=== PATIENT | male | born 1960 | race Caucasian/White ===

== ENCOUNTER → 2020-05-13 08:50 | Outpatient (BNVA) | payer MEDICAID, OTHER, SELFPAY | PROVIDERS: PCP Family Medicine; Visit Provider Urology | DX: N40.1 Benign prostatic hyperplasia with lower urinary tract symptoms (principal); R39.14 Feeling of incomplete bladder emptying; R39.12 Poor urinary stream; Z12.5 Encounter for screening for malignant neoplasm of prostate; Z79.899 Other long term (current) drug therapy | CPT/HCPCS: 51798; 81002; 99202 ==

== ENCOUNTER 2020-05-26 11:21 | Outpatient (REF) | payer MEDICAID, OTHER, SELFPAY ==
--- NOTE | 2020-05-26 11:27 | US_ITS ---
EXAMINATION: US PELVIS LIMITED (BLADDER) CLINICAL INFORMATION: Poor urinary stream. COMPARISON: None TECHNIQUE: Real-time imaging of the bladder. FINDINGS: BLADDER: Well distended. No wall thickening, stone or mass. Bilateral ureteral jets are demonstrated. Prevoid bladder volume is 425.1 mL. Postvoid bladder volume is 149.2 mL. The prostate gland is enlarged and measures 5.8 x 5.2 x 3.7 cm, volume 49 mL. US/US bladder IMPRESSION: Large 149 and postvoid bladder residual. Enlarged prostate gland..
[2020-05-26 13:41] LABS: PSA,Total (Free>4and<10) 2.76 ng/mL (0.00-4.00)
== END 2020-05-26 11:22 | disposition home or self-care (01) ==
LOC: HO.US 11:21
PROVIDERS: PCP Internal Medicine; Visit Provider Urology
DX: N40.1 Benign prostatic hyperplasia with lower urinary tract symptoms (principal); R39.12 Poor urinary stream; N13.8 Other obstructive and reflux uropathy
CPT/HCPCS: 76857; 84153

== ENCOUNTER → 2020-06-15 10:32 | Outpatient (BNVA) | payer MEDICAID, OTHER, SELFPAY | PROVIDERS: PCP Internal Medicine; Visit Provider Urology | DX: N40.1 Benign prostatic hyperplasia with lower urinary tract symptoms (principal); R39.12 Poor urinary stream; R39.14 Feeling of incomplete bladder emptying | CPT/HCPCS: 52000; 81002; 99212 ==

== ENCOUNTER 2020-06-28 06:50 | Day surgery (SDC) | payer MEDICAID, OTHER, SELFPAY ==
[2020-06-21 14:58] VITALS: BMI 30.2
--- NOTE | 2020-06-25 12:09 | HO.ANESPROP2 ---
Documented by User: Ekaterina Gee 06/25/20 12:10 HPI - Anesthesia Eval Consult details Narrative: 60yo M for Laser Ablation Prostate PMFSH Past Medical History Medical History Diabetes Elevated cholesterol GERD (gastroesophageal reflux disease) HTN (hypertension) Lab test negative for COVID-19 virus Sleep apnea Thyroid disease Surgical History Surgical History H/O colonoscopy Social History Social History Alcohol intake: never Smoking Status: Never smoker Use of substances other than those prescribed or required for medical reasons: No Advance Directives Information Provided: No Recently lost weight without trying: No Meds Allergies Allergy/AdvReac Type Severity Reaction Status Date / Time No Known Allergies Allergy Verified 06/21/20 15:06 Home Medications Medication Instructions Recorded Confirmed Type tamsulosin 0.4 mg capsule 0.4 mg PO DAILY 05/13/20 05/13/20 History ferrous sulfate [iron] 325 mg PO DAILY 06/21/20 06/21/20 History insulin glargine [Lantus Solostar 45 unit SUBCUT QAM 06/21/20 06/21/20 History U-100 Insulin] levothyroxine 88 mcg PO DAILY 06/21/20 06/28/20 History lisinopril 1 tab PO DAILY 06/21/20 06/21/20 History metformin 850 mg PO BID 06/21/20 06/21/20 History omeprazole 20 mg PO DAILY 06/21/20 06/28/20 History pravastatin 40 mg PO BEDTIME 06/21/20 06/21/20 History vitamin W66-itkjcuvuk factor 1 cap PO DAILY 06/21/20 06/21/20 History Exam Exam Date and Time: June 25, 2020 1209 Height,Weight and Vital Signs: Height 5 ft 2 in Weight 74.843 kg Assessment and Plan Assessment Anesthesia Assessment: Chart Reviewed Documented by User: Kai Alvarado 06/28/20 07:29 [facility] Past Medical History Medical History Diabetes Elevated cholesterol GERD (gastroesophageal reflux disease) HTN (hypertension) Lab test negative for COVID-19 virus Sleep apnea Thyroid disease Surgical History Surgical History H/O colonoscopy Social History Social History Alcohol intake: never Smoking Status: Never smoker Use of substances other than those prescribed or required for medical reasons: No Advance Directives Information Provided: No Recently lost weight without trying: No Meds Allergies Allergy/AdvReac Type Severity Reaction Status Date / Time No Known Allergies Allergy Verified 06/21/20 15:06 Home Medications Medication Instructions Recorded Confirmed Type tamsulosin 0.4 mg capsule 0.4 mg PO DAILY 05/13/20 05/13/20 History ferrous sulfate [iron] 325 mg PO DAILY 06/21/20 06/21/20 History insulin glargine [Lantus Solostar 45 unit SUBCUT QAM 06/21/20 06/21/20 History U-100 Insulin] levothyroxine 88 mcg PO DAILY 06/21/20 06/28/20 History lisinopril 1 tab PO DAILY 06/21/20 06/21/20 History metformin 850 mg PO BID 06/21/20 06/21/20 History omeprazole 20 mg PO DAILY 06/21/20 06/28/20 History pravastatin 40 mg PO BEDTIME 06/21/20 06/21/20 History vitamin U57-cfpmtuunk factor 1 cap PO DAILY 06/21/20 06/21/20 History Exam Airway Mallampati Class: III TM Dist: >3cm Neck ROM: Full
[2020-06-28] VITALS (7 sets, daily range): BP systolic 102–149; BP diastolic 67–88; PULSE 70–83; RESP 16; TEMP 36–36.7; O2SAT 94–99
[2020-06-28 07:20] LABS: Glucose, Whole Blood 115 mg/dL (60-115)
[2020-06-28] MEDS: Lactated Ringers 1,000 ML 100 ML IVCONT (07:23)
--- NOTE | 2020-06-28 09:34 | MHC.SHP ---
Pre-Procedural Eval Section B Chief Complaint: Benign Prostatic Hyperplasia Details of Present Illness: Ongoing BPH. Here for laser ablation Relevant Family History (Specify if Yes): No Relevant Social History: None Present Medications: see Short Stay Collaborative assessment Medical History: No relevant PMH History of Previous Operations: No relevant previous surgery Allergies: Allergies Allergy/AdvReac Type Severity Reaction Status Date / Time No Known Allergies Allergy Verified 06/21/20 15:06 Review of Systems Sugical H&P ROS: Negative: Constitution, Cardiovascular, Respiratory, Neurological, Psychiatric, Hem-Onc, Allergic/Immunologic, Gastrointestinal, Genitourinary, Musculoskeletal, Integumentary, Endocrine and Eyes/Ears/Nose/Throat Exam Surgical H&P Exam: Normal: HEENT, Normal: Heart, Normal: Lungs, Normal: Extremities, Normal: Abdomen, Normal: Skin and Normal: Neurological Plan Diagnosis/Plan: Unchanged I have reviewed the history and physical and performed a pertinent physical examination on my patient. No changes have occurred unless specified.
[2020-06-28] MEDS: levoFLOXacin 500 MG TABLET PO (09:35)
--- NOTE | 2020-06-28 10:09 | PM.OP ---
Brief Operative Note Date of Service: 06/28/20 Pre-op diagnosis: BPH Post-op diagnosis: same Procedure: Laser ablation of prostate Surgeon: Jluis Ferrera MD Anesthesia: GLMA Estimated blood loss (mL): 0 Pathology: none sent Condition: stable Disposition: same day
--- NOTE | 2020-06-28 10:26 | W.PM.OPN ---
Operative Note Operative Note Date of Service: 06/28/20 Narrative: PreOperative Diagnosis: Incomplete bladder emptying Post Operative Diagnosis: Incomplete bladder emptying Procedure: Laser ablation of prostate Surgeon: Dr Jluis Ferrera Anesthesia: General Indications for procedure: This is a 60-year-old male. Had presented with weakness of stream and incomplete bladder emptying. On alpha-dorian still had residual of 150 cc. Recommendation was to perform a prostate procedure attempt open up the prostate and allow bladder empty. On cystoscopy noted to have a high median lip on the prostate. Risks and benefits were explained. He is willing to proceed. Procedure: After informed consent was verified the patient was brought to the operating room and placed in a supine position. Anesthesia was administered per protocol. The patient was placed in modified dorsal lithotomy position and prepped and draped in a sterile fashion. He was noted to have some meatal narrowing. This was dilated using a meatal dilator. Once dilated the resectoscope was placed. Using the dual wave length laser the median lip of the prostate was released with incisions at the 5 and 7 o'clock position. Intervening tissue was ablated. This helped open up the area. He was noted to have small amount of stone debris within his bladder consistent with incomplete bladder emptying. Hemostasis was controlled adequately. A 22 Nauruan 30 cc balloon catheter was placed the completion the procedure. A belladonna and opiate suppository was placed for postprocedure pain relief. He tolerated procedure well was extubated in operating room transferred in stable condition to the recovery area. Pathology: None Drains: 22 Nauruan Leon catheter
--- NOTE | 2020-06-28 11:48 | HO.POSTANES ---
Post Anesthesia Evaluation Post Anesthesia Evaluation Vital Signs: Vital Signs Temp Pulse Resp BP Pulse Ox 06/28/20 11:05 98.0 F 70 16 124/84 98 06/28/20 10:51 70 16 135/88 97 06/28/20 10:36 73 16 103/67 94 06/28/20 10:31 74 16 102/70 94 06/28/20 10:26 73 16 107/71 95 06/28/20 10:21 96.8 F 73 16 120/81 99 06/28/20 07:16 97.1 F 83 16 149/82 H 99 Anesthesia: General LMA Mental Status: Awake Pain Control: Satisfactory Nausea/Vomiting: None Hydration: Adequate Anesthesia-Related Issues: No Anes. Related Issues
== END 2020-06-28 11:52 | disposition home or self-care (01) ==
PROVIDERS: PCP Internal Medicine; Visit Provider Urology
PROC: 0V507ZZ Destruction of Prostate, Via Natural or Artificial Opening (ICD-10-PCS; CPT 52648; principal; 2020-06-28 08:40)
DX: N40.1 Benign prostatic hyperplasia with lower urinary tract symptoms (principal); R39.14 Feeling of incomplete bladder emptying; R39.12 Poor urinary stream; E11.9 Type 2 diabetes mellitus without complications; I10 Essential (primary) hypertension; Z79.4 Long term (current) use of insulin; Z79.899 Other long term (current) drug therapy
CPT/HCPCS: 52648; 82947; J1100; J2250; J2405; J3010

== ENCOUNTER → 2020-07-06 10:00 | Outpatient (BNVA) | payer MEDICAID, SELFPAY | PROVIDERS: PCP Internal Medicine; Visit Provider Urology | DX: Z46.6 Encounter for fitting and adjustment of urinary device (principal); N40.1 Benign prostatic hyperplasia with lower urinary tract symptoms; N13.8 Other obstructive and reflux uropathy; R39.12 Poor urinary stream; R39.14 Feeling of incomplete bladder emptying | CPT/HCPCS: 51700; 99212 ==

== ENCOUNTER → 2020-08-18 10:24 | Outpatient (BNVA) | payer MEDICAID, OTHER, SELFPAY | PROVIDERS: PCP Internal Medicine; Visit Provider Urology | DX: N40.1 Benign prostatic hyperplasia with lower urinary tract symptoms (principal); R39.14 Feeling of incomplete bladder emptying; R39.12 Poor urinary stream | CPT/HCPCS: 51798; 81002; 99212 ==

== ENCOUNTER → 2021-02-16 10:25 | Outpatient (BNVA) | payer MEDICAID, OTHER, SELFPAY | PROVIDERS: PCP Internal Medicine; Visit Provider Urology | DX: N40.1 Benign prostatic hyperplasia with lower urinary tract symptoms (principal); R39.14 Feeling of incomplete bladder emptying | CPT/HCPCS: 51798; 99212 ==

== ENCOUNTER 2022-02-08 12:21 | Outpatient (REF) | payer OTHER, SELFPAY ==
[2022-02-08 14:10] LABS: PSA,Total (Free>4and<10) 2.71 ng/mL (0.00-4.00)
== END 2022-02-08 12:22 | disposition home or self-care (01) ==
LOC: HO.LAB 12:21
PROVIDERS: PCP Internal Medicine; Visit Provider Urology
DX: Z12.5 Encounter for screening for malignant neoplasm of prostate (principal); N13.8 Other obstructive and reflux uropathy; N40.1 Benign prostatic hyperplasia with lower urinary tract symptoms
CPT/HCPCS: 36415; 84153

== ENCOUNTER → 2022-02-16 11:20 | Outpatient (BNVA) | payer OTHER, SELFPAY | PROVIDERS: PCP Internal Medicine; Visit Provider Urology | DX: N40.1 Benign prostatic hyperplasia with lower urinary tract symptoms (principal); N13.8 Other obstructive and reflux uropathy; R39.12 Poor urinary stream | CPT/HCPCS: 51798; 99212 ==

== ENCOUNTER 2023-03-23 16:21 | Outpatient (REF) | payer OTHER, SELFPAY ==
[2023-03-23 18:30] LABS: Prostate Specific Antigen 3.08 ng/mL (<0.05-4.0)
== END 2023-03-23 16:22 | disposition home or self-care (01) ==
LOC: HO.LAB 16:21
PROVIDERS: Visit Provider Urology
DX: N40.1 Benign prostatic hyperplasia with lower urinary tract symptoms (principal); N13.8 Other obstructive and reflux uropathy
CPT/HCPCS: 36415; 84153

== ENCOUNTER 2023-07-11 14:25 | Outpatient (AMB) | payer OTHER, SELFPAY ==
--- NOTE | 2023-07-11 14:54 | MHC.OFFVIS ---
Intake Intake Visit Reasons: 1Y PSA/PVR(set) Intake Note: Patient is Present for Follow Up PSA Urology Medication: Finasteride (states that he is not on any medications from Dr Ferrera) Antibiotic Allergies: None Blood Thinners: none PVR: 0 Allergies No Known Allergies Allergy (Verified 02/15/22 15:25) HPI HPI Comments History of Present Illness Details Isaac is a pleasant male. He is seen for the following urologic conditions - lower urinary tract symptoms Yearly follow-up PVR remains low PSA 3.0 Effective emptying 12 month follow-up Lower urinary tract symptoms - laser prostatectomy June 2020 Current visit is for - further symptom evaluation - symptoms improved Current treatment includes - finasteride Prior treatments include - 06/27 Laser ablation on prostate Prostate Symptom Score - 05/28 Moderate (9-19) Bother 4 Symptoms include - 05/28 incomplete emptying, frequency, weak stream, straining and are progressing. Prior Prostate Score unknown PSA 2.5-4. - 05/28 2.8, 8. 2.3, 02/27 2.7. 03/31 3.0 Prostate volume 0-50gm Diagnosis imaging - 05/28 bladder ultrasound-prostate 50 g, residual 140 cc Plan will be for PVR in 12 months PFS Medical History Diabetes Elevated cholesterol GERD (gastroesophageal reflux disease) HTN (hypertension) Lab test negative for COVID-19 virus Sleep apnea Thyroid disease Surgical History H/O colonoscopy Social History Alcohol intake: never Review of Systems Const Denies chills and Denies fever(s) Card Reports no additional complaints and Denies syncope Resp Denies cough GI Denies abdominal pain and Denies heartburn Reports as per HPI and Denies change in libido Neuro Denies syncope Psych Denies change in libido Endo Denies change in libido Physical Exam Const General: cooperative, healthy appearing, comfortable and no acute distress Orientation/consciousness: patient oriented x3 HEENT Face and sinus: Yes normal facial exam Mouth: moist mucous membranes Neck Neck: Yes normal visual inspection, Yes full ROM and Yes trachea midline Chest Chest palpation & inspection: normal inspection of the chest Resp Effort & Inspection: normal respiratory effort, able to speak in complete sentences and no respiratory distress GI Inspection: Yes normal to inspection Back/Spine/Pelvis Cervical Spine: normal cervical lordosis Thoracic/Lumbar Spine: thoracic and lumbar spine normal to inspection Skin General skin exam: no rashes or lesions noted Neuro General: patient oriented x3, gait normal, tone normal and moves all extremities Extrem General: Yes normal to inspection and Yes capillary refill normal Office Procedures Post Void Residual Post Residual Void Post Void Residual (PVR): 0 [id number] Void Residual by ultrasound Assessment & Plan Assessment & Plan (1) Weak urinary stream: Code(s): R39.12 - Poor urinary stream (2) BPH loc w urin obs/LUTS: Code(s): N40.1 - Benign prostatic hyperplasia with lower urinary tract symptoms (3) Incomplete emptying of bladder due to benign prostatic hyperplasia: Code(s): N40.1 - Benign prostatic hyperplasia with lower urinary tract symptoms; R39.14 - Feeling of incomplete bladder emptying Plan Twelve month follow-up Orders: Orders AMB Post Void Residual by ultrasound Today N40.1 - Benign prostatic hyperplasia with lower urinary tract symptoms, R39.14 - Feeling of incomplete bladder emptying Prostate Specific Antigen 364 Days N40.1 - Benign prostatic hyperplasia with lower urinary tract symptoms Patient Instructions: Imaging studies, laboratory and physical exam results were discussed and reviewed in detail. No major barriers to patient understanding were identified. An opportunity to ask questions regarding the treatment plan was provided. All questions were answered. The patient expressed understanding and agreement with the above treatment plan. The patient is aware they should contact our office by phone for worsening of their current condition or the appearance of new urologic symptoms. Compliance is encouraged with any medications and followup testing that is ordered. It is a privilege to participate in the urologic care of your patient. If you have any questions or concerns regarding treatment for the above conditions, or other urologic issues, please do not hesitate to contact me. The office telephone contact is [phone]. This note is constructed using voice recognition software. While every effort has been made to ensure accuracy laborer powerhouse errors may have been included. Yours sincerely, Dr Jluis Ferrera MD, [facility] - Urology Providers of Expert, Compassionate Care for the Genitourinary System Coding Level of Care Code Est Pt Level 4 (32103) Diagnoses Weak urinary stream R39.12 BPH loc w urin obs/LUTS N40.1 Incomplete emptying of bladder due to benign prostatic hyperplasia N40.1; R39.14 CPT Codes Post Residual Void - PVR CPT Code: 92493-Arii Void Residual by ultrasound ([id number])
== END 2023-07-11 15:19 | disposition home or self-care (01) ==
PROVIDERS: PCP Internal Medicine; Visit Provider Urology
DX: N40.1 Benign prostatic hyperplasia with lower urinary tract symptoms (principal); R39.12 Poor urinary stream; R39.14 Feeling of incomplete bladder emptying
CPT/HCPCS: 99213

== ENCOUNTER → 2023-07-11 14:25 | Outpatient (BNVA) | payer OTHER, SELFPAY | PROVIDERS: Visit Provider Urology | DX: N40.1 Benign prostatic hyperplasia with lower urinary tract symptoms (principal); R39.12 Poor urinary stream; R39.14 Feeling of incomplete bladder emptying | CPT/HCPCS: 51798; 99212 ==

== ENCOUNTER 2023-08-03 11:41 | Outpatient (REF) | payer OTHER, SELFPAY ==
[2023-08-03 13:46] LABS: Anion Gap 14 (12-20); Blood Urea Nitrogen 13 mg/dL (9-16); Calcium 9.4 mg/dL (8.4-10.2); Carbon Dioxide 28 mmol/L (22-29); Chloride 102 mmol/L (96-108); Estimated Glomerular Filt Rate > 60; Glucose Random 185 mg/dL (60-115); Potassium 3.5 mmol/L (3.3-5.1); Sodium 140 mmol/L (135-145)
== END 2023-08-03 11:42 | disposition home or self-care (01) ==
LOC: HO.HHCL 11:41
PROVIDERS: Visit Provider Internal Medicine
DX: E11.649 Type 2 diabetes mellitus with hypoglycemia without coma (principal); Z79.4 Long term (current) use of insulin
CPT/HCPCS: 36415; 80048

== ENCOUNTER 2023-10-23 09:53 | Outpatient (REF) | payer OTHER, SELFPAY ==
[2023-10-23 13:45] LABS: Creatinine Urine 83.91 mg/dL; Microalbum/Creatinine Ratio Ur 7.1 ug/mg cr (<30)
[2023-10-23 14:01] LABS: Alanine Aminotransferase 21 U/L (0-40); Albumin Level 4.5 g/dL (3.5-5.0); Alkaline Phosphatase 74 U/L (39-117); Aspartate Amino Transferase 18 U/L (5-37); Bilirubin Direct 0.1 mg/dL (0.0-0.5); Bilirubin Total 0.3 mg/dL (0.0-1.0); Cholesterol 139 mg/dL (<200); HDL Cholesterol 53 mg/dL (>40); LDL Cholesterol Calculated 70 mg/dL (<100); Total Protein 7.6 g/dL (6.5-8.0); Triglycerides 82 mg/dL (<150)
== END 2023-10-23 09:54 | disposition home or self-care (01) ==
LOC: HO.HHCL 09:53
PROVIDERS: Visit Provider Internal Medicine
DX: E11.649 Type 2 diabetes mellitus with hypoglycemia without coma (principal); Z79.4 Long term (current) use of insulin
CPT/HCPCS: 36415; 80061; 80076; 82043; 82570

== ENCOUNTER 2023-12-06 12:52 | Outpatient (REF) | payer OTHER, SELFPAY ==
--- NOTE | ~2023-12-06 | XR_ITS ---
EXAMINATION: XR FOOT, RIGHT CLINICAL INFORMATION: Order states right plantar pain. Patient states one month denies injury COMPARISON: None available. TECHNIQUE: AP, lateral, and oblique views of the right foot. FINDINGS: Extensive vascular calcifications. Moderate posterior and plantar calcaneal spurs. 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 XR/XR foot RT min 3V IMPRESSION: 1. Moderate posterior and plantar calcaneal spurs. 2. 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 3. Extensive vascular calcifications.
== END 2023-12-06 12:53 | disposition home or self-care (01) ==
LOC: HO.HHCX 12:52
PROVIDERS: Visit Provider Internal Medicine
DX: M79.671 Pain in right foot (principal)
CPT/HCPCS: 73630

== ENCOUNTER 2024-06-12 14:48 | Outpatient (REF) | payer OTHER, SELFPAY ==
[2024-06-12 16:38] LABS: Estimated Average Glucose 160 mg/dL; Hemoglobin A1C 190.7705 umol/L; Hemoglobin A1c % 7.2 % (<6.0); Total Hemoglobin (HGBA1C) 3425.8811 umol/L
[2024-06-12 17:03] LABS: TSH reflex Free T4 1.89 uIU/mL (0.32-4.0)
== END 2024-06-12 14:49 | disposition home or self-care (01) ==
LOC: HO.HHCL 14:48
PROVIDERS: Visit Provider Internal Medicine
DX: E03.9 Hypothyroidism, unspecified (principal); E11.9 Type 2 diabetes mellitus without complications
CPT/HCPCS: 36415; 83036; 84443

== ENCOUNTER 2024-08-19 08:46 | Outpatient (REF) | payer OTHER, SELFPAY ==
--- OUTSIDE RECORDS SUMMARY | 2024-08-19 09:09 | XMS_ITS | Referral Summary ---
Author Organization [facility] Address [address] [place] [address] Care Team Providers Care [employer]erry [employer] Agent Name Role Phone Antonia Ovalle Primary Care Provider [phone] Allergies Active Allergy Reactions Criticality Noted Date Comments Pollen Extracts Itching 01/31/2022 Pork/Porcine Containing Products Hives Medications atorvastatin (LIPITOR) 40 mg tablet Take 40 mg by mouth nightly. 12/07/2021 Active Freestyle Lite test strips TEST BLOOD SUGAR THREE TIMES DAILY 01/02/2022 Active buPROPion XL (WELLBUTRIN XL) 300 mg tablet 01/27/2022 Activ e carBAMazepine XR (TEGretol XR) 100 mg tablet 01/27/2022 Active Cardizem LA 120 mg 24 hr tablet SMARTSI Tablet(s) By Mouth Every Evening 01/05/2022 Active ergocalciferol (VITAMIN D2) 1,250 mcg (50,000 unit) capsule Take 50,000 Units by mouth once a week. 07/19/2021 Active ferrous gluconate (FERGON) 324 mg (38 mg iron) tablet SMARTSI Tablet(s) By Mouth Morning-Eveni ng 05/02/2021 Active gabapentin (NEURONTIN) 100 mg capsule SMARTSI Capsule(s) By Mouth Morning-Eveni ng 02/22/2021 Active Lantus Solostar U-100 Insulin 100 unit/mL (3 mL) insulin pen Inject 45 Units under the skin once a day. 01/19/2022 Active TRUEplus Lancets lancet 33 gauge TEST BLOOD SUGAR UP TO THREE TIMES DAILY 01/02/2022 Active levothyroxine (SYNTHROID, LEVOTHROID) 75 mcg tablet 01/27/2022 Active loratadine (CLARITIN) 10 mg tablet 01/27/2022 Active losartan-hydroc hlorothiazide (HYZAAR) 100-25 mg per tablet 01/27/2022 Activ e metFORMIN (GLUCOPHAGE) 850 mg tablet 01/27/2022 Activ e omeprazole (PriLOSEC) 20 mg capsule 01/27/2022 Active Sure Comfort Pen Needle USE DIRECTED EVERY DAY 11/09/2021 Active pravastatin (PRAVACHOL) 40 mg tablet Take 40 mg by mouth nightly. 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 Primary open angle glaucoma (POAG) of both eyes, mild stage 01/31/2022 Social History Tobacco Use Types Packs/Day Years Used Date Smoking Tobacco: Never Smokeless Tobacco: Never Tobacco Cessation:Counseling Given: Not Answered Sex and Gender Information Value Date Recorded Sex Assigned at Not on file Legal Sex Male 4:05 PM EDT Gender Identity Not on file Sexual Orientation Not on file Plan of Treatment Not on file Insurance [facility]FREE CARE Care Teams Ferry Terminal Agent Relationship Specialty Start Date End Date Antonia Ovalle [address] [place] [address] PCP - General Internal Medicine 01/26/21
--- OUTSIDE RECORDS SUMMARY | 2024-08-19 09:09 | XMS_ITS | Encounter Summary ---
Author Organization [employer] Address [address] [facility] [address] [facility] [place] [address] Care Team Providers Care Professor Of Pathology Name Role Phone Antonia Ovalle MD Primary Care Provider + Joshua Black PharmD Unavailable [phone] Encounter Details Date Type Department Care Team (Late st Contact Info) Description 12/21/2022 Abstract [facility] MEDICINE [address] [place] [id number] Antonia Ovalle MD [address], [place] [phone] Social History Tobacco Use Types Packs/Day Years Used Date Smoking Tobacco: Never Passive Smoke Exposure: Never Smokeless Tobacco: Never Alcohol Use Standard Drinks/Week Comments Never 0 (1 standard drink = 0.6 oz pur e alcohol) Sex and Gender Information Value Date Recorded Sex Assigned at Male 05/08/2022 10:28 AM EDT Legal Sex Male 10:28 AM EDT Gender Identity Male 05/08/2022 10:28 AM EDT Sexual Orientation Straight 05/08/2022 10 :28 AM EDT COVID-19 Exposure Response Date Recorded In the last 10 days, have yo u been in contact with someone who was confirmed or suspected to have Coronavirus/COVID-19? No / Unsure 11/27/2022 3:55 PM EDT documented as of this encounter Plan of Treatment Upcoming Encounters Date Type Department Care Team (Late st Contact Info) Description 09/15/2024 4:00 PM EDT Office Visit [facility] MEDICINE [address] [place] [address] Antonia Ovalle MD [address] [place] [address] 09/29/2024 2:30 PM EDT Office Visit [facility] MEDICINE [address] [place] [address] Antonia Ovalle MD [address] [place] [address] 02/10/2025 3:00 PM EDT Office Visit [facility] ADULT DENTAL [address], [place] [phone] Christa Wells [address] [place] [address] documented as of this encounter Goals Goal Patient Goal Type Associated Problems Recent Progress Patient-Stated? Author Blood Pressure < 140/90 Blood Pressure 126/74( 025 2:49 PM EST) No Joshua Black, PharmD documented as of this encounter Procedures Procedure Name Priority Date/Time Associated Diagnosis Comments COLONOSCOPY Routine 01/30/2019 2:31 PM EDT documented in this encounter Results * Colonoscopy (01/30/2019 2:31 PM EDT) Colonoscopy Normal Normal Narrative Ashley Kern - 01/30/2019 2:31 PM EDT Recommended 5 year follow up ([facility]) us Historical Provider HEALTH MAINTENANCE Edited Result - Final documented in this encounter Visit Diagnoses Not on filedocumented in this encounter Care Teams Professor Of Pathology Relationship Specialty Start Date End Date [place] [address] PCP - General Family Medicine 02/27/19 Joshua Black, PharmD [address] [place] [id number] Pharmacist Internal Medicine 10/16/22 documented as of this encounter
--- OUTSIDE RECORDS SUMMARY | 2024-08-19 09:09 | XMS_ITS | Clinical Summary ---
Author Organization [email or web address] Address [address] [place] [address] Care Team Providers Care Business Operations Specialist Name Role Phone Antonia Ovalle MD Primary Care Provider + Joshua Black PharmD Unavailable [phone] Allergies Active Allergy Reactions Criticality Noted Date Comments Gramineae Pollens Itching 01/31/2022 Pork (Porcine) Protein Hives 07/02/2021 Shellfish Allergy 01/25/2023 Medications omega-3 (Fish Oil) 1000 MG capsule 2 capsules once daily OTC Active glucose (Glutose) 40 % gel oral gelIndications:T ype 2 diabetes mellitus without complication, with long-term current use of insulin (CMS/[facility]) Take 15 g by mouth if needed for low blood sugar. 60 g 3 023 Active FREESTYLE LITE test stripIndications :Type 2 diabetes, diet controlled (CMS/HCC) Use 3x/d 100 strip 11 024 Active rosuvastatin (Crestor) 10 MG tabletIndication s:Mixed hyperlipidemia TAKE 1 TABLET BY MOUTH AT BEDTIME 90 tablet 3 024 Active carBAMazepine XR (TEGretol XR) 100 MG 12 hr tablet TAKE 1 TABLET BY MOUTH TWICE DAILY IN THE MORNING AND IN THE EVENING 60 tablet 5 024 Active levothyroxine (Synthroid, Levoxyl) 75 MCG tablet TAKE 1 TABLET BY MOUTH EVERY MORNING 30 tablet 5 024 Active metFORMIN (Glucophage) 850 MG tablet TAKE 1 TABLET BY MOUTH TWICE DAILY IN THE MORNING AND IN THE EVENING WITH FOOD 60 tablet 5 Active latanoprost (Xalatan) 0.005 % ophthalmic solution Administer 1 drop into both eyes at bedtime. 2.5 mL 2024 Active losartan-hydroCH LOROthiazide (Hyzaar) 100-25 MG tabletIndication s:Primary hypertension TAKE 1 TABLET BY MOUTH EVERY MORNING 30 tablet 5 024 Active dilTIAZem SR (Cardizem SR) 120 MG 12 hr capsuleIndicatio ns:Primary hypertension TAKE 1 CAPSULE BY MOUTH EVERY EVENING 30 capsule 5 024 Active buPROPion XL (Wellbutrin XL) 300 MG 24 hr tabletIndication s:Anxiety TAKE 1 TABLET BY MOUTH EVERY MORNING 30 tablet 5 Active aspirin 81 MG EC tablet Take 1 tablet (81 mg) by mouth Once per day. 90 tablet 3 024 Active loratadine (Claritin) 10 MG tabletIndication s:Chronic rhinitis TAKE 1 TABLET BY MOUTH EVERY MORNING 90 tablet 1 024 Active omeprazole (PriLOSEC) [address] capsuleIndicatio ns:Gastroesophag eal reflux disease without esophagitis Take 1 capsule (20 mg) by mouth before breakfast. Do not crush or chew. 90 capsule 2 025 Active prazosin (Minipress) 2 MG capsuleIndicatio ns:Benign prostatic hyperplasia without lower urinary tract symptoms Take 1 capsule (2 mg) by mouth at bedtime. 90 capsule 2 025 Active insulin glargine (Lantus SoloStar) 100 UNIT/ML penIndications:T ype 2 diabetes mellitus without complication, with long-term current use of insulin ([facility]) INJECT 25 UNITS SUBCUTANEOUSLY EVERY MORNINGINJECT 25 UNITS SUBCUTANEOUSLY EVERY MORNING 15 mL 025 Active omeprazole (PriLOSEC) [address] capsuleIndicatio ns:Gastroesophag eal reflux disease without esophagitis TAKE 1 CAPSULE BY MOUTH EVERY MORNING BEFORE MEALS 90 capsule 2 024 2024 Discontinued(R eorder (will not trigger notification to Pharmacy)) prazosin (Minipress) 2 MG capsuleIndicatio ns:Benign prostatic hyperplasia without lower urinary tract symptoms TAKE 1 CAPSULE BY MOUTH AT BEDTIME 90 capsule 2 024 2024 Discontinued(R eorder (will not trigger notification to Pharmacy)) Lantus SoloStar 100 UNIT/ML penIndications:T ype 2 diabetes mellitus without complication, with long-term current use of insulin ([facility]) INJECT 25 UNITS SUBCUTANEOUSLY EVERY MORNING 15 mL 3 024 2024 Discontinued(R eorder (will not trigger notification to Pharmacy)) Active Problems Problem Noted Date Diagnosed Date Localized gingival recession 02/07/2024 Missing teeth, acquired 02/07/2024 Type 2 diabetes mellitus wit h hypoglycemia without coma, with long-term current use of insulin 01/18/2024 Assessment & Plan (01/18/2024 1:28 PM EDT): Controlled. A1c is at goal. Continue on Lantus 25u/d + metformin bid Counseled re more frequent low calorie/carb meals. Check fgstk 2x daily Encouraged physical activity as tolerated. FU in 3 months. Calcaneal spur 01/17/2024 Right foot pain 12/06/2023 Assessment & Plan (12/07/2023 2:23 PM EDT): Ro plantar spur, advised to use plantar insole with addt arch support FU with me in , we'll consider podiatry referral. Plantar fasciitis of right foot 12/06/2023 Assessment & Plan (12/07/2023 2:22 PM EDT): Order Xray of right foot Advised to use plantar insole with arch support Myalgia 12/06/2023 Assessment & Plan (12/07/2023 2:21 PM EDT): It could be related to statin, he will hold crestor x 1mo and fu with me at upcoming appt. I told him to increase weight lifting to improve muscle mass, advised re proper hydration. Plantar ulcer of right foot, limited to breakdow n of skin 05/28/2023 Assessment & Plan (01/18/2024 1:30 PM EDT): On right foot, sec to tinea pedis. Advised to keep area clean and dry, use clotrimazole cream bid FU with me in 3-4w or earlier prn worsening erythema, fever, foot pain Assessment & Plan (05/28/2023 6:13 PM EST): Nothing to be infected Hospital [facility]er to use otc Vaseline ointment on affected area and cover with donut type dressing F/u in 3 weeks PRN for complete solution Encounter for preventive health examination 08/10 Assessment & Plan (08/30/2022 12:40 PM EST): Discussed with patient re increase fresh fruit and vegetable intake. Counseled re moderate exercise as tolerated, up to 20min/d Patient feels safe at home. Eye exam: Up to date. Next one due January 2023. FU with ophthalmology at [facility] for glaucoma FU. CRC screen: Up to date. Next one due 2023. Lipids/FBS: Up to date. Next one due 06/2023 Vaccinations: PCV20 today, otherwise other vaccinations are up to date. Dental visit: Up to date. Next one due February 2023. Dental plaque 08/29/2022 Acquired hypothyroidism 08/25/2022 Assessment & Plan (08/30/2022 11:37 AM EST): TSH is at goal. Continue levothyroxine 75 mcg and FU TSH in 6-8 months Anemia 08/25/2022 Benign prostatic hyperplasia 08/25/2022 Essential hypertension 08/25/2022 Assessment & Plan (01/18/2024 1:29 PM EDT): Controlled, repeated is 140/82. Compliant w/meds Continue losartan/hctz same dose Counseled re low salt diet/increase moderate physical activity. Check home BP BIW and prn CP/NOYOLA/JAMISON Non smoking patient. Assessment & Plan (08/30/2022 11:37 AM EST): BP is at goal. Controlled. Compliant w/meds Continue diltiazem losartan/HCTZ same dose Counseled re low salt diet/increase moderate physical activity. Check home BP BIW and prn CP/NOYOLA/JAMISON Non smoking patient. Gastroesophageal reflux disease 08/25/2022 Hypertriglyceridemia 08/25/2022 Lateral epicondylitis of left elbow 08/25/2022 Obstructive sleep apnea syndrome 08/25/2022 Polyneuropathy due to type 2 diabetes mellitus 0 08/25/2022 Recurrent major depression in partial remission 08/25/2022 Steatosis of liver 08/25/2022 Type 2 diabetes mellitus without complication Assessment & Plan (12/07/2023 2:19 PM EDT): Controlled. Last A1c on 08/2023 was at goal. Continue on Lantus 25u/d + Metformin Counseled re more frequent low calorie/carb meals. Check fgstk 2x daily Encouraged physical activity as tolerated. FU in 3 months. Assessment & Plan (12/07/2023 2:17 PM EDT): >>ASSESSMENT AND PLAN FOR TYPE 2 DIABETES MELLITUS WITH HYPOGLYCEMIA WITHOUT COMA, WITH LONG-TERM CURRENT USE OF INSULIN ([facility]) WRITTEN ON 11/27/2022 5:33 PM BY PATTI CESAR Pt is symptomatic with 3 episodes within the past month. Decrease lantus to 40 units and use glucose gel PRN symptoms. Continue metformin and FU with me in 3 weeks. caution regarding hypoglycemia, to have small and frequent meals. Assessment & Plan (05/28/2023 6:12 PM EST): Controlled Will keep using Lantus 25 units Patient will continue monitoring Hypoglycemia Use glucose gel PRN No change in other medications Assessment & Plan (01/02/2023 1:01 PM EDT): No further episode of hypoglycemia. FU in 2 months and check A1C continue metformin 850 BID + Lantus 40 units daily Counseled re more frequent low calorie/carb meals. Encouraged physical activity as tolerated. FU with me in 2 months Assessment & Plan (08/30/2022 11:36 AM EST): Controlled. A1c is at goal. Continue Metformin 850 BID + Lantus 45 units daily Counseled re more frequent low calorie/carb meals. Check fgstk daily Encouraged physical activity as tolerated. FU at next appointment. Primary open angle glaucoma (POAG) of both eyes, mild stage 01/31/2022 Incipient cataract 01/31/2022 Congenital ectropion uveae 01/31/2022 Resolved Problems Problem Noted Date Diagnosed Date Resolved Date Toenail bruise, left, subsequent encounter 08/30/2022 05/28/2023 Assessment & Plan (11/27/2022 5:33 PM EDT): resolved. counseled pt to wear appropriate shoes and review toenails and foot daily. Assessment & Plan (08/30/2022 11:39 AM EST): FU at next appointment and if still present will refer to podiatry. Great toe pain, left 08/25/2022 023 Lower urinary tract symptoms 08/25/2022 05/28/2023 Type 2 diabetes, diet controlled 08/25/2022 05/28/2023 Encounters Date Type Department Care Team Description 08/11/2024 3:00 PM EST Office Visit [facility] [address] [place] [address] Christa Wells Dental plaque (Primary Dx) 07/31/2024 Refill [facility] [address] [place] [address] Antonia Ovalle MD Gastroesophageal reflux disease without esophagitis; Benign prostatic hyperplasia without lower urinary tract symptoms; Type 2 diabetes mellitus without complication, with long-term current use of insulin ([facility]) 07/31/2024 Refill [facility] [address] [place] [address] Antonia Ovalle MD Type 2 diabetes mellitus without complication, with long-term current use of insulin ([facility]) 07/10/2024 Telephone [facility] [address] [place] [address] Antonia Ovalle MD September07/03/2024 Refill [facility] [address] [place] [address] Antoina Ovalle MD Chronic rhinitis 2024 Telephone [facility] [address] [place] [phone] Antonia Ovalle MD Appointment Request 06/13/[address] [phone] Antonia Ovalle MD Results 06/13/[address] [phone] Antonia Ovalle MD 06/04/[address] [phone] Antonia Ovalle MD Primary hypertension; Anxiety from Last 3 Months Immunizations Name Administration Dates Next Due Hep B, adult 09/06/2021,06/01/2021,05/04/2021 Influenza Injectable Quadriv alant Preservative Free IIV4 MDCK 04/09/2023,05/04/2022,04/12/2021,04/21 Influenza, seasonal, injecta ble, preservative free 05/16/2024 Moderna Covid-19 Vaccine 12+ 11/16/2021, 06/01/2021,11/17/2020,10/20 Pfizer Covid-19 Vaccine 12+ 05/16/2024,0 09/04/2023,10/14/2020,09/23 Pfizer Covid-19 Vaccine 12+ Bivalent 05/04/2022 Pneumococcal Conjugate PCV 20 08/30/2022 Pneumococcal Polysaccharide PPSV23 06/29/2009 RSV Bivalent 06/12/2024 TD (adult), 2 Lf tetanus tox oid, preservative free, adsorbed 01/17/2010 Tdap 07/19/2020 Zoster, Recombinant 06/23/2020,04/21/2020 Family History Medical History Relation Name Comments Glaucoma Sister Relation Name Status Comments Sister Social History Tobacco Use Types Packs/Day Years Used Date Smoking Tobacco: Never Passive Smoke Exposure: Never Smokeless Tobacco: Never Tobacco Cessation:Counseling Given: Not Answered Alcohol Use Standard Drinks/Week Comments Never 0 (1 standard drink = 0.6 oz pur e alcohol) Alcohol Answer Date Recorded Frequency of Alcohol Consumption Not on file 12/06/2023 Average Number of Drinks Not on file 024 Frequency of Binge Drinking Not on file 11/08 Score 0 12/06/2023 Depression Answer Date Recorded Patient Health Questionnaire-9 Score 6 02/19/2023 Housing Stability Answer Date Recorded What is your housing situation today? I have katja kenney 05/06/[address] you li ve. Do you have problems with any of the following? None of the above 05/06/2023 Food Insecurity Answer Date Recorded Within the past 12 months, y ou worried that your food would run out before you got money to buy more: Never True 05/06/2023 Within the past 12 months,th e food you bought just didn't last and you didn't have enough money to get more: Never True Transportation Answer Date Recorded In the past 12 months, has l ack of transportation kept you from medical appts, meetings, work or from getting things needed for daily living? No 05/06/2023 Utilities Answer Date Recorded In the past 12 months, has t he electric, gas, oil or water company threatened to shut off services in your home? No 05/06/2023 Depression Answer Date Recorded Patient Health Questionnaire-2 Score 0 02/19/2023 Sex and Gender Information Value Date Recorded Sex Assigned at Male 05/08/2022 10:28 AM EDT Legal Sex Male 10:28 AM EDT Gender Identity Male 05/08/2022 10:28 AM EDT Sexual Orientation Straight 05/08/2022 10 :28 AM EDT Last Filed Vital Signs Vital Sign Reading Time Taken Comments Blood Pressure 126/74 08/11/2024 2:49 PM EST Pulse 64 12/06/2023 12:01 PM EDT Temperature 36.3 ??C (97.4 ??F) 12/06/2023 1 2:01 PM EDT Respiratory Rate 16 12/06/2023 12:0 1 PM EDT Oxygen Saturation 99% 12/06/2023 12: 01 PM EDT Inhaled Oxygen Concentration - - Weight 67.9 kg (149 lb 12.8 oz) 024 12:01 PM EDT Height 157.5 cm (5' 2 ) 12/06/2023 12:0 1 PM EDT Body Mass Index 27.4 12/06/2023 12:01 PM EDT Plan of Treatment Upcoming Encounters Date Type Department Care Team (Late st Contact Info) Description 09/15/2024 4:00 PM EDT Office Visit [facility] [address] [place] [address] Antonia Ovalle MD [address] [place] [address] 09/29/2024 2:30 PM EDT Office Visit [facility] [address] [place] [address] Antonia Ovalle MD [address] [place] [address] 02/10/2025 3:00 PM EDT Office Visit [facility] [address] [place] [address] Russell, Christa [address] [place] [address] Health Maintenance Due Date Last Done Comments Anal Pap 1961 CT Colonography 1961 FIT DNA/Cologuard 1961 FIT 1961 FOBT 1961 HIV Screening 1961 Sigmoidoscopy 1961 Hepatitis A Vaccines (1 of 2 - Risk 2-dose series) 1980 Colonoscopy 01/31/2024 01/30/2019 Colorectal Cancer Screening 01/31/2024 Depression Screening 02/20/2024 02/19/2023, 02/20/20 23 Dental Oral Exam 09/04/2024 03/03/2024, 06/15/2022 Diabetes: Hemoglobin A1C 09/10/2024 024, 09/03/2023, 05/28/2023, Additional history exists SDOH Screening 09/23/2024 09/24/2023 Diabetes: Urine Protein Screening 10/22/2024 10/23/2023, 12/15/2021, 04/21/2020 Lipid Panel 10/22/2024 10/23/2023, 06/09, 12/15/2021, Additional history exists Alcohol/Substance Use Screening 12/05/2024 12/06/2023 Diabetes: Foot Exam 12/05/2024 12/06/2023, 12/06/2023, 12/06/2023, Additional history exists Dental X-Ray: Bitewings 02/07/2025 02/07/2024, 06/15 Dental Prophylaxis 02/09/2025 08/11/2024, 0 02/07/2024, 08/29/2022 Dental X-Ray: Full Mouth 06/16/2025 06/15/2022 Tobacco Screening 08/11/2025 08/11/2024 Eye Exam 01/30/2026 01/31/2024, 01/07, 01/31/2024, Additional history exists DTaP/Tdap/Td Vaccines (2 - Td or Tdap) 07/19/2030 07/19/2020, 01/17/2010 Zoster Vaccines Completed 06/23/2020, 04/21/2020 Hepatitis C Screening Completed 04/27/2021 Hepatitis B Vaccines Completed 09/06/2021, 06/01/2021, 05/04/2021 Pneumococcal Vaccine: 50+ Years Completed 08/30/2022, 06/29/2009 COVID-19 Vaccine Completed 05/16/2024, , 05/04/2022, Additional history exists Influenza Vaccine Completed 05/16/2024, , 05/04/2022, Additional history exists RSV Patients and Patients Aged 60 years or older Completed 06/12/2024 HIB Vaccines Aged Out No longer eligi ble based on patient's age to complete this topic HPV Vaccines Aged Out No longer eligi ble based on patient's age to complete this topic IPV Vaccines Aged Out No longer eligi ble based on patient's age to complete this topic Meningococcal Vaccine Aged Out No brianne jesus eligible based on patient's age to complete this topic RSV under 20 months Aged Out No longe r eligible based on patient's age to complete this topic Rotavirus Vaccines Aged Out No longer eligible based on patient's age to complete this topic Goals Goal Patient Goal Type Associated Problems Recent Progress Patient-Stated? Author Blood Pressure < 140/90 Blood Pressure 126/74( 025 2:49 PM EST) No Joshua Black, NathalieD Procedures Procedure Name Priority Date/Time Associated Diagnosis Comments ORAL HYGIENE INSTRUCTIONS Routine 08/11/2024 3:00 PM EST Dental plaque ADJUNCTIVE GENERAL SERVICES - PROFESSIONAL VISITS - CASE PRESENTATION, SUBSEQUENT TO DETAILED AND EXTENSIVE TREATMENT PLANNING Routine 08/11/2024 3:00 PM EST Dental plaque PROPHYLAXIS - ADULT Routine 08/11/2024 3 :00 PM EST Dental plaque TSH W/REFLEX TO FT4 Routine 06/12/2024 2 :50 PM EST HEMOGLOBIN A1C Routine 06/12/2024 2:50 PM EST PERIODIC ORAL EVALUATION - ESTABLISHED PATIENT Routine 03/03/2024 3:30 PM EDT BITEWINGS - 4 RADIOGRAPHIC IMAGES Routine 02/07/2024 10:00 AM EDT Dental plaque Localized gingival recession Missing teeth, acquired ALBUMIN, RANDOM URINE W/CREATININE Routine 10/23/2023 9:57 AM EDT LIPID PANEL, STANDARD Routine 10/23/2023 9:54 AM EDT DIAGNOSTIC - DIAGNOSTIC IMAGING - INTRAORAL - COMPREHENSIVE SERIES OF RADIOGRAPHIC IMAGES Routine 06/15/2022 8:00 AM EST Encounter for dental examination and cleaning with abnormal findings ZZZ HISTORICAL HEPATITIS C AB W/REFL TO HCV RNA, QN, PCR Routine 04/27/2021 1:10 PM EDT HM COLONOSCOPY Routine 01/30/2019 2:31 PM EDT from Last 3 Months or Most Recently Relevant to Health Maintenance Results * TSH with Reflex to Free T4 (06/12/2024 2:50 PM EST) TSH reflex Free T4 1.89 0.32 - 4.0 uIU/mL [facility] 06/12/2024 2:50 PM EST 06/12/2024 4:19 PM EST us Antonia Ovalle MD LAB BLOOD ORDERABLES Fin al Result [facility] [address] [place] [phone] * (ABNORMAL) Hemoglobin A1c (06/12/2024 2:50 PM EST) Hemoglobin A1c 7.2(H) <6.0 % [facility] Comment:Hemoglobin A1C Refer ence Range Adults: 4.8 - 6.0 % Non diabetic: < 6.0 % Goal: < 7.0 %Additional Action Suggested: > 8.0 %Note: Hemoglobin A1c results are invalid for patients with abnormal amounts of HbF. Blood transfusions may impact the HbA1c concentration in the patient sample. Estimated Average Glucose 160 mg/dL [facility] Comment:eAG = Estimated ave rage glucose which is %A1C expressed asaverage glucose, using the formula of the [id number] Glucose study (ADAG), Diabetes Care, Vol.31,#8,Feb. 2007 06/12/2024 2:50 PM EST 06/12/2024 4:14 PM EST us Antonia Ovalle MD LAB BLOOD ORDERABLES Fin al Result [facility] [address] [place] [phone] * Albumin, Random Urine W/Creatinine (10/23/2023 9:57 AM EDT) Creatinine, Urine 83.91 mg/dL [facility] Microalbumin Urine 6.0 mg/L [facility] Microalbum Creatinine Ratio Ur 7.1 <30 ug/mg cr [facility] Comment:Albumin/Creatinine R atio Reference Ranges: Normal: < 30 ug/mg creatinine Microalbuminuria: 30 - 300 ug/mg creatinineClinical Albuminuria: > 300 ug/mg creatinine 10/23/2023 9:57 AM EDT 10/23/2023 11:37 AM EDT us Antonia Ovalle MD LAB URINE ORDERABLES Fin al Result [facility] [address] [place] [phone] [phone] * Lipid Panel, Standard (10/23/2023 9:54 AM EDT) Triglycerides 82 <150 mg/dL [facility] Comment:Desirable Triglyceri de: less than 150 mg/dLBorderline High Triglyceride 150-199 mg/dLHigh Triglyceride: 200-499 mg/dLVery High Triglyceride: greater than or equal to 5OO mg/dL Cholesterol 139 <200 mg/dL [facility] Comment:Desirable Cholestero l: less than 200 mg/dLBorderline High Cholesterol: 200-239 mg/dLHigh Cholesterol: greater than 239 mg/dL LDL Cholesterol Calculated 70 <100 mg/dL [facility] Comment:Desirable LDL: less than 100 mg/dLNear Optimal/Above Optimal LDL: 110- 129 mg/dLBorderline High LDL: 130-159 mg/dLHigh LDL: 160-189 mg/dLVery High LDL: greater than or equal to 190 mg/dL HDL Cholesterol 53 >40 mg/dL [facility] Comment:Desirable HDL: great er than 40 mg/dL Note: This HDL assay may give artificially low results in patients with liver disease. 10/23/2023 9:54 AM EDT 10/23/2023 11:26 AM EDT us Antonia Ovalle MD LAB BLOOD ORDERABLES Fin al Result [facility] [address] [place] [phone] * HEPATITIS C AB W/REFL TO HCV RNA, QN, PCR (04/27/2021 1:10 PM EDT) HEPATITIS C ANTIBODY NON-REACT MALIK NON-REACT [facility] INDEX 0.02 <1.00 [facility] Comment: ?? HCV antibody was non-reactive. There is no laboratory ?? evidence of HCV infection. ?? In most cases, no further action is required. However, if recent HCV exposure is suspected, a test for HCV RNA (test code 72738) is suggested. ?? For additional information please refer to http://education.[employer]faq/ONE07z5 (This link is being provided for informational/ educational purposes only.) ?? 04/27/2021 1:10 PM EDT Antonia Ovalle MD HISTORICAL/NON ORDERABLE LABS Final Result [facility] [address] * Colonoscopy (01/30/2019 2:31 PM EDT) Colonoscopy Normal Normal Narrative Ashley Kern - 01/30/2019 2:31 PM EDT Recommended 5 year follow up ([facility]) Historical Provider HEALTH MAINTENANCE Edited Result - Final from Last 3 Months or Most Recently Relevant to Health Maintenance Insurance [facility] PARTIAL [facility] Address: [facility] [id number] [place] [phone] DENTAL - HSN PARTIAL (MEDICAID) Care Teams Business Operations Specialist Relationship Specialty Start Date End Date Antonia Ovalle MD [address] [place] [address] PCP - General Family Medicine 02/27/19 Joshua Black, Luisa [address] [place], [place] Pharmacist Internal Medicine 10/16/22
--- OUTSIDE RECORDS SUMMARY | 2024-08-19 09:09 | XMS_ITS | Encounter Summary ---
Author Organization [employer] Address [address] [place] [address] Care Team Providers Care Curtain Stitcher Name Role Phone Antonia Ovalle MD Primary Care Provider + Joshua Black PharmD Unavailable [phone] Encounter Details Date Type Department Care Team (Latest Contact Info) Description 01/05/2021 Abstract [facility] Dental, Provider, DDS Social History Tobacco Use Types Packs/Day Years Used Date Smoking Tobacco: Never Assessed Sex and Gender Information Value Date Recorded Sex Assigned at Male 05/08/2022 10:28 AM EDT Legal Sex Male 10:28 AM EDT Gender Identity Male 05/08/2022 10:28 AM EDT Sexual Orientation Straight 05/08/2022 10 :28 AM EDT documented as of this encounter Plan of Treatment Upcoming Encounters Date Type Department Care Team (Late st Contact Info) Description 09/15/2024 4:00 PM EDT Office Visit [facility] [address] [place] [phone] Antonia Ovalle MD [address] [place] [phone] 09/29/2024 2:30 PM EDT Office Visit [facility] [address] [place] [phone] Antonia Ovalle MD [address] [place] [phone] 02/10/2025 3:00 PM EDT Office Visit [facility] [address] [place] [address] Russell, Christa [address] [place] [address] documented as of this encounter Visit Diagnoses Not on filedocumented in this encounter Care Teams Curtain Stitcher Relationship Specialty Start Date End Date Antonia Ovalle MD [address] [place] [address] PCP - General Family Medicine 02/27/19 Joshua Black PharmD [address] [place] [address] Pharmacist Internal Medicine 10/16/22 documented as of this encounter
--- OUTSIDE RECORDS SUMMARY | 2024-08-19 09:09 | XMS_ITS | Encounter Summary ---
Author Organization [employer] Address [address] 7t [place] [address] Care Team Providers Care Filtration Supervisor Name Role Phone Antonia Ovalle MD Primary Care Provider + Joshua Black PharmD Unavailable [phone] Encounter Details Date Type Department Care Team (Latest Contact Info) Description 12/31/2018 Abstract [facility] CONVERSIONS Dental, Provider, DDS Social History [...] Description 09/15/2024 4:00 PM EDT Office Visit [facility] MEDICINE [address] [place] [address] Antonia Ovalle MD [address] [place] [address] [phone] 09/29/2024 2:30 PM EDT Office Visit [facility] MEDICINE [address] [place] [address] Antonia Ovalle MD [address] [place] [address] [phone] 02/10/2025 3:00 PM EDT Office Visit [facility] ADULT DENTAL [address] [place] [address] Bruce Wellsaris [address] [place] [address] documented as of this encounter Visit Diagnoses Not on filedocumented in this encounter Care Teams Filtration Supervisor Relationship Specialty Start Date End Date Antonia Ovalle MD [address] [place] [address] PCP - General Family Medicine 02/27/19 Joshua Black, Luisa [address] [place] [address] Pharmacist Internal Medicine 10/16/22 documented as of this encounter
--- OUTSIDE RECORDS SUMMARY | 2024-08-19 09:09 | XMS_ITS | Clinical Summary ---
Author Organization [facility] Address [address] [place] [address] Care Team Providers Care Lunch Truck Driver Name Role Phone Antonia Ovalle Primary Care Provider [phone] Allergies Active Allergy Reactions Criticality Noted Date [...] Orientation Not on file Plan of Treatment Health Maintenance Due Date Last Done Comments Cologuard 1961 Colon Cancer Screening 1961 Colonoscopy 1961 FOBT / Fit Test 1961 HIV Screening 1961 Hepatitis C Screening 1961 Sigmoidoscopy 1961 COVID-19 Vaccine ( season) 2024 05/04/2022, 11/16/2021, 06/01/2021, Additional history exists Influenza Vaccine (#1) 2024 2, 04/12/2021, 04/21/2020, Additional history exists Alcohol/Substance Use Screening 07/09/2024 Depression Screening and Follow-Up 07/09/2024 Social Drivers of Health Annual Screening 07/09/2024 DTaP,Tdap,and Td Vaccines (4 - Td or Tdap) 07/19/2030 07/19/2020, 01/17/2010, 01/17/2010 RSV Vaccine (60+ years old and patients) (1 - 1-dose 75+ series) 2036 Zoster Vaccines Completed 06/23/2020, 04/21/2020 Hepatitis B Vaccines Completed 09/06/2021, 06/01/2021, 05/04/2021 Pneumococcal Vaccine: Pediatric (0-5 Years) and At-Risk Patients (6-64 Years) Aged Out 08/30/2022, 06/29/2009 No longer eligibl e based on patient's age to complete this topic Insurance [facility] HSNO/FREE CARE [facility] Care Teams Lunch Truck Driver Relationship Specialty Start Date End Date Antonia Ovalle [address] [place] [address] PCP - General Internal Medicine 01/26/21
--- OUTSIDE RECORDS SUMMARY | 2024-08-19 09:09 | XMS_ITS | Encounter Summary ---
Author Organization [employer] Address [address] 7t [place] [address] Care Team Providers Care Manufacturing Design Engineer Name Role Phone Antonia Ovalle MD Primary Care Provider + Joshua Black PharmD Unavailable [phone] Reason for Visit * Reason Comments Med Refill Encounter Details Date Type Department Care Team (Late st Contact Info) Description 09/26/2023 Refill [facility] [address] [place], [place] [phone] Antonia Ovalle MD [address] [place], [place] [phone] Social History Tobacco Use Types Packs/Day Years Used Date Smoking Tobacco: Never Passive Smoke Exposure: Never Smokeless Tobacco: Never Alcohol Use Standard Drinks/Week Comments Never 0 (1 standard drink = 0.6 oz pur e alcohol) Depression Answer Date Recorded Patient Health Questionnaire-9 [...] Description 09/15/2024 4:00 PM EDT Office Visit [facility] [address] [place] [address] Antonia Ovalle MD [address] [place] [address] 09/29/2024 2:30 PM EDT Office Visit [facility] [address] [place] [address] Antonia Ovalle MD [address] [place] [address] 02/10/2025 3:00 PM EDT Office Visit [facility] ADULT DENTAL [address] [place] [address] Christa Wells [address] [place] [address] documented as of this encounter Goals Goal Patient Goal Type Associated Problems Recent Progress Patient-Stated? Author Blood Pressure < 140/90 Blood Pressure 126/74( 025 2:49 PM EST) Joshua Nuno, PharmD documented as of this encounter Visit Diagnoses Not on filedocumented in this encounter Additional Health Concerns Assessment Noted Time PHQ-9 Depression Total Score: 6 02/20/20 23 4:22 PM EDT documented as of this encounter Care Teams Manufacturing Design Engineer Relationship Specialty Start Date End Date Antonia Ovalle MD 230 [place] [address] PCP - General Family Medicine 02/27/19 Joshua Black, NathalieD [address] [place] [address] Pharmacist Internal Medicine 10/16/22 documented as of this encounter
--- OUTSIDE RECORDS SUMMARY | 2024-08-19 09:09 | XMS_ITS | Encounter Summary ---
Author Organization [employer] Address [address] 7t [place] [address] Care Team Providers Care Micro Lab Analyst Name Role Phone Antonia Ovalle MD Primary Care Provider + Joshua Black PharmD Unavailable [phone] Encounter Details Date Type Department Care Team (Late st Contact Info) Description 07/31/2024 Refill [facility] MEDICINE [address] [place], [place] [phone] Antonia Ovalle MD [address] [place], [place] [phone] Gastroesophageal reflux disease without esophagitis; Benign prostatic hyperplasia without lower urinary tract symptoms; Type 2 diabetes mellitus without complication, with long-term current use of insulin ([facility]) Social History Tobacco Use Types Packs/Day Years [...] Description 09/15/2024 4:00 PM EDT Office Visit [facility] MEDICINE [address] [place] [address] Antonia Ovalle MD [address] [place] [address] 09/29/2024 2:30 PM EDT Office Visit [facility] MEDICINE [address] [place] [address] Antonia Ovalle MD [address] [place] [address] 02/10/2025 3:00 PM EDT Office Visit [facility] ADULT DENTAL [address] [place] [address] Christa Wells [address] [place] [address] documented as of this encounter Goals Goal Patient Goal Type Associated Problems Recent Progress Patient-Stated? Author Blood Pressure < 140/90 Blood Pressure 126/74( 025 2:49 PM EST) No Joshua Black, PharmD documented as of this encounter Visit Diagnoses Diagnosis Gastroesophageal reflux disease without esophagitis Esophageal reflux Benign prostatic hyperplasia without lower urinary tract symptoms Type 2 diabetes mellitus without complication, with long-term current use of insulin ([facility]) documented in this encounter Additional Health Concerns Assessment Noted Time PHQ-9 Depression Total Score: 6 02/20/20 23 4:22 PM EDT documented as of this encounter Care Teams Micro Lab Analyst Relationship Specialty Start Date End Date Antonia Ovalle MD [address] [place] [address] PCP - General Family Medicine 02/27/19 Joshua Black, PharmD [address] [place] [address] Pharmacist Internal Medicine 10/16/22 documented as of this encounter
--- OUTSIDE RECORDS SUMMARY | 2024-08-19 09:09 | XMS_ITS | Encounter Summary ---
Author Organization [employer] Address [address] 7t [place] [address] Care Team Providers Care Aircraft Riveter Name Role Phone Antonia Ovalle MD Primary Care Provider + Joshua Black PharmD Unavailable [phone] Encounter Details Date Type Department Care Team (Late st Contact Info) Description 09/06/2022 Orders Only [facility] OPTOMETRY [address] [place] [address] Joao, Saray, OD [address] [place] [address] Primary open angle glaucoma (POAG) of both eyes, mild stage (Primary Dx) Social History Tobacco Use Types Packs/Day Years [...] suspected to have Coronavirus/COVID-19? No / Unsure 08/29/2022 8:32 AM EST documented as of this encounter Plan of Treatment Upcoming Encounters Date Type Department Care Team (Late st Contact Info) Description 09/15/2024 4:00 PM EDT Office Visit [facility] MEDICINE [address] [place] [address] Antonia Ovalle MD [address] [place] [address] 09/29/2024 2:30 PM EDT Office Visit [facility] MEDICINE [address] [place] [address] Antonia Ovalle MD [address] [place] [address] 02/10/2025 3:00 PM EDT Office Visit [facility] ADULT DENTAL [address] [place] [address] Christa Wells [address] [place] [address] documented as of this encounter Visit Diagnoses Diagnosis Primary open angle glaucoma (POAG) of both eyes, mild stage- Primary documented in this encounter Care Teams Aircraft Riveter Relationship Specialty Start Date End Date Antonia Ovalle MD [address] [place] [address] PCP - General Family Medicine 02/27/19 Joshua Black, NathalieD [address] [place] [address] Pharmacist Internal Medicine 10/16/22 documented as of this encounter
--- OUTSIDE RECORDS SUMMARY | 2024-08-19 09:09 | XMS_ITS | Encounter Summary ---
Author Organization [employer] Address [address] 7t [place] [address] Care Team Providers Care Security System Analyst Name Role Phone Antonia Ovalle MD Primary Care Provider + Joshua Black PharmD Unavailable [phone] Encounter Details Date Type Department Care Team ([facility] Contact Info) Description 08/09/2022 Telephone [facility] MEDICINE [address] [place] [address] [phone] Antonia Ovalle MD [address] [place], [place] [phone] Social History Tobacco Use Types Packs/Day Years Used Date Smoking Tobacco: Never Smokeless Tobacco: Never Alcohol Use Standard [...] suspected to have Coronavirus/COVID-19? No / Unsure 07/28/2022 2:21 PM EST documented as of this encounter Plan of Treatment Upcoming Encounters Date Type Department Care Team (Late Contact Info) Description 09/15/2024 4:00 PM EDT Office Visit [facility] MEDICINE [address] [place] [address] Antonia Ovalle MD [address] [place] [address] 09/29/2024 2:30 PM EDT Office Visit [facility] MEDICINE [address] [place] [address] Antonia Ovalle MD [address] [place] [address] 02/10/2025 3:00 PM EDT Office Visit [facility] ADULT DENTAL [address] [place], [place] [phone] RussellChrista [address] [place] [address] documented as of this encounter Visit Diagnoses Not on filedocumented in this encounter Care Teams Security System Analyst Relationship Specialty Start Date End Date Antonia Ovalle MD [address] [place] [address] PCP - General Family Medicine 02/27/19 Joshua Black, NathalieD [address] [place] [address] [phone] Pharmacist Internal Medicine 10/16/22 documented as of this encounter
--- OUTSIDE RECORDS SUMMARY | 2024-08-19 09:09 | XMS_ITS | Encounter Summary ---
Author Organization [email or web address] Address [address] 7t [place] [address] Care Team Providers Care Gate Shear Operator Name Role Phone Antonia Ovalle MD Primary Care Provider + Joshua Black PharmD Unavailable [phone] Reason for Visit * Reason Comments Routine Cleaning Encounter Details Date Type Department Care Team (Late st Contact Info) Description 08/11/2024 3:00 PM EST Office Visit [facility] ADULT DENTAL [address] [place], [place] [phone] Russell, Christa [address] [place], [place] [phone] Dental plaque (Primary Dx) Social History Tobacco Use Types [...] AM EDT documented as of this encounter Last Filed Vital Signs Vital Sign Reading Time Taken Comments Blood Pressure 126/74 08/11/2024 2:49 PM EST Pulse - - Temperature - - Respiratory Rate - - Oxygen Saturation - - Inhaled Oxygen Concentration - - Weight - - Height - - Body Mass Index - - documented in this encounter Progress Notes * Christa Wells - 08/11/2024 3:00 PM EST Patient ID: Isaac Bonilla is a 64 y.o. male. Time Out: Timeout Date: 08/11/24, Timeout Time: 1455 (prophy) Location: [facility] Tooth: Maxilla and Mandible Procedure: Prophylaxis Verified the above with patient, front desk assistant, and provider. Confirmed via patient's chart, intraorally and by radiographs. Quality Coordinator: not applicable Medical Hx: Vitals: Blood pressure 126/74. Medications, Med Hx reviewed with patient and updated in chart. Treatment Provided Dental procedures in this visit D1110 - PROPHYLAXIS - ADULT (Completed) Service provider: Christa Wells Billing provider: Tea Leger DDS D1420 - ORAL HYGIENE INSTRUCTIONS (Completed) Service provider: Christa Wells Billcruz provider: eTa Leger DDS D5978 - ADJUNCTIVE GENERAL SERVICES - PROFESSIONAL VISITS - CASE PRESENTATION, SUBSEQUENT TO DETAILED AND EXTENSIVE TREATMENT PLANNING (Completed) Service provider: Christa Wells Billing provider: Tea Leger DDS Instruments Used: Ultrasonic Scalers and Prophy angle Fluoride: N/A Oral Cancer Screening: No lesions Head/Neck Exam: No Lesions Calculus: Light Plaque: Light to moderate with food impactions on posterior teeth. Stain: Light Bleeding: trace Gingiva: recession, pink OH: Good Perio Chart: not due yet Oral hygiene instructions provided to patient including brushing technique and flossing. Recommendations: [place] two times daily, modified jarrell technique, Floss daily, Electric toothbrush, Soft bristle toothbrush, [place] Tongue, Anti-sensitivity toothpaste Recall Frequency: 6 mo NV: 6 months for x-rays , P. Exam ,prophy, perio chart Hygienist: Christa Wells RDH * Tea Leger DDS - 08/11/2024 3:00 PM EST I have reviewed the documentation and dental procedures made by the rendering provider, Christa Wells RDH , and approve their chart entries for this visit. Tea Leger DDS documented in this encounter Plan of Treatment Upcoming Encounters Date Type Department Care Team (Late st Contact Info) Description 09/15/2024 4:00 PM EDT Office Visit [address] [address] Antonia Ovalle MD [address] [place] [address] 09/29/2024 2:30 PM EDT Office Visit [address] [address] Antonia Ovalle MD [address] [place] [address] 02/10/2025 3:00 PM EDT Office Visit [facility] ADULT DENTAL [address] [place] [address] Christa Wells [address] [place] [address] Scheduled Orders Name Type Priority Associated Diagnoses Orde r Schedule PERIODIC ORAL EVALUATION - ESTABLISHED PATIENT Dental Routine 1 Occurren chaparro starting 08/11/2024 BITEWINGS - 4 RADIOGRAPHIC IMAGES Dental Routine 1 Occurrence s starting 08/11/2024 INTRAORAL - PERIAPICAL FIRST RADIOGRAPHIC IMAGE Dental Routine 1 Occur rences starting 08/11/2024 INTRAORAL - PERIAPICAL EACH ADDITIONAL RADIOGRAPHIC IMAGE Dental Routine 1 Occurrences starting 08/11/2024 ORAL HYGIENE INSTRUCTIONS Dental Routine 1 Occurrences starting 08/11/2024 PROPHYLAXIS - ADULT Dental Routine 1 Occ urrences starting 08/11/2024 ADJUNCTIVE GENERAL SERVICES - PROFESSIONAL VISITS - CASE PRESENTATION, SUBSEQUENT TO DETAILED AND EXTENSIVE TREATMENT PLANNING Dental Routine 1 Occurrence s starting 08/11/2024 documented as of this encounter Goals Goal Patient Goal Type Associated Problems Recent Progress Patient-Stated? Author Blood Pressure < 140/90 Blood Pressure 126/74( 025 2:49 PM EST) No Joshua Black PharmD documented as of this encounter Procedures Procedure Name Priority Date/Time Associated Diagnosis Comments PROPHYLAXIS - ADULT Routine 08/11/2024 3 :00 PM EST Dental plaque ORAL HYGIENE INSTRUCTIONS Routine 2024 3:00 PM EST Dental plaque ADJUNCTIVE GENERAL SERVICES - PROFESSIONAL VISITS - CASE PRESENTATION, SUBSEQUENT TO DETAILED AND EXTENSIVE TREATMENT PLANNING Routine 08/11/2024 3:00 PM EST Dental plaque documented in this encounter Visit Diagnoses Diagnosis Dental plaque- Primary Accretions on teeth documented in this encounter Additional Health Concerns Assessment Noted Time PHQ-9 Depression Total Score: 6 02/20/20 23 4:22 PM EDT documented as of this encounter Care Teams Gate Shear Operator Relationship Specialty Start Date End Date Antonia Ovalle MD [address] [place] [address] PCP - General Family Medicine 02/27/19 Joshua Black, PharmD [address] [place] [address] Pharmacist Internal Medicine 10/16/22 documented as of this encounter
--- OUTSIDE RECORDS SUMMARY | 2024-08-19 09:09 | XMS_ITS | Encounter Summary ---
Author Organization [employer] Address [address] [facility] [address] 7t [place] [address] Care Team Providers Care Tape Recording Machine Operator Name Role Phone Antonia Ovalle MD Primary Care Provider + Joshua Black PharmD Unavailable [phone] Reason for Visit * Reason Comments Med Refill Encounter Details Date Type Department Care Team (Late st Contact Info) Description 07/31/2024 Refill [facility] [address] [place], [place] [phone] Antonia Ovalle MD [address] [place], [place] [phone] Type 2 diabetes mellitus without complication, with long-term current use of insulin ([facility]) Social History Tobacco Use Types Packs/Day Years [...] Description 09/15/2024 4:00 PM EDT Office Visit [facility] [address] [place] [address] Antonia Ovalle MD [address] [place] [address] 09/29/2024 2:30 PM EDT Office Visit [facility] [address] [place] [address] Antonia Ovalle MD [address] [place] [address] 02/10/2025 3:00 PM EDT Office Visit [facility] ADULT DENTAL [address] [place] [address] [phone] Christa Wells [address] [place] [address] documented as of this encounter Goals Goal Patient Goal Type Associated Problems Recent Progress Patient-Stated? Author Blood Pressure < 140/90 Blood Pressure 126/74( 025 2:49 PM EST) No Joshua Black, PharmD documented as of this encounter Visit Diagnoses Diagnosis Type 2 diabetes mellitus without complication, with long-term current use of insulin ([facility]) documented in this encounter Additional Health Concerns Assessment Noted Time PHQ-9 Depression Total Score: 6 02/20/20 23 4:22 PM EDT documented as of this encounter Care Teams Tape Recording Machine Operator Relationship Specialty Start Date End Date Antonia Ovalle MD [address] [place] [address] PCP - General Family Medicine 02/27/19 Joshua Black, PharmD [address] [place] [address] Pharmacist Internal Medicine 10/16/22 documented as of this encounter
--- OUTSIDE RECORDS SUMMARY | 2024-08-19 09:09 | XMS_ITS | Encounter Summary ---
Author Organization [employer] Address [address] [facility] [address] 7t [place] [address] Care Team Providers Care Plaque Maker Name Role Phone Antonia Ovalle MD Primary Care Provider + Joshua Black PharmD Unavailable [phone] Reason for Visit * Reason Comments Med Refill Encounter Details Date Type Department Care Team (Late st Contact Info) Description 07/06/2023 Refill [facility] [address] [place], [place] [phone] Antonia Ovalle MD [address] [place], [place] [phone] Anxiety Social History Tobacco Use Types Packs/Day Years Used Date Smoking Tobacco: Never Passive Smoke Exposure: Never Smokeless Tobacco: Never Alcohol Use Standard Drinks/Week Comments Never 0 (1 standard drink = 0.6 oz pur e alcohol) Depression Answer Date Recorded Patient Health Questionnaire-9 Score 6 02/19/2023 Housing Stability Answer Date Recorded What is your housing situation today? I have katjakaran kenney 05/06/[address] you [...] Description 09/15/2024 4:00 PM EDT Office Visit [facility] MEDICINE [address] [place] [address] Antonia Ovalle MD [address] [place] [address] 09/29/2024 2:30 PM EDT Office Visit [facility] MEDICINE [address] [place] [address] Antonia Ovalle MD [address] [place] [address] 02/10/2025 3:00 PM EDT Office Visit [facility] ADULT DENTAL [address] [place] [address] Christa Wells [address] [place] [address] documented as of this encounter Goals Goal Patient Goal Type Associated Problems Recent Progress Patient-Stated? Author Blood Pressure < 140/90 Blood Pressure 126/74( 025 2:49 PM EST) Joshua Nuno, PharmD documented as of this encounter Visit Diagnoses Diagnosis Anxiety Anxiety state, unspecified documented in this encounter Additional Health Concerns Assessment Noted Time PHQ-9 Depression Total Score: 6 02/20/20 23 4:22 PM EDT documented as of this encounter Care Teams Plaque Maker Relationship Specialty Start Date End Date Antonia Ovalle MD [address] [place], [place] [phone] PCP - General Family Medicine 02/27/19 Joshua Black, NathalieD [address] [place] [address] Pharmacist Internal Medicine 10/16/22 documented as of this encounter
--- OUTSIDE RECORDS SUMMARY | 2024-08-19 09:09 | XMS_ITS | Encounter Summary ---
Author Organization [employer] Address [address] [place] [address] Care Team Providers Care Marketing Agent Name Role Phone Antonia Ovalle MD Primary Care Provider + Joshua Black PharmD Unavailable [phone] Reason for Visit * Reason Comments Med Refill Encounter Details Date Type Department Care Team (Late st Contact Info) Description 08/06/[address] [facility] [address] [place], [place] [phone] Melisa Sam DO [address] [place], [place] [phone] Anxiety Social History Tobacco Use Types Packs/Day [...] Description 09/15/2024 4:00 PM EDT Office Visit [facility] MEDICINE [address] [place] [address] Antonia Ovalle MD [address] [place] [address] 09/29/2024 2:30 PM EDT Office Visit [facility] MEDICINE [address] [place] [address] Antonia Ovalle MD [address] [place] [address] 02/10/2025 3:00 PM EDT Office Visit [facility] ADULT DENTAL [address] [place] [address] Christa Wells [address] [place] [address] documented as of this encounter Goals Goal [...] documented as of this encounter Care Teams Marketing Agent Relationship Specialty Start Date End Date Antonia Ovalle MD [address] [place], [place] [phone] PCP - General Family Medicine 02/27/19 Joshua Black, NathalieD [address] [place] [address] Pharmacist Internal Medicine 10/16/22 documented as of this encounter
[2024-08-19 10:31] LABS: Prostate Specific Antigen 3.26 ng/mL (<0.05-4.0)
== END 2024-08-19 08:47 | disposition home or self-care (01) ==
LOC: HO.LAB 08:46
PROVIDERS: PCP Internal Medicine; Visit Provider Urology
DX: Z12.5 Encounter for screening for malignant neoplasm of prostate (principal); N40.1 Benign prostatic hyperplasia with lower urinary tract symptoms; R39.12 Poor urinary stream; R39.14 Feeling of incomplete bladder emptying
CPT/HCPCS: 36415; 51798; 81003; 84153; 99212

== ENCOUNTER 2024-08-19 11:28 | Outpatient (AMB) | payer OTHER, SELFPAY ==
--- NOTE | 2024-08-19 11:41 | MHC.OFFVIS ---
Intake Visit Reasons: 1Y PSA/PVR(set) Intake Note: Patient is Present for 1Y Follow Up PSA/PVR Urology Medication: Finasteride (states that he is not on any medications from Dr Ferrera) Antibiotic Allergies: None Blood Thinners: none PVR: 0ML'S TODAY'S PVR:16ML'S Manager Talent Acquisition Required: No Allergies No Known Allergies Allergy (Verified 08/19/24 11:41) HPI Comments Details: Isaac is a pleasant male. He is seen for the following urologic conditions - lower urinary tract symptoms Yearly follow-up PVR remains low PSA 3.26 Tells me he is off medications Effective emptying 12 month follow-up Lower urinary tract symptoms - laser prostatectomy June 2020 Current visit is for - further symptom evaluation - symptoms improved Current treatment includes - finasteride Prior treatments include - 06/27 Laser ablation on prostate Prostate Symptom Score - 05/28 Moderate (9-19) Bother 4 Symptoms include - 05/28 incomplete emptying, frequency, weak stream, straining and are progressing. Prior Prostate Score unknown PSA 2.5-4. - 05/28 2.8, 8. 2.3, 02/27 2.7. 03/31 3.0, 09/02 3.6 Prostate volume 0-50gm Diagnosis imaging - 05/28 bladder ultrasound-prostate 50 g, residual 140 cc Plan will be for PVR in 12 months [facility] Medical History Diabetes Elevated cholesterol GERD (gastroesophageal reflux disease) HTN (hypertension) Lab test negative for COVID-19 virus Sleep apnea Thyroid disease Surgical History H/O colonoscopy Social History Alcohol intake: never Review of Systems Const Denies chills and Denies fever(s) Card Reports no additional complaints and Denies syncope Resp Denies cough GI Denies abdominal pain and Denies heartburn Reports as per HPI and Denies change in libido Neuro Denies syncope Psych Denies change in libido Endo Denies change in libido Physical Exam Const General: cooperative, healthy appearing, comfortable and no acute distress Orientation/consciousness: patient oriented x3 HEENT Face and sinus: Yes normal facial exam Mouth: moist mucous membranes Neck Neck: Yes normal visual inspection, Yes full ROM and Yes trachea midline Chest Chest palpation & inspection: normal inspection of the chest Resp Effort & Inspection: normal respiratory effort, able to speak in complete sentences and no respiratory distress GI Inspection: Yes normal to inspection Back/Spine/Pelvis Cervical Spine: normal cervical lordosis Thoracic/Lumbar Spine: thoracic and lumbar spine normal to inspection Skin General skin exam: no rashes or lesions noted Neuro General: patient oriented x3, gait normal, tone normal and moves all extremities Extrem General: Yes normal to inspection and Yes capillary refill normal Office Procedures Post Void Residual Post Residual Void Post Void Residual (PVR): 16 [id number]-[id number] Void Residual by ultrasound Results AMB Urinalysis, Automated UA Leukoctes 0 Betty/uL Last Edit by VASYL Mariano on 08/19/24 11:50 UA Nitrite Negative Last Edit by VASYL Mariano on 08/19/24 11:50 UA Urobilinogen 3.5 mg/dL Last Edit by VASYL Mariano on 08/19/24 11:50 UA Protein 3 mg/dL Last Edit by VASYL Mariano on 08/19/24 11:50 UA pH 5.5 Last Edit by VASYL Mariano on 08/19/24 11:50 UA Blood 10 [place]ine/uL Last Edit by VASYL Mariano on 08/19/24 11:50 UA Specific [place] 1.025 Last Edit by VASYL Mariano on 08/19/24 11:50 UA Ketone Negative Last Edit by VASYL Mariano on 08/19/24 11:50 UA Bilirubin 0 mg/dL Last Edit by VASYL Mariano on 08/19/24 11:50 UA Glucose 0 mg/dL Last Edit by VASYL Mariano on 08/19/24 11:50 Assessment & Plan Assessment & Plan (1) BPH loc w urin obs/LUTS: Code(s): N40.1 - Benign prostatic hyperplasia with lower urinary tract symptoms Category: Medical (2) Weak urinary stream: Code(s): R39.12 - Poor urinary stream Category: Medical (3) Incomplete emptying of bladder due to benign prostatic hyperplasia: Code(s): N40.1 - Benign prostatic hyperplasia with lower urinary tract symptoms; R39.14 - Feeling of incomplete bladder emptying Category: Medical Plan Twelve month follow-up check PSA and PVR Orders: Orders AMB Urinalysis Automated Today Z13.9 - Encounter for screening, unspecified Prostate Specific Antigen 364 Days N40.1 - Benign prostatic hyperplasia with lower urinary tract symptoms Medications: Discontinued trimethoprim Discontinued Reason: Doctor's Order 100 mg PO Q12H 10 days 20 tabs 0RF trimethoprim Discontinued Reason: Doctor's Order 100 mg PO BID 5 days 10 tabs 0RF N40.1 - Benign prostatic hyperplasia with lower urinary tract symptoms, R33.9 - Retention of urine, unspecified Patient Instructions: This note is constructed using voice recognition software. While every effort has been made to ensure accuracy electrical and instrument technician errors may have been included. Imaging studies, laboratory and physical exam results were discussed and reviewed in detail. No major barriers to patient understanding were identified. An opportunity to ask questions regarding the treatment plan was provided. All questions were answered. The patient expressed understanding and agreement with the above treatment plan. The patient is aware they should contact our office by phone for worsening of their current condition or the appearance of new urologic symptoms. Compliance is encouraged with any medications and followup testing that is ordered. It is a privilege to participate in the urologic care of your patient. If you have any questions or concerns regarding treatment for the above conditions, or other urologic issues, please do not hesitate to contact me. The office telephone contact is [phone]. Sincerely, Dr Jluis Ferrera MD, [facility] - Urology Compassionate Specialist Care for the Genitourinary System Coding Level of Care Code Est Pt Level 4 (78983) Diagnoses BPH loc w urin obs/LUTS N40.1 Weak urinary stream R39.12 Incomplete emptying of bladder due to benign prostatic hyperplasia N40.1; R39.14 CPT Codes Post Residual Void - PVR CPT Code: 46834-Vnor Void Residual by ultrasound ([id number])
== END 2024-08-19 12:05 | disposition home or self-care (01) ==
PROVIDERS: PCP Internal Medicine; Visit Provider Urology
DX: N40.1 Benign prostatic hyperplasia with lower urinary tract symptoms (principal); R39.12 Poor urinary stream; R39.14 Feeling of incomplete bladder emptying; Z13.9 Encounter for screening, unspecified
CPT/HCPCS: 99214

== ENCOUNTER 2024-10-04 08:15 | Outpatient (REF) | payer OTHER, SELFPAY ==
[2024-10-04 08:55] LABS: MANUAL DIFF FLAG NO
[2024-10-04 09:19] LABS: Basophils Percent Auto 0.7 % (0-2); Eosinophils Absolute Auto 0.2 X10*3/uL (0.0-0.4); Eosinophils Percent Auto 4.1 % (0-4); Hematocrit 41.8 % (42.0-52.0); Hemoglobin 13.8 g/dl (14.0-18.0); Imm Gran Abs Auto 0.03 X10*3/uL (0.00-0.03); Imm Gran Pct Auto 0.5 % (0.0-0.4); Lymphocytes Absolute Auto 2.3 X10*3/uL (1.2-4.9); Lymphocytes Percent Auto 38.6 % (20-40); Mean Corpuscular Hemoglobin 28.8 pg (27.0-33.0); Mean Corpuscular Volume 87.3 fL (80.0-98.0); Monocytes Absolute Auto 0.5 X10*3/uL (0.1-1.2); Monocytes Percent Auto 9.1 % (2-11); Neutrophils Absolute Auto 2.8 x10*3/uL (2.0-8.3); Platelet Count 234 X10*3/uL (160-400); Red Blood Count 4.79 X10*6/uL (4.60-5.80); Red Cell Distribution Width 13.9 % (11.0-16.0); White Blood Count 5.9 X10*3/uL (4.8-10.8)
[2024-10-04 10:05] LABS: HBS Num1 0.03 mIU/mL (0-7.99); HBc Num1 0.05 S/CO (0.00-0.79); HBsAGNum1 0.28 S/CO (0.00-0.99); HIV AB/AG Nonreactive (Nonreactive); Hepatitis A Antibody IgM 0.14 Index (0-0.79); Hepatitis B Core Antibody Nonreactive (Nonreactive); Hepatitis B Surface Antigen Negative (Negative); ~Hepatitis A Antibody IgM Nonreactive (Nonreactive); ~Hepatitis B Surface Antibody NONREACTIVE (Nonreactive); ~Hepatitis C Antibody Nonreactive (Nonreactive)
[2024-10-04 10:28] LABS: Alanine Aminotransferase 24 U/L (0-40); Albumin Level 4.4 g/dL (3.5-5.0); Alkaline Phosphatase 71 U/L (39-117); Anion Gap 11 (12-20); Aspartate Amino Transferase 23 U/L (5-37); Bilirubin Total 0.3 mg/dL (0.0-1.0); Blood Urea Nitrogen 15 mg/dL (9-16); Carbon Dioxide 29 mmol/L (22-29); Chloride 107 mmol/L (96-108); Cholesterol 170 mg/dL (<200); Estimated Glomerular Filt Rate > 60; Glucose Random 96 mg/dL (60-115); HDL Cholesterol 47 mg/dL (>40); LDL Cholesterol Calculated 96 mg/dL (<100); Potassium 3.8 mmol/L (3.3-5.1); Sodium 143 mmol/L (135-145); Total Protein 7.3 g/dL (6.5-8.0); Triglycerides 138 mg/dL (<150)
[2024-10-04 10:47] LABS: Reflex LDLD? No; TSH reflex Free T4 2.71 uIU/mL (0.32-4.0); Vitamin D 25-OH Total 22.8 ng/mL (>30)
[2024-10-04 12:12] LABS: Creatinine Urine 166.71 mg/dL; Microalbum/Creatinine Ratio Ur 7.7 ug/mg cr (<30)
== END 2024-10-04 08:16 | disposition home or self-care (01) ==
LOC: HO.LAB 08:15
PROVIDERS: PCP Internal Medicine; Visit Provider Internal Medicine
DX: R53.83 Other fatigue (principal); M77.31 Calcaneal spur, right foot; E11.9 Type 2 diabetes mellitus without complications
CPT/HCPCS: 36415; 80053; 80061; 82043; 82306; 82550; 82570; 84443; 85025; 86704; 86706; 86709; 86803; 87340; 87389

== ENCOUNTER 2024-10-28 09:29 | Outpatient (REF) | payer OTHER, SELFPAY ==
--- OUTSIDE RECORDS SUMMARY | 2024-10-28 10:23 | XMS_ITS | Encounter Summary ---
Author Organization [employer] Address [address] [place] [address] Care Team Providers Care Biomedical Equipment Tech Name Role Phone Antonia Ovalle MD Primary Care Provider + Joshua Black PharmD Unavailable [phone] Encounter Details Date Type Department Care Team (Late st Contact Info) Description 12/21/2022 Abstract [facility] MEDICINE [address] [place] [phone] Antonia Ovalle MD [address], [place] [phone] Social History Tobacco Use Types Packs/Day Years [...] Care Team (Late st Contact Info) Description 11/17/2024 3:15 PM EDT Office Visit [facility] MEDICINE [address] [place] [address] Antonia Ovalle MD [address] [place] [address] 02/10/2025 3:00 PM EDT Office Visit [facility] ADULT DENTAL [address] [place] [address] Christa Wells [address] [place] [address] documented as of this encounter Goals Goal Patient Goal Type Associated Problems Recent Progress Patient-Stated? Author Blood Pressure < 140/90 Blood Pressure 154/98( 025 2:11 PM EDT) No Joshua Black, PharmYvette documented as of this encounter Procedures Procedure Name Priority Date/Time Associated Diagnosis Comments COLONOSCOPY Routine 01/30/2019 2:31 PM EDT documented in this encounter Results * Hm Colonoscopy (01/30/2019 2:31 PM EDT) Colonoscopy Normal Normal Narrative Ashley Kern - 01/30/2019 2:31 PM EDT Recommended 5 year follow up ([facility] GI) us Historical Provider [facility] Edited Result - Final documented in this encounter Visit Diagnoses Not on filedocumented in this encounter Care Teams Biomedical Equipment Tech Relationship Specialty Start Date End Date Antonia Ovalle MD [address] [place] [address] PCP - General Family Medicine 02/27/19 Joshua Black, PharmD [address] [place] [phone] Pharmacist Internal Medicine 10/16/22 documented as of this encounter
--- OUTSIDE RECORDS SUMMARY | 2024-10-28 10:23 | XMS_ITS | Encounter Summary ---
Author Organization [employer] Address [address] [place] [address] Care Team Providers Care Repack Room Worker Name Role Phone Antonia Ovalle MD Primary Care Provider + Joshua Black PharmD Unavailable [phone] Encounter Details Date Type Department Care Team (Late st Contact Info) Description 09/06/2022 Orders Only [facility] OPTOMETRY [address] [place] [address] Joao, Saray, OD [address] [place] [address] Primary open angle glaucoma (POAG) of both [...] Description 11/17/2024 3:15 PM EDT Office Visit [facility] MEDICINE [address] [place] [address] Antonia Ovalle MD [address] [place] [address] 02/10/2025 3:00 PM EDT Office Visit [facility] ADULT DENTAL [address] [place] [address] Russell, Christa [address] [place] [address] documented as of this encounter Visit Diagnoses Diagnosis Primary open angle glaucoma (POAG) of both eyes, mild stage- Primary documented in this encounter Care Teams Repack Room Worker Relationship Specialty Start Date End Date Antonia Ovalle MD [address] [place] [phone] PCP - General Family Medicine 02/27/19 Joshua Black, PharmD [address] [place] [address] [phone] Pharmacist Internal Medicine 10/16/22 documented as of this encounter
--- OUTSIDE RECORDS SUMMARY | 2024-10-28 10:23 | XMS_ITS | Encounter Summary ---
Author Organization [employer] Address [address] [place] [address] Care Team Providers Care Sales Outfitter Name Role Phone Antonia Ovalle MD Primary Care Provider + Joshua Black PharmD Unavailable [phone] Reason for Visit * Reason Comments Med Refill Encounter Details Date Type Department Care Team (Late st Contact Info) Description 09/26/2023 Refill [facility] MEDICINE [address] [place], [place] [phone] Antonia Ovalle MD [address] [place], [place] [phone] Social History Tobacco Use Types Packs/Day Years [...] Description 11/17/2024 3:15 PM EDT Office Visit [facility] MEDICINE [address] [place] [address] Antonia Ovalle MD [address] [place] [phone] 02/10/2025 3:00 PM EDT Office Visit [facility] ADULT DENTAL [address] [place] [phone] Christa Wells [address] [place] [address] documented as of this encounter Goals Goal Patient Goal Type Associated Problems Recent Progress Patient-Stated? Author Blood Pressure < 140/90 Blood Pressure 154/98( 025 2:11 PM EDT) No Joshua Black, Luisa documented as of this encounter Visit Diagnoses Not on filedocumented in this encounter Additional Health Concerns Assessment Noted Time PHQ-9 Depression Total Score: 6 02/20/20 23 4:22 PM EDT documented as of this encounter Care Teams Sales Outfitter Relationship Specialty Start Date End Date Antonia Ovalle MD [address] [place] [phone] PCP - General Family Medicine 02/27/19 Joshua Black, NathalieD [address] [place] [phone] Pharmacist Internal Medicine 10/16/22 documented as of this encounter
--- OUTSIDE RECORDS SUMMARY | 2024-10-28 10:23 | XMS_ITS | Clinical Summary ---
Author Organization [employer] Address [address] [place] [address] Care Team Providers Care Preservative Filler Machine Operator Name Role Phone Antonia Ovalle MD Primary Care Provider + Joshua Black PharmD Unavailable [phone] Allergies Active Allergy Reactions Criticality Noted Date Comments Gramineae Pollens Itching 01/31/2022 Pork (Porcine) Protein Hives 07/02/2021 Shellfish Allergy 01/25/2023 Medications omega-3 (Fish Oil) 1000 MG capsule 2 capsules once daily OTC Active glucose (Glutose) 40 % gel oral gelIndications:Typ e 2 diabetes mellitus without complication, with long-term current use of insulin ([facility]) Take 15 g by mouth if needed for low blood sugar. 60 g 3 11/28/19 23 Active FREESTYLE LITE test stripIndications:T ype 2 diabetes, diet controlled (CMS/[facility]) Use 3x/d 100 strip 11 12/06/19 24 Active rosuvastatin (Crestor) 10 MG tabletIndications: Mixed hyperlipidemia TAKE 1 TABLET BY MOUTH AT BEDTIME 90 tablet 3 02/13/20 24 Active latanoprost (Xalatan) 0.005 % ophthalmic solution Administer 1 drop into both eyes at bedtime. 2.5 mL 11 05/15/20 24 025 Active losartan-hydroCHLO ROthiazide (Hyzaar) 100-25 MG tabletIndications: Primary hypertension TAKE 1 TABLET BY MOUTH EVERY MORNING 30 tablet 5 06/04/20 24 Active dilTIAZem SR (Cardizem SR) 120 MG 12 hr capsuleIndications :Primary hypertension TAKE 1 CAPSULE BY MOUTH EVERY EVENING 30 capsule 5 06/04/20 24 Active buPROPion XL (Wellbutrin XL) 300 MG 24 hr tabletIndications: Anxiety TAKE 1 TABLET BY MOUTH EVERY MORNING 30 tablet 5 06/04/20 24 Active aspirin 81 MG EC tablet Take 1 tablet (81 mg) by mouth Once per day. 90 tablet 3 06/13/20 24 Active loratadine (Claritin) 10 MG tabletIndications: Chronic rhinitis TAKE 1 TABLET BY MOUTH EVERY MORNING 90 tablet 1 07/03/20 24 Active omeprazole (PriLOSEC) [address] capsuleIndications :Gastroesophageal reflux disease without esophagitis Take 1 capsule (20 mg) by mouth before breakfast. Do not crush or chew. 90 capsule 2 08/01/19 25 Active prazosin (Minipress) 2 MG capsuleIndications :Benign prostatic hyperplasia without lower urinary tract symptoms Take 1 capsule (2 mg) by mouth at bedtime. 90 capsule 2 08/01/19 25 Active insulin glargine (Lantus SoloStar) 100 UNIT/ML penIndications:Typ e 2 diabetes mellitus without complication, with long-term current use of insulin (CMS/HCC) INJECT 25 UNITS SUBCUTANEOUSLY EVERY MORNINGINJECT 25 UNITS SUBCUTANEOUSLY EVERY MORNING 15 mL 08/01/19 25 Active carBAMazepine XR (TEGretol XR) 100 MG 12 hr tablet TAKE 1 TABLET BY MOUTH TWICE DAILY IN THE MORNING AND IN THE EVENING 60 tablet 09/01/19 25 Active levothyroxine (Synthroid, Levoxyl) 75 MCG tablet TAKE 1 TABLET BY MOUTH EVERY MORNING 30 tablet 09/01/19 25 Active metFORMIN (Glucophage) 850 MG tablet TAKE 1 TABLET BY MOUTH TWICE DAILY IN THE MORNING AND IN THE EVENING WITH FOOD 60 tablet 09/01/19 25 Active pen needle 33G x 4 mm misc Use as instructed 100 each 12 10/03/19 25 026 Active ergocalciferol (Vitamin D2) 1.25 MG (87464 UT) capsule Take 1 capsule (1.25 mg) by mouth 1 (one) time per week. 12 capsule 1 10/08/19 25 025 Active Active Problems Problem Noted Date Diagnosed Date Vitamin D deficiency 10/07/2024 Polyp of colon 10/01/2024 Overview (10/01/2024): Colonoscopy at [facility] on 2019 Assessment & Plan (10/01/2024 7:29 PM EDT): S/p colonoscopy on 2019 at [facility] Tiredness 10/01/2024 Assessment & Plan (10/01/2024 7:37 PM EDT): Advised to check fingersticks as needed symptoms. Hold on statin until next visit and check labs Make sure that he is hydrated throughout the day and take proper rest at least twice during each shift and follow-up with me next month with labs Localized gingival recession 02/07/2024 Missing teeth, acquired 02/07/2024 Calcaneal spur 01/17/2024 Assessment & Plan (10/01/2024 7:31 PM EDT): Doing well with supportive insoles Prescribed new Chooz as needed, patient will call back. Right foot pain 12/06/2023 Assessment & Plan [...] 6:13 PM EST): Nothing to be infected [employer] Insurance to use otc Vaseline ointment on affected area and cover with donut type dressing F/u in 3 weeks PRN for complete solution Encounter for preventive health examination 08/10 Assessment & Plan (10/01/2024 7:36 PM EDT): Discussed with patient re increase fresh fruit and vegetable intake. Counseled re moderate exercise as tolerated, up to 20min/d Patient feels safe at home. Eye exam: Up to date. Next one due . FU with ophthalmology at [facility] [place] for glaucoma FU. CRC screen: Overdue, will refer to GI due to hx multiple polyps. Lipids/FBS: Overdue, order labs vaccinations: All adult immunizations are up-to-date dental visit: Up to date. Next one due November 2024. Assessment & Plan (08/30/2022 12:40 PM EST): Discussed with patient re increase fresh fruit and vegetable intake. Counseled re moderate exercise as tolerated, up to 20min/d Patient feels safe at home. Eye exam: Up to date. Next one due January 2023. FU with ophthalmology at [facility] [place] for glaucoma FU. CRC screen: Up to [...] diabetes mellitus without complication Assessment & Plan (10/01/2024 7:33 PM EDT): Controlled, A1c is at goal and no further episodes hypoglycemia. Continue Lantus 25 units/D+ metformin Check fgstk 2x daily Encouraged physical activity as tolerated. FU in 3 months. Order labs Assessment & Plan (12/07/2023 2:19 PM EDT): [...] COMA, WITH LONG-TERM CURRENT USE OF INSULIN ([facility]) WRITTEN ON 11/27/2022 5:33 PM BY [...] Problem Noted Date Diagnosed Date Resolved Date Type 2 diabetes, diet controlled 10/01/2024 10/01/2024 Type 2 diabetes mellitus wit h hypoglycemia without coma, with long-term current use of insulin 01/18/2024 10/01/2024 Assessment & Plan (01/18/2024 1:28 PM EDT): Controlled. A1c is at goal. Continue on Lantus 25u/d + metformin bid Counseled re more frequent low calorie/carb meals. Check fgstk 2x daily Encouraged physical activity as tolerated. FU in 3 months. Toenail bruise, left, subsequent encounter 08/30/2022 05/28/2023 [...] Encounters Date Type Department Care Team Description 10/08/2024 Telephone [facility] [address] [place] [address] Antonia Ovalle MD Results 10/07/2024 Orders Only [facility] [address] [place] [address] [phone] Antonia Ovalle MD Vitamin D deficiency (Primary Dx) 10/02/2024 Refill [facility] [address] [place] [address] [phone] Antonia Ovalle MD 09/29/2024 2:30 PM EDT Office Visit [facility] [address] [place] [address] [phone] Antonia Ovalle MD Encounter for preventive health examination (Primary Dx); Polyp of colon, unspecified part of colon, unspecified type; Calcaneal spur of right foot; Tiredness; Type 2 diabetes mellitus without complication, with long-term current use of insulin ([facility]) 09/29/2024 Travel 09/22/2024 Patient Outreach [facility] [address], [place] [phone] Antonia Ovalle MD Pre-visit Planning ([facility] unable to reach [facility] ) 09/04/2024 Telephone [facility] [address] [place] [address] [phone] Antonia Ovalle MD Appointment Request 08/30/2024 Refill [facility] [address] [place] [address] [phone] Antonia Ovalle MD 08/11/2024 3:00 PM EST Office Visit [facility] AD[facility] [address] [place] [address] [phone] Christa Wells Dental plaque (Primary Dx) 07/31/2024 Refill [facility] [address] [place] [address] [phone] Antonia Ovalle MD Gastroesophageal reflux disease without esophagitis; Benign prostatic hyperplasia without lower urinary tract symptoms; Type 2 diabetes mellitus without complication, with long-term current use of insulin ([facility]) 07/31/2024 Refill [facility] [address] [place] [address] [phone] Antonia Ovalle MD Type 2 diabetes mellitus without complication, with long-term current use of insulin ([facility]) from Last 3 Months Immunizations Name Administration [...] Sign Reading Time Taken Comments Blood Pressure 154/98 09/29/2024 2:11 PM EDT Pulse 74 09/29/2024 2:11 PM EDT Temperature 35.9 ??C (96.7 ??F) 09/29/2024 2:11 PM ED T Respiratory Rate 16 12/06/2023 12:01 PM EDT Oxygen Saturation 100% 09/29/2024 2:11 PM EDT Inhaled Oxygen Concentration - - Weight 69.6 kg (153 lb 6 oz) 09/29/2024 2:11 PM EDT Height 157.5 cm (5' 2 ) 09/29/2024 2:11 PM EDT Body Mass Index 28.05 09/29/2024 2:11 PM EDT Plan of Treatment Upcoming Encounters Date Type Department Care Team (Late st Contact Info) Description 11/17/2024 3:15 PM EDT Office Visit [facility] [address] [place] [address] Antonia Ovalle MD [address] [place] [address] 02/10/2025 3:00 PM EDT Office Visit [facility] [address] [place] [address] Christa Wells [address] [place] [address] Health Maintenance Due Date Last Done Comments Anal Pap 1961 CT Colonography 1961 FIT DNA/Cologuard 1961 FIT 1961 FOBT 1961 Sigmoidoscopy 1961 Hepatitis A Vaccines (1 of 2 - Risk 2-dose series) 1980 Colonoscopy 01/31/2024 01/30/2019 Colorectal Cancer Screening 01/31/2024 Depression Screening 02/20/2024 02/19/2023, 02/20/20 Dental Oral Exam 09/04/2024 03/03/2024, 06/15/2022 SDOH Screening 09/23/2024 09/24/2023 Alcohol/Substance Use Screening 12/05/2024 12/06/2023 Dental X-Ray: Bitewings 02/07/2025 02/07/2024, 06/15 Dental Prophylaxis 02/09/2025 08/11/2024, 0 02/07/2024, 08/29/2022 Diabetes: Hemoglobin A1C 04/01/2025 025, 06/12/2024, 09/03/2023, Additional history exists Dental X-Ray: Full Mouth 06/16/2025 06/15/2022 Diabetes: Foot Exam 09/29/2025 09/29/2024, 09/29/2024, 09/29/2024, Additional history exists Tobacco Screening 09/29/2025 09/29/2024 Diabetes: Urine Protein Screening 10/04/2025 10/04/2024, 10/23/2023, 12/15/2021, Additional history exists Lipid Panel 10/04/2025 10/04/2024, 04/12/2023, 06/29/2022, Additional history exists Eye Exam 01/30/2026 01/31/2024, 01/07, 01/31/2024, Additional history exists DTaP/Tdap/Td Vaccines (2 - Td or Tdap) 07/19/2030 07/19/2020, 01/17/2010 Zoster Vaccines Completed 06/23/2020, 04/21/2020 Hepatitis B Vaccines Completed 09/06/2021, 06/01/2021, 05/04/2021 Pneumococcal Vaccine: 50+ Years Completed 08/30/2022, 06/29/2009 COVID-19 Vaccine Completed 05/16/2024, , 05/04/2022, Additional history exists Influenza Vaccine Completed 05/16/2024, , 05/04/2022, Additional history exists RSV Patients and Patients Aged 60 years or older Completed 06/12/2024 HIV Screening Completed 10/04/2024 Hepatitis C Screening Completed 10/04/2024, 021 HIB Vaccines Aged Out No longer eligi [...] Blood Pressure 154/98( 025 2:11 PM EDT) Joshua Nuno, Luisa Procedures Procedure Name Priority Date/Time Associated Diagnosis Comments CREATINE KINASE, TOTAL Routine 8:54 AM EDT Tiredness TSH W/REFLEX TO FT4 Routine 10/04/2024 8 :54 AM EDT Tiredness HEPATITIS PANEL, GENERAL Routine 10/04/2024 8:54 AM EDT Tiredness HIV 1/2 ANTIGEN/ANTIBODY, FOURTH GENERATION W/RFL Routine 10/04/2024 8:54 AM EDT Tiredness CBC WITH AUTO DIFFERENTIAL Routine 10/04/2024 8:54 AM EDT Tiredness LIPID PANEL WITH REFLEX TO DIRECT LDL Routine 10/04/2024 8:54 AM EDT Type 2 diabetes mellitus without complication, with long-term current use of insulin ([facility]) COMPREHENSIVE METABOLIC PANEL Routine 10/04/2024 8:54 AM EDT Type 2 diabetes mellitus without complication, with long-term current use of insulin (CMS/[facility]) VITAMIN D,25-OH,TOTAL,IA Routine 10/04/2024 8:54 AM EDT Calcaneal spur of right foot ALBUMIN, RANDOM URINE W/CREATININE Routine 10/04/2024 8:50 AM EDT Type 2 diabetes mellitus without complication, with long-term current use of insulin (CMS/[facility]) POCT GLYCATED HEMOGLOBIN, TOTAL Routine 09/29/2024 2:12 PM EDT Type 2 diabetes mellitus without complication, with long-term current use of insulin ([facility]) POCT GLUCOSE Routine 09/29/2024 2:12 PM EDT Type 2 diabetes mellitus without complication, with long-term current use of insulin ([facility]) PSA, TOTAL Routine 08/19/2024 9:11 AM EST ORAL HYGIENE INSTRUCTIONS Routine 08/11/2024 3:00 PM EST Dental plaque CASE PRESENTATION, DETAILED AND EXTENSIVE TREATMENT PLANNING Routine 08/11/2024 3:00 PM EST Dental plaque PROPHYLAXIS - ADULT Routine 08/11/2024 3 :00 PM EST Dental plaque PERIODIC ORAL EVALUATION - ESTABLISHED PATIENT Routine 03/03/2024 3:30 PM EDT BITEWINGS - 4 RADIOGRAPHIC IMAGES Routine 02/07/2024 10:00 AM EDT Dental plaque Localized gingival recession Missing teeth, acquired INTRAORAL - COMPLETE SERIES OF RADIOGRAPHIC IMAGES Routine 06/15/2022 8:00 AM EST Encounter for dental examination and cleaning with abnormal findings [facility] COLONOSCOPY Routine 01/30/2019 2:31 PM EDT from Last 3 Months or Most Recently Relevant to Health Maintenance Results * (ABNORMAL) Vitamin D, 25-Hydroxy, Total, Immunoassay (10/04/2024 8:54 AM EDT) Vitamin D 25-OH Total 22.8(L) >30 ng/mL [facility] Comment: Health Based Reference Values*< 20 ??ng/mL ??Owinecpyr34-71 ng/mL ??Insufficient> 30 ??ng/mL ??Sufficient*Rossi SHEARER. N Engl J Med. 2007;357:266-280There is no well-established upper level of normal vitamin Dlevels. Some laboratories use 50 ng/mL as an upper limit ofnormal. However, toxicity is patient-dependent and may occurat any level. Careful correlation with the patient'spresentation is necessary and, if there is concern forvitamin D toxicity, treatment should be consideredirrespective of the serum level.Care must be taken in interpreting Vitamin D results fromdifferent laboratories and methodologies. ??Published datademonstrated that results from patients undergoinghemodialysis may show a negative bias when tested withvarious automated 25-OH vitamin D assays when compared toLC- MS/MS.When testing samples from patients whose predominant form ofVitamin D is Vitamin D2, such as patients receiving VitaminD2 supplementation, results that are subtherapeutic shouldbe confirmed with another method such as LC-MS/MS. Blood 10/04/2024 8:54 AM EDT 10/04/2024 8:54 AM EDT us Antonia Ovalle MD LAB BLOOD ORDERABLES Fin al Result [facility] [address] [place] [phone] * TSH with Reflex to Free T4 (10/04/2024 8:54 AM EDT) TSH reflex Free T4 2.71 0.32 - 4.0 uIU/mL [facility] Blood 10/04/2024 8:54 AM EDT 10/04/2024 8:54 AM EDT Antonia Ovalle MD LAB BLOOD ORDERABLES Fin al Result Performing Organization Address [facility] Co de Phone Number [facility] [address] [place] [address] [phone] * Lipid Panel with Reflex to Direct LDL (10/04/2024 8:54 AM EDT) Triglycerides 138 <150 mg/dL [facility] Comment:Desirable Triglyceri de: less than 150 mg/dLBorderline High Triglyceride 150-199 mg/dLHigh Triglyceride: 200-499 mg/dLVery High Triglyceride: greater than or equal to 5OO mg/dL Cholesterol 170 <200 mg/dL [facility] Comment:Desirable Cholestero l: less than 200 mg/dLBorderline High Cholesterol: 200-239 mg/dLHigh Cholesterol: greater than 239 mg/dL LDL Cholesterol Calculated 96 <100 mg/dL [facility] Comment:Desirable LDL: less than 100 mg/dLNear Optimal/Above Optimal LDL: 110- 129 mg/dLBorderline High LDL: 130-159 mg/dLHigh LDL: 160-189 mg/dLVery High LDL: greater than or equal to 190 mg/dL HDL Cholesterol 47 >40 mg/dL [facility] Comment:Desirable HDL: great er than 40 mg/dL Note: This HDL assay may give artificially low results in patients with liver disease. Blood 10/04/2024 8:54 AM EDT 10/04/2024 8:54 AM EDT Antonia Ovalle MD LAB BLOOD ORDERABLES Fin al Result Performing Organization Address City/[facility]/ZIP Co de Phone Number [facility] [address] [place] [address] [phone] * Hepatitis Panel, General (10/04/2024 8:54 AM EDT) Hepatitis A IgM Nonreactive Nonreactive [facility] Comment:IgM antibodies to NOYOLA V not detected; does not exclude earlyacute or recovered HAV infection. ~Hepatitis B Surface Antibody NONREACTIVE Nonreactive [facility] Comment:Nonreactive: < 8.00 mIU/mL Hepatitis B Core Antibody Nonreactive Nonreactive [facility] Hepatitis C Antibody Nonreactive Nonreactive [facility] Comment:Antibodies to HCV no t detected; does not exclude early acuteHCV infection. Hepatitis B Surface Ag Negative Negative [facility] Blood 10/04/2024 8:54 AM EDT 10/04/2024 8:54 AM EDT us Antonia Ovalle MD LAB BLOOD ORDERABLES Fin al Result [facility] [address] [place] [phone] * (ABNORMAL) CBC auto differential (10/04/2024 8:54 AM EDT) Pathologist [facility] White Blood Count 5.9 4.8 - 10.8 X10*3/uL [facility] Red Blood Count 4.79 4.60 - 5.80 X10*6/uL [facility] Hemoglobin 13.8(L) 14.0 - 18.0 g/dl [facility] Hematocrit 41.8(L) 42.0 - 52.0 % [facility] Mean Corpuscular Volume 87.3 80.0 - 98.0 fL [facility] Mean Corpuscular Hemoglobin 28.8 27.0 - 33.0 pg [facility] Mean Corpuscular HGB Conc 33.0 31.0 - 36.0 g/dl [facility] Red Cell Distribution Width 13.9 11.0 - 16.0 % [facility] Platelet Count 234 160 - 400 X10*3/uL [facility] Mean Platelet Volume 9.0(L) 9.4 - 12.4 fL [facility] Neutrophils Percent Auto 47.0 45 - 73 % [facility] Imm Gran Pct Auto 0.5(H) 0.0 - 0.4 % [facility] Lymphocytes Percent Auto 38.6 20 - 40 % [facility] Monocytes Percent Auto 9.1 2 - 11 % [facility] Eosinophils Percent Auto 4.1(H) 0 - 4 % [facility] Basophils Percent Auto 0.7 0 - 2 % [facility] NRBC Pct Auto 0.0 0.0 - 0.2 /100WBC [facility] Neutrophils Absolute Auto 2.8 2.0 - 8.3 x10*3/uL [facility] Imm Gran Abs Auto 0.03 0.00 - 0.03 X10*3/uL [facility] Lymphocytes Absolute Auto 2.3 1.2 - 4.9 X10*3/uL [facility] Monocytes Absolute Auto 0.5 0.1 - 1.2 X10*3/uL [facility] Eosinophils Absolute Auto 0.2 0.0 - 0.4 X10*3/uL [facility] Basophils Absolute Auto 0.0 0.0 - 0.2 X10*3/uL [facility] NRBC Abs Auto 0.000 0.0 - 0.012 X10*3/uL [facility] Blood Venous blood specimen / Unknown 10/04/2024 8:54 AM EDT 10/04/2024 8:54 AM EDT us Antonia Ovalle MD LAB BLOOD ORDERABLES Fin al Result [facility] [address] [place] [phone] [phone] * HIV-1/2 Antigen and Antibodies, Fourth Generation, with Reflexes (10/04/2024 8:54 AM EDT) HIV AB/AG Nonreactive Nonreactive [facility] Comment:HIV-1 p24 Ag and/or HIV-1/HIV-2 Ab not detected.A test result that is nonreactive does not exclude thepossibility of exposure to or infection with HIV-1 and/orHIV-2. Nonreactive results in this assay for individualswith prior exposure to HIV-1 and/or HIV-2 may be due toantigen and antibody levels that are below the limit ofdetection of this assay.The [employer] Al[employer] HIV Ag/Ab Combo assay result andsupplemental assay results should be interpreted inconjunction with the patient's clinical presentation,history and other laboratory results. If the results areinconsistent with clinical evidence, additional testing issuggested to confirm the result. Blood Venous blood specimen / Unknown 10/04/2024 8:54 AM EDT 10/04/2024 8:54 AM EDT us Antonia Ovalle MD LAB BLOOD ORDERABLES Fin al Result Performing Organization Address [facility] Co de Phone Number [facility] [address] [place] [address] [phone] * (ABNORMAL) Creatine Kinase, Total (10/04/2024 8:54 AM EDT) Pathologist [facility] Creatine Kinase Total 295(H) 38 - 174 U/L [facility] Blood Venous blood specimen / Unknown 10/04/2024 8:54 AM EDT 10/04/2024 8:54 AM EDT us Antonia Ovalle MD LAB BLOOD ORDERABLES Fin al Result Performing Organization Address [facility] Co de Phone Number [facility] [address] [place] [phone] * (ABNORMAL) Comprehensive Metabolic Panel (10/04/2024 8:54 AM EDT) Pathologist [facility] Sodium 143 135 - 145 mmol/L [facility] Potassium 3.8 3.3 - 5.1 mmol/L [facility] Chloride 107 96 - 108 mmol/L [facility] Carbon Dioxide 29 22 - 29 mmol/L [facility] Anion Gap 11(L) 12 - 20 [facility] Urea Nitrogen (BUN) 15 9 - 16 mg/dL [facility] Creatinine, Serum 0.79 0.5 - 1.4 mg/dL [facility] Estimated Glomerular Filt Rate >60 [facility] Comment:Chronic Kidney Disea se: Estimated GFR < 60 mL/min/[id number] Kidney Disease: Estimated GFR < 15 mL/min/1.73m2 Glucose 96 60 - 115 mg/dL [facility] Calcium 9.0 8.4 - 10.2 mg/dL [facility] Bilirubin, Total 0.3 0.0 - 1.0 mg/dL [facility] Aspartate Amino Transferase 23 5 - 37 U/L [facility] Alanine Aminotransferase 24 0 - 40 U/L [facility] Total Protein 7.3 6.5 - 8.0 g/dL [facility] Albumin Level 4.4 3.5 - 5.0 g/dL [facility] Alkaline Phosphatase 71 39 - 117 U/L [facility] Blood Venous blood specimen / Unknown 10/04/2024 8:54 AM EDT 10/04/2024 8:54 AM EDT us Antonia Ovalle MD LAB BLOOD ORDERABLES Fin al Result [facility] [address] [place] [phone] * Albumin, Random Urine W/Creatinine (10/04/2024 8:50 AM EDT) Creatinine, Urine 166.71 mg/dL [facility] Microalbumin Urine 13.0 mg/L [facility] Microalbum Creatinine Ratio Ur 7.7 <30 ug/mg cr [facility] Comment:Albumin/Creatinine R atio Reference Ranges: Normal: < 30 ug/mg creatinine Microalbuminuria: 30 - 300 ug/mg creatinineClinical Albuminuria: > 300 ug/mg creatinine Urine (Urine, Random) 10/04/2024 8:50 AM EDT 10/04/2024 11:03 AM EDT Antonia Ovalle MD LAB URINE ORDERABLES Fin al Result [facility] [address] [place] [phone] * (ABNORMAL) POCT HGB A1C (09/29/2024 2:12 PM EDT) Hemoglobin A1C 6.6(A) 4.0 - 6.0 % QC Media Lot # [id number] Lot# Expiration Date ,026 Blood 09/29/2024 2:1 2 PM EDT Antonia Ovalle MD POINT OF CARE TEST ENTER /EDIT ORDERABLES Final Result * POCT Glucose (09/29/2024 2:12 PM EDT) Glucose Blood, POC 110 60 - 200 mg/dL Comment:[id number] QC Media Lot # [id number] Lot# Expiration Date 101,425 Blood Capillary blood specimen / Unknown 09/29/2024 2:12 PM EDT Antonia Ovalle MD POINT OF CARE TEST ENTER /EDIT ORDERABLES Final Result * PSA,Total (08/19/2024 9:11 AM EST) Prostate Specific Antigen 3.26 <0.05 - 4.0 ng/mL [facility] Comment:PSA methodology: Abb ellie Alikeyanna i ChemiluminescentMicroparticle Immunoassay (CMIA) 08/19/2024 9:11 AM EST 08/19/2024 9:11 AM EST Generic External Data Provider LAB BLOOD ORDERAB LES Final Result [facility] [address] [place] [address] [phone] * Hm Colonoscopy (01/30/2019 2:31 PM EDT) Colonoscopy Normal Normal Narrative Ashley Kern - 01/30/2019 2:31 PM EDT Recommended 5 year follow up ([facility]) us Historical Provider HEALTH MAINTENANCE Edited Result - Final from Last 3 Months or Most Recently Relevant to Health Maintenance Insurance [facility] [facility] Address: [facility] [address] [place] [address] DENTAL - HSN PARTIAL (MEDICAID) Care Teams Preservative Filler Machine Operator Relationship Specialty Start Date End Date Antonia Ovalle MD [address] [place] [address] PCP - General Family Medicine 02/27/19 Joshua Black, Luisa [address] [place] [address] Pharmacist Internal Medicine 10/16/22
--- OUTSIDE RECORDS SUMMARY | 2024-10-28 10:23 | XMS_ITS | Encounter Summary ---
Author Organization [employer] Address [address] [facility] [address] 7t [place] [address] Care Team Providers Care Grain Sacker Name Role Phone Antonia Ovalle MD Primary Care Provider + Joshua Black PharmD Unavailable [phone] Encounter Details Date Type Department Care Team (Latest Contact Info) Description 12/31/2018 Abstract [facility] CONVERSIONS Dental, Provider, DDS Social History [...] Description 11/17/2024 3:15 PM EDT Office Visit [facility] MEDICINE [address] [place] [address] Antonia Ovalle MD [address] [place] [address] 02/10/2025 3:00 PM EDT Office Visit [facility] ADULT DENTAL [address] [place] [address] Christa Wells [address] [place] [address] documented as of this encounter Visit Diagnoses Not on filedocumented in this encounter Care Teams Grain Sacker Relationship Specialty Start Date End Date Antonia Ovalle MD [address] [place], [place] [phone] PCP - General Family Medicine 02/27/19 Joshua Black, NathalieD [address] [place], [place] [phone] Pharmacist Internal Medicine 10/16/22 documented as of this encounter
--- OUTSIDE RECORDS SUMMARY | 2024-10-28 10:23 | XMS_ITS | Encounter Summary ---
Author Organization [employer] Address [address] [facility] 7t [place] [address] Care Team Providers Care Livestock Showman Name Role Phone Antonia Ovalle MD Primary Care Provider + Joshua Black PharmD Unavailable [phone] Encounter Details Date Type Department Care Team (Latest Contact Info) Description 01/05/2021 Abstract [facility] CONVERSIONS Dental, Provider, DDS Social History [...] Description 11/17/2024 3:15 PM EDT Office Visit [facility] MEDICINE [address] [place] [address] Antonia Ovalle MD [address] [place] [address] 02/10/2025 3:00 PM EDT Office Visit [facility] ADULT DENTAL [address] [place] [address] Christa Wells [address] [place] [address] documented as of this encounter Visit Diagnoses Not on filedocumented in this encounter Care Teams Livestock Showman Relationship Specialty Start Date End Date Antonia Ovalle MD [address] [place], [place] [phone] PCP - General Family Medicine 02/27/19 Joshua Black, NathalieD [address] [place], [place] [phone] Pharmacist Internal Medicine 10/16/22 documented as of this encounter
--- OUTSIDE RECORDS SUMMARY | 2024-10-28 10:23 | XMS_ITS | Referral Summary ---
Author Organization [facility] Address [address] [place] [address] Care Team Providers Care Pouncing Machine Operator Name Role Phone Antonia Ovalle Primary Care Provider [phone] Allergies Active Allergy Reactions Criticality Noted Date [...] Plan of Treatment Not on file Insurance [facility]/FREE CARE [place] [address] Care Teams Pouncing Machine Operator Relationship Specialty Start Date End Date Antonia Ovalle [address] [place] [address] PCP - General Internal Medicine 01/26/21
--- OUTSIDE RECORDS SUMMARY | 2024-10-28 10:23 | XMS_ITS | Encounter Summary ---
Author Organization [employer] Address [address] [facility] [address] 7t [place] [address] Care Team Providers Care Telegraph Office Telephone Clerk Name Role Phone Antonia Ovalle MD Primary Care Provider + Joshua Black PharmD Unavailable [phone] Encounter Details Date Type Department Care Team ([facility] Contact Info) Description 08/09/2022 Telephone [facility] MEDICINE [address] [place] [address] [phone] Antonia Ovalle MD [address] [place], [place] [phone] Social History Tobacco Use Types Packs/Day Years [...] Department Care Team (Late Contact Info) Description 11/17/2024 3:15 PM EDT Office Visit [facility] MEDICINE [address] [place] [address] Antonia Ovalle MD [address] [place] [address] 02/10/2025 3:00 PM EDT Office Visit [facility] ADULT DENTAL [address] [place] [address] Russell Christa [address] [place] [address] documented as of this encounter Visit Diagnoses Not on filedocumented in this encounter Care Teams Telegraph Office Telephone Clerk Relationship Specialty Start Date End Date Antonia Ovalle MD [address] [place] [address] PCP - General Family Medicine 02/27/19 Joshua Black, NathalieD [address] [place], [place] [phone] Pharmacist Internal Medicine 10/16/22 documented as of this encounter
--- OUTSIDE RECORDS SUMMARY | 2024-10-28 10:23 | XMS_ITS | Clinical Summary ---
Author Organization [facility] Address [address] [place] [address] Care Team Providers Care Power Cleaner Operator Name Role Phone Antonia Ovalle Primary Care Provider [phone] Allergies Active Allergy Reactions Criticality Noted Date [...] C Screening 1960 Sigmoidoscopy 1960 COVID-19 Vaccine (2023-2 5 season) 2024 05/04/2022, 11/16/2021, 06/01/2021, Additional history exists Alcohol/Substance Use Screening 07/09/2024 Depression Screening and Follow-Up 07/09/2024 Social Drivers of Health Angela ual Screening 07/09/2024 Influenza Vaccine (Season Ended) 2025 05/04/2022, 04/12/2021, 04/21/2020, Additional history exists DTaP,Tdap,and Td Vaccines (4 - Td or Tdap) 07/19/2030 07/19/2020, 01/17/2010, 01/17/2010 RSV Vaccine (60+ years old a nd patients) (1 - 1-dose 75+ series) 2036 Zoster Vaccines Completed 06/23/2020, 04/21/2020 Hepatitis B Vaccines Completed 09/06/2021, 06/01/2021, 05/04/2021 Pneumococcal Vaccine: 50+ Years Completed 3, 06/29/2009 Insurance [facility]/FREE [place] [address] Care Teams Power Cleaner Operator Relationship Specialty Start Date End Date Antonia Ovalle [address] [place] [address] PCP - General Internal Medicine 01/26/21
--- OUTSIDE RECORDS SUMMARY | 2024-10-28 10:24 | XMS_ITS | Encounter Summary ---
Author Organization [employer] Address [address] [facility] [address] 7t [place] [address] Care Team Providers Care Census Taker Name Role Phone Antonia Ovalle MD Primary Care Provider + Joshua Black PharmD Unavailable [phone] Reason for Visit * Reason Comments Med Refill Encounter Details Date Type Department Care Team (Late st Contact Info) Description 08/06/2023 Refill [facility] 230 [place], [place] [phone] Melisa Sam DO 230 [place], [place] [phone] Anxiety Social History Tobacco Use Types Packs/Day [...] Description 11/17/2024 3:15 PM EDT Office Visit [facility] MEDICINE [address] [place] [address] Antonia Ovalle MD [address] [place] [address] 02/10/2025 3:00 PM EDT Office Visit [facility] ADULT DENTAL [address] [place] [address] Christa Wells 230 [place] [address] documented as of this encounter Goals Goal [...] documented as of this encounter Care Teams Census Taker Relationship Specialty Start Date End Date Antonia Ovalle MD [address] [place] [address] PCP - General Family Medicine 02/27/19 Joshua Black, PharmD [facility] [place] [address] Pharmacist Internal Medicine 10/16/22 documented as of this encounter
--- OUTSIDE RECORDS SUMMARY | 2024-10-28 10:24 | XMS_ITS | Encounter Summary ---
Author Organization [employer] Address [address] [facility] [address] 7t [place] [address] Care Team Providers Care Wheel And Caster Repairer Name Role Phone Antonia Ovalle MD Primary Care Provider + Joshua Black PharmD Unavailable [phone] Reason for Visit * Reason Comments Med Refill Encounter Details Date Type Department Care Team (Late st Contact Info) Description 07/06/2023 Refill [facility]BILE [facility]INE CLINIC 230 [place], [place] [phone] Antonia Ovalle MD 230 [place], [place] [phone] Anxiety Social History Tobacco Use Types Packs/Day [...] Description 11/17/2024 3:15 PM EDT Office Visit [facility] MEDICINE [address] [place] [address] Antonia Ovalle MD [address] [place] [address] 02/10/2025 3:00 PM EDT Office Visit [facility] ADULT DENTAL [address] [place] [address] Christa Wells 230 [place] [address] documented as of this encounter Goals Goal [...] documented as of this encounter Care Teams Wheel And Caster Repairer Relationship Specialty Start Date End Date Antonia Ovalle MD [address] [place] [address] PCP - General Family Medicine 02/27/19 Joshua Black, PharmD [facility][note 2] [facility] [place] [address] Pharmacist Internal Medicine 10/16/22 documented as of this encounter
[2024-10-31 00:33] LABS: TS Negative Control Passed; TS Panel A 2; TS Panel B 0; TS Positive Control Passed; TSpotTB Negative (Negative)
== END 2024-10-28 09:30 | disposition home or self-care (01) ==
LOC: HO.HHCL 09:29
PROVIDERS: Visit Provider Internal Medicine
DX: Z00.00 Encounter for general adult medical examination without abnormal findings (principal)
CPT/HCPCS: 36415; 86481

== ENCOUNTER 2024-11-17 14:49 | Outpatient (REF) | payer OTHER, SELFPAY ==
--- OUTSIDE RECORDS SUMMARY | 2024-11-17 14:52 | XMS_ITS | Clinical Summary ---
Author Organization [facility] Address [address] [place] [address] Care Team Providers Care Insole Tacker Name Role Phone Antonia Ovalle Primary Care Provider [phone] Allergies Active Allergy Reactions Criticality Noted Date [...] Vaccine: 50+ Years Completed 3, 06/29/2009 Insurance [facility] HS[facility]/[place] [address] [place] [address] Care Teams Insole Tacker Relationship Specialty Start Date End Date Antonia Ovalle [address] [place] [address] PCP - General Internal Medicine 01/26/21
--- OUTSIDE RECORDS SUMMARY | 2024-11-17 14:52 | XMS_ITS | Encounter Summary ---
Author Organization [employer] Address [address] [facility] [address] 7t [place] [address] Care Team Providers Care Bone Process Operator Name Role Phone Antonia Ovalle MD Primary Care Provider + Joshua Balck PharmD Unavailable [phone] Reason for Visit * Reason Onset Date Comments chart prep 11/14/2024 Encounter Details Date Type Department Care Team (Late st Contact Info) Description 11/14/2024 Telephone [facility] MEDICINE 230 [place], [place] [phone] Antonia Ovalle MD [address] [place], [place] [phone] chart prep Social History Tobacco Use Types Packs/Day Years [...] housing situation today? I have katja kenney 11/11/[address] you li ve. Do you have problems with any of the following? None of the above 11/11/2024 Food Insecurity Answer Date Recorded Within the past 12 months, y ou worried that your food would run out before you got money to buy more: Never True 11/11/2024 Within the past 12 months,th e food you bought just didn't last and you didn't have enough money to get more: Never True 12/2024 Transportation Answer Date Recorded In the past 12 months, has l ack of transportation kept you from medical appts, meetings, work or from getting things needed for daily living? No 11/11/2024 Utilities Answer Date Recorded In the past 12 months, has t he iPierian, gas, oil or water company threatened to shut off services in your home? No 11/11/2024 Depression Answer Date Recorded Patient Health Questionnaire-2 Score 0 02/19/2023 Internet Access Answer Date Recorded Internet Access Q1 Yes 11/11/2024 Internet Access Q2 Not on file 11/11/2024 Sex and Gender Information Value Date Recorded Sex Assigned at Male 05/08/2022 10:28 AM EDT Legal Sex Male 10:28 AM EDT Gender Identity Male 05/08/2022 10:28 AM EDT Sexual Orientation Straight 05/08/2022 10 :28 AM EDT documented as of this encounter Miscellaneous Notes * Telephone Encounter - Desire Monroy [place] - 11/14/2024 3:50 PM EDT Chart Prep Labs: done Images: done Referrals: appointment pending Vaccines due: Hep A Screenings: colonoscopy Overdue care gaps: Glucose and PHQ-9 documented in this encounter Plan of Treatment Upcoming Encounters Date Type Department Care Team (Late st Contact Info) Description 11/17/2024 3:15 PM EDT Office Visit [facility] MEDICINE [address] [place] [address] Antonia Ovalle MD [address] [place] [address] Type 2 diabetes mellitus without complication, with long-term current use of insulin (CMS/HCC) (Primary Dx); 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); Myalgia 02/10/2025 3:00 PM EDT Office Visit [facility] ADULT DENTAL 230 [place] [address] Christa Wells 230 [place] [address] documented as of this encounter Goals Goal Patient Goal Type Associated Problems Recent Progress Patient-Stated? Author Blood Pressure < 140/90 Blood Pressure 120/82( 025 2:38 PM EDT) No Joshua Black, PharmD documented as of this encounter Visit Diagnoses Not on filedocumented in this encounter Additional Health Concerns Assessment Noted Time PHQ-9 Depression Total Score: 6 02/20/20 23 4:22 PM EDT documented as of this encounter Care Teams Bone Process Operator Relationship Specialty Start Date End Date Antonia Ovalle MD [address] [place] [address] PCP - General Family Medicine 02/27/19 Joshua Black, PharmD [address] [place] [address] Pharmacist Internal Medicine 10/16/22 documented as of this encounter
--- OUTSIDE RECORDS SUMMARY | 2024-11-17 14:52 | XMS_ITS | Referral Summary ---
Author Organization [facility] Address [address] [place] [address] Care Team Providers Care Diesel Fitter Mechanic Name Role Phone Antonia Ovalle Primary Care Provider [phone] Allergies Active Allergy Reactions Criticality Noted Date [...] Plan of Treatment Not on file Insurance [facility]/[place] [address] [place] [address] Care Teams Diesel Fitter Mechanic Relationship Specialty Start Date End Date Antonia Ovalle [address] [place] [address] PCP - General Internal Medicine 01/26/21
--- OUTSIDE RECORDS SUMMARY | 2024-11-17 14:52 | XMS_ITS | Encounter Summary ---
Author Organization [employer] Address [address] [facility] [address] 7t [place] [address] Care Team Providers Care Blow Molder Name Role Phone Antonia Ovalle MD Primary Care Provider + Joshua Black PharmD Unavailable [phone] Encounter Details Date Type Department Care Team (Latest Contact Info) Description 11/17/2024 Travel Social History Tobacco Use Types Packs/Day Years [...] Description 11/17/2024 3:15 PM EDT Office Visit [facility] MEDICINE 230 [place] [address] Antonia Ovalle MD 230 [place] [address] Type 2 diabetes mellitus without complication, with long-term current use of insulin ([facility]) (Primary Dx); Polyneuropathy due to type 2 diabetes mellitus ([facility]); Myalgia 02/10/2025 3:00 PM EDT Office Visit [facility] ADULT DENTAL [address] [place] [address] Christa Wells 230 [place] [address] documented as of this encounter Goals Goal Patient Goal Type Associated Problems Recent Progress Patient-Stated? Author Blood Pressure < 140/90 Blood Pressure 120/82( 025 2:38 PM EDT) No Joshua Black, NathalieD documented as of this encounter Visit Diagnoses Not on filedocumented in this encounter Additional Health Concerns Assessment Noted Time PHQ-9 Depression Total Score: 6 02/20/20 23 4:22 PM EDT documented as of this encounter Care Teams Blow Molder Relationship Specialty Start Date End Date Antonia Ovalle MD [address] [place] [address] PCP - General Family Medicine 02/27/19 Joshua Black, NathalieD [address] [place] [address] Pharmacist Internal Medicine 10/16/22 documented as of this encounter
--- OUTSIDE RECORDS SUMMARY | 2024-11-17 14:52 | XMS_ITS | Encounter Summary ---
Author Organization [employer] Address [address] [facility] [address] 7t [place] [address] Care Team Providers Care Coil Placer Name Role Phone Antonia Ovalle MD Primary Care Provider + Joshua Black PharmD Unavailable [phone] Reason for Visit * Reason Comments Diabetes Encounter Details Date Type Department Care Team (Late st Contact Info) Description 11/17/2024 3:15 PM EDT Office Visit [facility] MEDICINE 230 [place], [place] [phone] Antonia Ovalle MD 230 [place], [place] [phone] Type 2 diabetes mellitus without complication, with long-term current use of insulin (CMS/HCC) (Primary Dx); 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); Myalgia Social History Tobacco Use Types Packs/Day Years [...] Sign Reading Time Taken Comments Blood Pressure 120/82 11/17/2024 2:38 PM EDT Pulse 79 11/17/2024 2:24 PM EDT Temperature 36.3 ??C (97.4 ??F) 11/17/2024 2:24 PM ED T Respiratory Rate - - Oxygen Saturation 98% 11/17/2024 2:24 PM EDT Inhaled Oxygen Concentration - - Weight 70.9 kg (156 lb 6 oz) 11/17/2024 2:24 PM EDT Height 157.5 cm (5' 2 ) 11/17/2024 2:24 PM EDT Body Mass Index 28.6 11/17/2024 2:24 PM EDT documented in this encounter Plan of Treatment Upcoming Encounters Date Type Department Care Team (Late st Contact Info) Description 02/10/2025 3:00 PM EDT Office Visit [facility] ADULT DENTAL 230 [place] [address] Christa Wells 230 [facility] [place] [address] Scheduled Orders Name Type Priority Associated Diagnoses Orde r Schedule Creatine Kinase, Total Lab Routine Myalgia Expected: 11/17/2024, Expires: 11/17/2025 Aldolase Lab Routine Myalgia Expected: 11/17/2024 (Approximate), Expires: 11/17/2025 documented as of this encounter Goals Goal Patient Goal Type Associated Problems Recent Progress Patient-Stated? Author Blood Pressure < 140/90 Blood Pressure 120/82( 025 2:38 PM EDT) No Joshua Black, PharmD documented as of this encounter Procedures Procedure Name Priority Date/Time Associated Diagnosis Comments POCT GLUCOSE Routine 11/17/2024 2:30 PM EDT Type 2 diabetes mellitus without complication, with long-term current use of insulin ([facility]) documented in this encounter Results * POCT Glucose (11/17/2024 2:30 PM EDT) [facility] Glucose Blood, POC 90 60 - 200 mg/dL QC Media Lot # [id number] Lot# Expiration Date 101,526 Blood Capillary blood specimen / Unknown 11/17/2024 2:30 PM EDT Antonia Ovalle MD POINT OF CARE TEST ENTER /EDIT ORDERABLES Final Result documented in this encounter Visit Diagnoses Diagnosis Type 2 diabetes mellitus without complication, with long-term current use of insulin ([facility])- Primary 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/[facility]) Myalgia Unspecified myalgia and myositis documented in this encounter Additional Health Concerns Assessment Noted Time PHQ-9 Depression Total Score: 6 02/20/20 23 4:22 PM EDT documented as of this encounter Care Teams Coil Placer Relationship Specialty Start Date End Date Antonia Ovalle MD [address] [place] [address] PCP - General Family Medicine 02/27/19 Joshua Black, PharmD [address] [place] [address] Pharmacist Internal Medicine 10/16/22 documented as of this encounter
--- OUTSIDE RECORDS SUMMARY | 2024-11-17 14:53 | XMS_ITS | Encounter Summary ---
Author Organization [employer] Address [address] [facility] [address] 7t [place] [address] Care Team Providers Care Pool Table Operator Name Role Phone Antonia Ovalle MD Primary Care Provider + Joshua Black PharmD Unavailable [phone] Reason for Visit * Reason Comments Med Refill Encounter Details Date Type Department Care Team (Late st Contact Info) Description 07/06/2023 Refill [facility] 230 [place], [place] [phone] Antonia Ovalle MD 230 [place], [place] [phone] Anxiety Social History Tobacco Use Types Packs/Day [...] Description 11/17/2024 3:15 PM EDT Office Visit [facility] MEDICINE [address] [place] [address] Antonia Ovalle MD [address] [place] [address] Type 2 diabetes mellitus without complication, with long-term current use of insulin (CMS/HCC) (Primary Dx); 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 Author Blood Pressure < 140/90 Blood Pressure 120/82( 025 2:38 PM EDT) No Joshua Black, Luisa documented as of this encounter Visit Diagnoses Diagnosis Anxiety Anxiety state, unspecified Type 2 diabetes mellitus without complication, with long-term current use of insulin (CMS/HCC)- Primary 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) Myalgia Unspecified myalgia and myositis documented in this encounter Additional Health Concerns Assessment Noted Time PHQ-9 Depression Total Score: 6 02/20/20 23 4:22 PM EDT documented as of this encounter Care Teams Pool Table Operator Relationship Specialty Start Date End Date Antonia Ovalle MD 230 [place] [address] PCP - General Family Medicine 02/27/19 Joshua Black, Luisa [address] [place] [address] Pharmacist Internal Medicine 10/16/22 documented as of this encounter
--- OUTSIDE RECORDS SUMMARY | 2024-11-17 14:53 | XMS_ITS | Encounter Summary ---
Author Organization [employer] Address [address] [facility] [address] 7t [place] [address] Care Team Providers Care Sample Cutter Name Role Phone Antonia Ovalle MD Primary Care Provider + Joshua Black PharmD Unavailable [phone] Encounter Details Date Type Department Care Team ([facility] Contact Info) Description 08/09/2022 Telephone [facility] MEDICINE [address] [place] [address] [phone] Antonia Ovalle MD [address] [place] [address] [phone] Social History Tobacco Use Types Packs/Day Years [...] Upcoming Encounters Date Type Department Care Team ([facility] Contact Info) Description 11/17/2024 3:15 PM EDT Office Visit [facility] MEDICINE [address] [place] [address] [phone] Antonia Ovalle MD 230 [place] [address] Type 2 diabetes mellitus without complication, with long-term current use of insulin (CMS/[facility]) (Primary Dx); 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
--- OUTSIDE RECORDS SUMMARY | 2024-11-17 14:53 | XMS_ITS | Clinical Summary ---
Author Organization [employer] Address [address] [place] [address] Care Team Providers Care Hot Knife Foxing Cutter Name Role Phone Antonia Ovalle MD Primary Care Provider + Joshua Black PharmD Unavailable [phone] Allergies Active Allergy Reactions Criticality Noted Date Comments Gramineae Pollens Itching 01/31/2022 Pork (Porcine) Protein Hives 07/02/2021 Shellfish Allergy 01/25/2023 Medications omega-3 (Fish Oil) 1000 MG capsule 2 capsules once daily OTC Active glucose (Glutose) 40 % gel oral gelIndications:T ype 2 diabetes mellitus without complication, with long-term current use of insulin ([facility]) Take 15 g by mouth if needed for low blood sugar. 60 g 3 023 Active FREESTYLE LITE test stripIndications :Type 2 diabetes, diet controlled ([facility]) Use 3x/d 100 strip 11 024 Active rosuvastatin (Crestor) 10 MG tabletIndication s:Mixed hyperlipidemia TAKE 1 TABLET BY MOUTH AT BEDTIME 90 tablet 3 024 Active latanoprost (Xalatan) 0.005 % ophthalmic solution Administer 1 drop into both eyes at bedtime. 2.5 mL 11 024 2024 Active losartan-hydroCH LOROthiazide (Hyzaar) 100-25 MG [...] EVERY MORNING 30 tablet 5 024 Active aspirin 81 MG EC tablet Take [...] at bedtime. 90 capsule 2 025 Active carBAMazepine XR (TEGretol XR) 100 MG 12 hr tablet TAKE 1 TABLET BY MOUTH TWICE DAILY IN THE MORNING AND IN THE EVENING 60 tablet Active levothyroxine (Synthroid, Levoxyl) 75 MCG tablet TAKE 1 TABLET BY MOUTH EVERY MORNING 30 tablet 025 Active metFORMIN (Glucophage) 850 MG tablet TAKE 1 TABLET BY MOUTH TWICE DAILY IN THE MORNING AND IN THE EVENING WITH FOOD 60 tablet Active pen needle 33G x 4 mm [facility] [place], [place] Use as instructed 100 each 025 2025 Active ergocalciferol (Vitamin D2) 1.25 MG (53636 UT) capsule Take 1 capsule (1.25 mg) by mouth 1 (one) time per week. 12 capsule 1 025 2024 Active insulin glargine (Lantus SoloStar) 100 UNIT/ML penIndications:T ype 2 diabetes mellitus without complication, with long-term current use of insulin ([facility]) INJECT 30 UNITS SUBCUTANEOUSLY EVERY MORNING 15 mL Active insulin glargine (Lantus SoloStar) 100 UNIT/ML penIndications:T ype 2 diabetes mellitus without complication, with long-term current use of insulin ([facility]) INJECT 25 UNITS SUBCUTANEOUSLY EVERY MORNINGINJECT 25 UNITS SUBCUTANEOUSLY EVERY MORNING 15 mL 11 025 2024 Discontinued(R eorder (will not trigger notification to Pharmacy)) Active Problems Problem Noted Date Diagnosed Date Vitamin D deficiency 10/07/2024 Polyp of colon 10/01/2024 Overview (10/01/2024): Colonoscopy at [facility] on 2019 Assessment & Plan (10/01/2024 7:29 PM EDT): S/p colonoscopy on 2019 at [facility] Tiredness 10/01/2024 Assessment & Plan (10/01/2024 7:37 [...] 6:13 PM EST): Nothing to be infected [place] to use otc Vaseline ointment on affected [...] one due . FU with ophthalmology at [facility] for glaucoma FU. CRC screen: Overdue, will [...] due January 2023. FU with ophthalmology at [facility] for glaucoma FU. CRC screen: Up [...] COMA, WITH LONG-TERM CURRENT USE OF INSULIN ([facility]) WRITTEN ON 11/27/2022 5:33 PM [...] Encounters Date Type Department Care Team Description 11/17/2024 3:15 PM EDT Office Visit [facility] [address] [place] [phone] Antonia Ovalle MD Type 2 diabetes mellitus without complication, with long-term current use of insulin (CMS/[facility]) (Primary Dx); 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); Myalgia 11/17/2024 Travel 11/14/2024 Telephone [facility] [address] [place] [phone] Antonia Ovalle MD chart prep 11/11/2024 Patient Outreach [address] [address] Antonia Ovalle MD Pre-visit Planning (SDOH screening negative and Tobacco screening negative) 10/08/[address] [address] Antonia Ovalle MD Results 10/07/2024 Orders Only [facility] [address] [place] [phone] Antonia Ovalle MD Vitamin D deficiency (Primary Dx) 10/02/2024 Refill [facility] [address] [place] [phone] Antonia Ovalle MD 09/29/2024 2:30 PM EDT Office Visit [address] [address] Antonia Ovalle MD Encounter for preventive health examination (Primary Dx); Polyp of colon, unspecified part of colon, unspecified type; Calcaneal spur of right foot; Tiredness; Type 2 diabetes mellitus without complication, with long-term current use of insulin ([facility]) 09/29/2024 Travel 09/22/2024 Patient Outreach [facility] [address] [place] [address] Antonia Ovalle MD Pre-visit Planning ([facility] unable to reach [facility] ) 09/04/2024 Telephone [facility] [address], [place] [phone] Antonia Ovalle MD Appointment Request 08/30/2024 Refill [facility] [address], [place] [phone] Antonia Ovalle MD from Last 3 Months Immunizations Name Administration [...] 11/17/2024 2:24 PM ED T Respiratory Rate 16 12/06/2023 12:01 PM EDT Oxygen Saturation 98% 11/17/2024 2:24 PM EDT Inhaled Oxygen Concentration - - Weight 70.9 kg (156 lb 6 oz) 11/17/2024 2:24 PM EDT Height 157.5 cm (5' 2 ) 11/17/2024 2:24 PM EDT Body Mass Index 28.6 11/17/2024 2:24 PM EDT Plan of Treatment Upcoming Encounters Date Type Department Care Team (Late st Contact Info) Description 11/17/2024 3:15 PM EDT Office Visit [facility] [address] [place] [address] Antonia Ovalle MD [address] [place] [address] Type 2 diabetes mellitus without complication, with long-term current use of insulin (CMS/HCC) (Primary Dx); 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); Myalgia 02/10/2025 3:00 PM EDT Office Visit [facility] ADULT DENTAL [address] [place] [address] Bruce Wellsaris [address] [place] [address] Health Maintenance Due Date Last Done Comments Anal Pap 1961 CT Colonography 1961 FIT DNA/Cologuard 1961 FIT 1961 FOBT 1961 Sigmoidoscopy 1961 Hepatitis A Vaccines (1 of 2 - Risk 2-dose series) 1980 Colonoscopy 01/31/2024 01/30/2019 Colorectal Cancer Screening 01/31/2024 Depression Screening 02/20/2024 02/19/2023, 02/20/20 23 Dental Oral Exam 09/04/2024 03/03/2024, 06/15/2022 Alcohol/Substance Use Screening 12/05/2024 12/06/2023 Dental X-Ray: Bitewings 02/07/2025 02/07/2024, 06/15 Dental Prophylaxis 02/09/2025 08/11/2024, 0 02/07/2024, 08/29/2022 Diabetes: Hemoglobin A1C 04/01/2025 025, 06/12/2024, 09/03/2023, Additional history exists Dental X-Ray: Full Mouth 06/16/2025 06/15/2022 Diabetes: Foot Exam 09/29/2025 09/29/2024, 09/29/2024, 09/29/2024, Additional history exists Tobacco Screening 09/29/2025 09/29/2024 Diabetes: Urine Protein Screening 10/04/2025 10/04/2024, 10/23/2023, 12/15/2021, Additional history exists Lipid Panel 10/04/2025 10/04/2024, 10/07, 06/29/2022, Additional history exists SDOH Screening 11/11/2025 11/11/2024 Eye Exam 01/30/2026 01/31/2024, 01/07, 01/31/2024, Additional [...] 2:38 PM EDT) No Joshua Black, Luisa Procedures Procedure Name Priority Date/Time Associated Diagnosis Comments POCT GLUCOSE Routine 11/17/2024 2:30 PM EDT Type 2 diabetes mellitus without complication, with long-term current use of insulin (CMS/HCC) T-SPOT(R).TB Routine 10/28/2024 9:31 AM EDT Encounter for preventive health examination CREATINE KINASE, TOTAL Routine 8:54 AM EDT [...] complication, with long-term current use of insulin (CMS/[facility]) COMPREHENSIVE METABOLIC PANEL Routine 10/04/2024 8:54 AM EDT Type 2 diabetes mellitus without complication, with long-term current use of insulin (CMS/HCC) VITAMIN D,25-OH,TOTAL,IA Routine 10/04/2024 8:54 AM EDT Calcaneal spur of right foot ALBUMIN, RANDOM URINE W/CREATININE Routine 10/04/2024 8:50 AM EDT Type 2 diabetes mellitus without complication, with long-term current use of insulin (CMS/HCC) POCT GLYCATED HEMOGLOBIN, TOTAL Routine 09/29/2024 2:12 PM EDT Type 2 diabetes mellitus without complication, with long-term current use of insulin ([facility]) POCT GLUCOSE Routine 09/29/2024 2:12 PM EDT Type 2 diabetes mellitus without complication, with long-term current use of insulin ([facility]) PROPHYLAXIS - ADULT Routine 08/11/2024 3 :00 [...] Recently Relevant to Health Maintenance Results * POCT Glucose (11/17/2024 2:30 PM EDT) Only the most recent of2 resultswithin the time period is included. [facility] Glucose Blood, POC 90 60 - 200 mg/dL QC Media Lot # [id number] Lot# Expiration Date [id number] Blood Capillary blood specimen / Unknown 11/17/2024 2:30 PM EDT Antonia Ovalle MD POINT OF CARE TEST ENTER /EDIT ORDERABLES Final Result * T-SPOT??.TB (10/28/2024 9:31 AM EDT) Pathologist [facility] T Spot TB Negative Negative [facility] Comment:A negative test resu lt does not exclude the possibilityof exposure to or infection with Mycobacteriumtuberculosis (M. tuberculosis). Patients with recentexposure to TB infected individuals exhibiting anegative T-SPOT.TB result should be considered forretesting within 6 weeks or if other relevant clinicalsymptoms indicate. Results from T-SPOT.TB testing mustbe used in conjunction with each individual'sepidemiological history, current medical status,and results of other diagnostic evaluations.The T-SPOT.TB test is qualitative and results arereported as positive, borderline, or negative, giventhat the test controls perform as expected. In linewith the Centers for Disease Control and Prevention's2010 recommendation to report quantitative measurementsalongside the qualitative result, the laboratoryprovides spot counts for informational purposes only.The T-SPOT.TB test should not be interpreted as aquantitative test. TS PANEL A 2 [facility] TS PANEL B 0 [facility] Negative Control Passed [facility] Positive Control Passed [facility] Comment:For additional infor matnicole, please refer [email or web address].[employer]/faq/[email or web address](This link is being provided for informational/educational purposes only.)REPORT COMMENT:REC'D IN Q-CHYTHIS TEST WAS PERFORMED AT:[place]rents [id number] [place] [id number] LYLES MD,PHD 10/28/2024 9:31 AM EDT 10/28/2024 11:16 AM EDT Antonia Ovalle MD LAB BLOOD ORDERABLES Fin al Result [facility] [address] [place] [phone] [phone] * (ABNORMAL) Vitamin D, 25-Hydroxy, Total, Immunoassay (10/04/2024 8:54 AM EDT) Vitamin D 25-OH Total 22.8(L) >30 ng/mL [facility] Comment: Health Based Reference Values*< 20 ??ng/mL ??Nsbclnoeo79-69 ng/mL ??Insufficient> 30 ??ng/mL ??Sufficient*Rossi SHEARER. N [...] ORDERABLES Fin al Result Performing Organization Address [facility]/ZIP Co de Phone Number [facility] [address] [place] [phone] * TSH with Reflex to Free T4 (10/04/2024 8:54 AM EDT) TSH reflex Free T4 2.71 0.32 - 4.0 uIU/mL [facility] Blood 10/04/2024 8:54 AM EDT 10/04/2024 8:54 AM EDT Antonia Ovalle MD LAB BLOOD ORDERABLES Fin al Result Performing Organization Address [facility]/ZIP Co de Phone Number [facility] [address] [place] [phone] * Lipid Panel with Reflex to Direct LDL (10/04/2024 8:54 AM EDT) Triglycerides 138 <150 mg/dL [facility] Comment:Desirable Triglyceri de: less than 150 mg/dLBorderline High Triglyceride 150-199 mg/dLHigh Triglyceride: 200-499 mg/dLVery High Triglyceride: greater than or equal to 5OO mg/dL Cholesterol 170 <200 mg/dL [facility] Comment:Desirable Cholestero l: less than 200 mg/dLBorderline High Cholesterol: 200-239 mg/dLHigh Cholesterol: greater than 239 mg/dL LDL Cholesterol Calculated 96 <100 mg/dL [facility] Comment:Desirable LDL: less than 100 mg/dLNear Optimal/Above Optimal LDL: 110- 129 mg/dLBorderline High LDL: 130-159 mg/dLHigh LDL: 160-189 mg/dLVery High LDL: greater than or equal to 190 mg/dL HDL Cholesterol 47 >40 mg/dL [facility] Comment:Desirable HDL: great er than 40 mg/dL Note: This HDL assay may give artificially low results in patients with liver disease. Blood 10/04/2024 8:54 AM EDT 10/04/2024 8:54 AM EDT us Antonia Ovalle MD LAB BLOOD ORDERABLES Fin al Result Performing Organization Address [facility] de Phone Number [facility] [address] [place] [phone] * Hepatitis Panel, General (10/04/2024 8:54 AM EDT) Hepatitis A IgM Nonreactive Nonreactive [facility] Comment:IgM antibodies to NOYOLA V not detected; does not exclude earlyacute or recovered HAV infection. ~Hepatitis B Surface Antibody NONREACTIVE Nonreactive [facility] Comment:Nonreactive: < 8.00 mIU/mL Hepatitis B Core Antibody Nonreactive Nonreactive [facility] Hepatitis C Antibody Nonreactive Nonreactive [facility] Comment:Antibodies to HCV no t detected; does not exclude early acuteHCV infection. Hepatitis B Surface Ag Negative Negative [facility] Blood 10/04/2024 8:54 AM EDT 10/04/2024 8:54 AM EDT us Antonia Ovalle MD LAB BLOOD ORDERABLES Fin al Result Performing Organization Address [facility]/ZIP Co de Phone Number [facility] [address] [place] [phone] * (ABNORMAL) CBC auto differential (10/04/2024 8:54 AM EDT) White Blood Count 5.9 4.8 - 10.8 X10*3/uL [facility] Red Blood Count 4.79 4.60 - 5.80 X10*6/uL [facility] Hemoglobin 13.8(L) 14.0 - 18.0 g/dl [facility] Hematocrit 41.8(L) 42.0 - 52.0 % [facility] Mean Corpuscular Volume 87.3 80.0 - 98.0 fL [facility] Mean Corpuscular Hemoglobin 28.8 27.0 - 33.0 pg [facility] Mean Corpuscular HGB Conc 33.0 31.0 - 36.0 g/dl [facility] Red Cell Distribution Width 13.9 11.0 - 16.0 % [facility] Platelet Count 234 160 - 400 X10*3/uL [facility] Mean Platelet Volume 9.0(L) 9.4 - 12.4 fL [facility] Neutrophils Percent Auto 47.0 45 - 73 % [facility] Imm Gran Pct Auto 0.5(H) 0.0 - 0.4 % [facility] Lymphocytes Percent Auto 38.6 20 - 40 % [facility] Monocytes Percent Auto 9.1 2 - 11 % [facility] Eosinophils Percent Auto 4.1(H) 0 - 4 % [facility] Basophils Percent Auto 0.7 0 - 2 % [facility] NRBC Pct Auto 0.0 0.0 - 0.2 /100WBC [facility] Neutrophils Absolute Auto 2.8 2.0 - 8.3 x10*3/uL [facility] Imm Gran Abs Auto 0.03 0.00 - 0.03 X10*3/uL [facility] Lymphocytes Absolute Auto 2.3 1.2 - 4.9 X10*3/uL [facility] Monocytes Absolute Auto 0.5 0.1 - 1.2 X10*3/uL [facility] Eosinophils Absolute Auto 0.2 0.0 - 0.4 X10*3/uL [facility] Basophils Absolute Auto 0.0 0.0 - 0.2 X10*3/uL [facility] NRBC Abs Auto 0.000 0.0 - 0.012 X10*3/uL [facility] Blood Venous blood specimen / Unknown 10/04/2024 8:54 AM EDT 10/04/2024 8:54 AM EDT us Antonia Ovalle MD LAB BLOOD ORDERABLES Fin al Result Performing Organization Address City/[facility]/ZIP Co de Phone Number [facility] [address] [place] [phone] * HIV-1/2 Antigen and Antibodies, Fourth Generation, with Reflexes (10/04/2024 8:54 AM EDT) HIV AB/AG Nonreactive Nonreactive [facility] Comment:HIV-1 p24 Ag and/or HIV-1/HIV-2 Ab not detected.A test result that is nonreactive does not exclude thepossibility of exposure to or infection with HIV-1 and/orHIV-2. Nonreactive results in this assay for individualswith prior exposure to HIV-1 and/or HIV-2 may be due toantigen and antibody levels that are below the limit ofdetection of this assay.The [employer] HIV Ag/Ab Combo assay result andsupplemental assay results should be interpreted inconjunction with the patient's clinical presentation,history and other laboratory results. If the results areinconsistent with clinical evidence, additional testing issuggested to confirm the result. Blood Venous blood specimen / Unknown 10/04/2024 8:54 AM EDT 10/04/2024 8:54 AM EDT us Antonia Ovalle MD LAB BLOOD ORDERABLES Fin al Result [facility] [address] [place] [phone] * (ABNORMAL) Creatine Kinase, Total (10/04/2024 8:54 AM EDT) Pathologist [facility] Creatine Kinase Total 295(H) 38 - 174 U/L [facility] Blood Venous blood specimen / Unknown 10/04/2024 8:54 AM EDT 10/04/2024 8:54 AM EDT us Antonia Ovalle MD LAB BLOOD ORDERABLES Fin al Result [facility] [address] [place] [address] [phone] * (ABNORMAL) Comprehensive Metabolic Panel (10/04/2024 8:54 AM EDT) Pathologist [facility] Sodium 143 135 - 145 mmol/L [facility] Potassium 3.8 3.3 - 5.1 mmol/L [facility] Chloride 107 96 - 108 mmol/L [facility] Carbon Dioxide 29 22 - 29 mmol/L [facility] Anion Gap 11(L) 12 - 20 [facility] Urea Nitrogen (BUN) 15 9 - 16 mg/dL [facility] Creatinine, Serum 0.79 0.5 - 1.4 mg/dL [facility] Estimated Glomerular Filt Rate >60 [facility] Comment:Chronic Kidney Disea se: Estimated GFR < 60 mL/min/[id number] Kidney Disease: Estimated GFR < 15 mL/min/1.73m2 Glucose 96 60 - 115 mg/dL [facility] Calcium 9.0 8.4 - 10.2 mg/dL [facility] Bilirubin, Total 0.3 0.0 - 1.0 mg/dL [facility] Aspartate Amino Transferase 23 5 - 37 U/L [facility] Alanine Aminotransferase 24 0 - 40 U/L [facility] Total Protein 7.3 6.5 - 8.0 g/dL [facility] Albumin Level 4.4 3.5 - 5.0 g/dL [facility] Alkaline Phosphatase 71 39 - 117 U/L [facility] Blood Venous blood specimen / Unknown 10/04/2024 8:54 AM EDT 10/04/2024 8:54 AM EDT Antonia Ovalle MD LAB BLOOD ORDERABLES Fin al Result Performing Organization Address [facility] Co de Phone Number [facility] [address] [place] [phone] * Albumin, Random Urine W/Creatinine (10/04/2024 8:50 AM EDT) Creatinine, Urine 166.71 mg/dL [facility] Microalbumin Urine 13.0 mg/L [facility] Microalbum Creatinine Ratio Ur 7.7 <30 ug/mg cr [facility] Comment:Albumin/Creatinine R atio Reference Ranges: Normal: < 30 ug/mg creatinine Microalbuminuria: 30 - 300 ug/mg creatinineClinical Albuminuria: > 300 ug/mg creatinine Urine (Urine, Random) 10/04/2024 8:50 AM EDT 10/04/2024 11:03 AM EDT Antonia Ovalle MD LAB URINE ORDERABLES Fin al Result Performing Organization Address [facility] Co de Phone Number [facility] [address] [place] [phone] * (ABNORMAL) POCT HGB A1C (09/29/2024 2:12 PM EDT) Hemoglobin A1C 6.6(A) 4.0 - 6.0 % QC Media Lot # [id number] Lot# Expiration Date Blood 09/29/2024 2:12 PM EDT Antonia Ovalle MD POINT OF CARE TEST ENTER /EDIT ORDERABLES Final Result * Hm Colonoscopy (01/30/2019 2:31 PM EDT) Colonoscopy Normal Normal Narrative Ashley Kern - 01/30/2019 2:31 PM EDT Recommended 5 year follow up ([facility]) us Historical Provider HEALTH MAINTENANCE Edited Result - Final from Last 3 Months or Most Recently Relevant to Health Maintenance Insurance HSN PARTIAL [facility] PL[facility] DENTAL - HSN PARTIAL (MEDICAID) Care Teams Hot Knife Foxing Cutter Relationship Specialty Start Date End Date Antonia Ovalle MD [address] [place] [address] PCP - General Family Medicine 02/27/19 Joshua Black, Luisa [address] [place] [address] Pharmacist Internal Medicine 10/16/22
--- OUTSIDE RECORDS SUMMARY | 2024-11-17 14:53 | XMS_ITS | Encounter Summary ---
Author Organization [employer] Address [address] [place] [address] Care Team Providers Care Video Game Designer Name Role Phone Antonia Ovalle MD Primary Care Provider + Joshua Black PharmD Unavailable [phone] Encounter Details Date Type Department Care Team (Late st Contact Info) Description 09/06/2022 Orders Only [facility] OPTOMETRY [address] [place] [address] Joao, Saray, OD [address] [place] [address] Primary open angle glaucoma (POAG) of both [...] Description 11/17/2024 3:15 PM EDT Office Visit [facility] MEDICINE [address] [place] [address] Antonia Ovalle MD [address] [place] [address] Type 2 diabetes mellitus without complication, with long-term current use of insulin (CMS/HCC) (Primary Dx); 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); Myalgia 02/10/2025 3:00 PM EDT Office Visit [facility] ADULT DENTAL [address] [place], [place] [phone] Bruce Wellsaris [address] [place] [address] documented as of this encounter Visit Diagnoses Diagnosis Primary open angle glaucoma (POAG) of both eyes, mild stage- Primary Type 2 diabetes mellitus without complication, with long-term current use of insulin (CMS/HCC)- Primary 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) Myalgia Unspecified myalgia and myositis documented in this encounter Care Teams Video Game Designer Relationship Specialty Start Date End Date Antonia vOalle MD [address] [place] [phone] PCP - General Family Medicine 02/27/19 Joshua Black, Luisa [address] [place] [address] [phone] Pharmacist Internal Medicine 10/16/22 documented as of this encounter
--- OUTSIDE RECORDS SUMMARY | 2024-11-17 14:53 | XMS_ITS | Encounter Summary ---
Author Organization [employer] Address [address] [place] [address] Care Team Providers Care Clinical Services Consultant Name Role Phone Antonia Ovalle MD Primary Care Provider + Joshua Black PharmD Unavailable [phone] Encounter Details Date Type Department Care Team (Latest Contact Info) Description 12/31/2018 Abstract [facility] CONVERSIONS Dental, Provider, DDS Social History Tobacco [...] Office Visit [facility] MEDICINE [address] [place] [address] Antonia Ovalle MD [address] [place] [address] Type 2 diabetes mellitus without complication, with long-term current use of insulin (CMS/HCC) (Primary Dx); 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); Myalgia 02/10/2025 3:00 PM EDT Office Visit [facility] ADULT DENTAL [address] [place] [address] Christa Wells [address] [place] [address] documented as of this encounter Visit Diagnoses Not on filedocumented in this encounter Care Teams Clinical Services Consultant Relationship Specialty Start Date End Date Antonia Ovalle MD [address] [place] [address] PCP - General Family Medicine 02/27/19 Joshua Black, NathalieD [address] [place] [address] Pharmacist Internal Medicine 10/16/22 documented as of this encounter
--- OUTSIDE RECORDS SUMMARY | 2024-11-17 14:53 | XMS_ITS | Encounter Summary ---
Author Organization [employer] Address [address] [place] [address] Care Team Providers Care Cinder Pit Worker Name Role Phone Antonia Ovalle MD Primary Care Provider + Joshua Black PharmD Unavailable [phone] Encounter Details Date Type Department Care Team (Late Contact Info) Description 12/21/2022 Abstract [facility] [address] [place] [address] Antonia Ovalle MD [address] [place], [place] [phone] Social History Tobacco Use Types Packs/Day Years [...] Description 11/17/2024 3:15 PM EDT Office Visit [facility] [address] [place] [address] Antonia Ovalle MD [address] [place] [address] Type 2 diabetes mellitus without complication, with long-term current use of insulin ([facility]) (Primary Dx); Polyneuropathy due to type 2 diabetes mellitus ([facility]); Myalgia 02/10/2025 3:00 PM EDT Office Visit [facility] ADULT DENTAL [address] [place] [address] Christa Wells [address] [place] [address] documented as of this encounter Goals Goal Patient Goal Type Associated Problems Recent Progress Patient-Stated? Author Blood Pressure < 140/90 Blood Pressure 120/82( 025 2:38 PM EDT) No Joshua Black, Luisa documented as of this encounter Procedures Procedure Name Priority Date/Time Associated Diagnosis Comments COLONOSCOPY Routine 01/30/2019 2:31 PM EDT documented in this encounter Results * Colonoscopy (01/30/2019 2:31 PM EDT) Colonoscopy Normal Normal Narrative Ashley Kern - 01/30/2019 2:31 PM EDT Recommended 5 year follow up ([facility]) us Historical Provider [facility] Edited Result - Final documented in this encounter Visit Diagnoses Not on filedocumented in this encounter Care Teams Cinder Pit Worker Relationship Specialty Start Date End Date Antonia Ovalle MD [address] [place], [place] [phone] PCP - General Family Medicine 02/27/19 Joshua Black, PharmD [address] [place] [address] Pharmacist Internal Medicine 10/16/22 documented as of this encounter
--- OUTSIDE RECORDS SUMMARY | 2024-11-17 14:53 | XMS_ITS | Encounter Summary ---
Author Organization [employer] Address [address] [place] [address] Care Team Providers Care Industrial Green Systems Designer Name Role Phone Antonia Ovalle MD Primary Care Provider + Joshua Black PharmD Unavailable [phone] Reason for Visit * Reason Comments Med Refill Encounter Details Date Type Department Care Team (Late st Contact Info) Description 08/06/2023 Refill [facility] [address] [place], [place] [phone] Melisa Sam DO [address] [place], [place] [phone] Anxiety Social History Tobacco Use Types Packs/Day [...] Description 11/17/2024 3:15 PM EDT Office Visit [facility] [address] [place] [address] Antonia Ovalle MD [address] [place] [address] Type 2 diabetes mellitus without complication, with long-term current use of insulin (CMS/HCC) (Primary Dx); 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); Myalgia 02/10/2025 3:00 PM EDT Office Visit [facility] ADULT DENTAL [address] [place] [address] Christa Wells [address] [place] [address] documented as of this encounter Goals Goal [...] documented as of this encounter Care Teams Industrial Green Systems Designer Relationship Specialty Start Date End Date Antonia Ovalle MD [address] [place] [address] PCP - General Family Medicine 02/27/19 Joshua Black, Luisa [address] [place] [address] Pharmacist Internal Medicine 10/16/22 documented as of this encounter
--- OUTSIDE RECORDS SUMMARY | 2024-11-17 14:53 | XMS_ITS | Encounter Summary ---
Author Organization [employer] Address [address] [place] [address] Care Team Providers Care Key Attendant Name Role Phone Antonia Ovalle MD Primary Care Provider + Joshua Black PharmD Unavailable [phone] Reason for Visit * Reason Comments Med Refill Encounter Details Date Type Department Care Team (Late st Contact Info) Description 09/26/2023 Refill [facility] [address] [place], [place] [phone] Antonia Ovalle MD [address] [place], [place] [phone] Social History Tobacco Use Types Packs/Day Years [...] Description 11/17/2024 3:15 PM EDT Office Visit [facility] [address] [place] [address] Antonia Ovalle MD [address] [place] [address] Type 2 diabetes mellitus without complication, with long-term current use of insulin ([facility]) (Primary Dx); Polyneuropathy due to type 2 diabetes mellitus ([facility]); Myalgia 02/10/2025 3:00 PM EDT Office Visit [facility] ADULT DENTAL [address] [place], [place] [phone] Christa Wells [address] [place] [address] documented as of this encounter Goals Goal [...] documented as of this encounter Care Teams Key Attendant Relationship Specialty Start Date End Date Antonia Ovalle MD [address] [place] [address] PCP - General Family Medicine 02/27/19 Joshua Black, PharmD [address] [place] [address] Pharmacist Internal Medicine 10/16/22 documented as of this encounter
--- OUTSIDE RECORDS SUMMARY | 2024-11-17 14:53 | XMS_ITS | Encounter Summary ---
Author Organization [employer] Address [address] [place] [address] Care Team Providers Care Print Cutter Name Role Phone Antonia Ovalle MD Primary Care Provider + Joshua Black PharmD Unavailable [phone] Encounter Details Date Type Department Care Team (Latest Contact Info) Description 01/05/2021 Abstract [facility] CONVERSIONS Dental, Provider, DDS Social History [...] Description 11/17/2024 3:15 PM EDT Office Visit [facility] [address] [place] [address] Antonia Ovalle MD [address] [place], [place] [phone] Type 2 diabetes mellitus without complication, with long-term current use of insulin (CMS/HCC) (Primary Dx); 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); Myalgia 02/10/2025 3:00 PM EDT Office Visit [facility] ADULT DENTAL [address] [place] [address] Christa Wells [address] [place] [address] documented as of this encounter Visit Diagnoses Not on filedocumented in this encounter Care Teams Print Cutter Relationship Specialty Start Date End Date Antonia Ovalle MD [address] [place] [address] PCP - General Family Medicine 02/27/19 Joshua Black, NathalieD [address] [place] [address] Pharmacist Internal Medicine 10/16/22 documented as of this encounter
[2024-11-20 10:14] LABS: Aldolase 5.8 U/L (<=8.1)
== END 2024-11-17 14:50 | disposition home or self-care (01) ==
LOC: HO.HHCL 14:49
PROVIDERS: Visit Provider Internal Medicine
DX: M79.10 Myalgia, unspecified site (principal)
CPT/HCPCS: 36415; 82085; 82550

== ENCOUNTER 2024-12-19 11:43 | Outpatient (AMB) | payer OTHER, SELFPAY ==
--- NOTE | 2024-12-19 11:52 | MHC.OFFVIS ---
Vital Signs 12/19/24 11:54 12/19/24 12:10 Height 5 ft 2 in Weight 150 lb 155 lb BMI 27.4 BP 167/92 H Blood Pressure Location Lt brachial Position Sitting Pulse 77 Pulse Oximetry (%) 99 Oxygen Delivery Method Room Air Comment wt obtain on scale with shoes on Intake Visit Reasons: colo screening Intake Note: Patient new consult for pre Colonoscopy screening. [place] yrs [place] [facility] Patient denies any GI issues for today visit. Medical Administrative Specialist Required: No Accompanied by: Self / Same As Patient Allergies pork Allergy (Intermediate, Uncoded 12/19/24 12:26) Hives Medication List - Last Reconciled 12/19/24 by Jacki Vela CNP aspirin 81 mg PO DAILY bisacodyl 5 mg PO ONCE 1 day diltiazem HCl ER (Cardizem LA) 120 mg PO QPM famotidine 20 mg PO DAILY PRN insulin glargine (Lantus Solostar U-100 Insulin) 30 units subcut QAM lancets (TRUEplus Lancets) As directed levothyroxine 88 mcg PO DAILY losartan-hydrochlorothiazide 100-12.5 mg 1 tab PO DAILY metformin 850 mg PO BID omega 8-lea-utf-fish oil 300-1,000 mg (Fish Oil) 2 caps PO DAILY omeprazole 20 mg PO DAILY polyethylene glycol 3350 (Miralax) 238 grams PO ONCE rosuvastatin 10 mg PO BEDTIME vitamin T13-czhdrsfpt factor 1 cap PO DAILY HPI HPI colo screening: Details: Patient is a 64-year-old male with PMH of diabetes, thyroid disease, sleep apnea, hyperlipidemia, hypertension and GERD. Referred by PCP for pre colonoscopy screening. Isaac reports a history of polyps found in both previous colonoscopies and upper endoscopies, the most recent of which was in 2019 through outside facility. He experiences loose stools occasionally, approximately once a week, often associated with coffee consumption. He does not experience pain with these episodes. One month ago, he observed bright red blood in his stools, which he associates with hemorrhoids. He denies any other abdominal pain, nausea, vomiting, or regurgitation. He has a history of heartburn, particularly triggered by spicy foods, despite being on omeprazole, which he takes mostly on an empty stomach early in the morning. His weight has been stable over the years, fluctuating between 150-155 lbs from a previous high of 165 lbs in 2020. He denies intentional weight loss and does not have any significant concerns about this. Patient denies: fever/chills, dysphasia or unintentional wt loss Social History - Diet: No specific dietary restrictions mentioned. Consumes spicy foods despite occasional GERD symptoms. - Alcohol/Tobacco/Drug Use: Never consumes alcohol or drugs, and has never smoked. - Occupation: Works as a cook at [employer] - family hx as below -denies personal hx of CA -denies significant cardiopulmonary history -tolerated anesthesia in the past without difficulty. [facility] Medical History (Updated 12/19/24 @ 16:26 by Jacki Vela CNP) Colon cancer screening Diabetes Thyroid disease GERD (gastroesophageal reflux disease) Lab test negative for COVID-19 virus Sleep apnea Elevated cholesterol HTN (hypertension) Surgical History H/O colonoscopy Social History Alcohol intake: never Review of Systems Const Reports as per HPI ENT Reports as per HPI Card Reports as per HPI Resp Reports as per HPI GI Reports as per HPI Reports as per HPI Physical Exam Vital Signs: Last Vital Signs Pulse 77 12/19/24 11:54 BP 167/92 H 12/19/24 11:54 Pulse Ox 99 12/19/24 11:54 Oxygen Delivery Method Room Air 12/19/24 11:54 BMI result Body Mass Index 27.4 Const General: healthy appearing, no acute distress and well developed Nutritional Appearance: well nourished Orientation/consciousness: patient oriented x3 HEENT Head: Yes normal to inspection, Yes normocephalic and Yes atraumatic Face and sinus: Yes normal facial exam Eyes General: appearance normal, both eyes and all related structures Neck Neck: Yes normal visual inspection Resp Effort & Inspection: normal respiratory effort, able to speak in complete sentences, no tracheal deviation and symmetric chest movement Auscultation: clear to auscultation bilaterally Cardio Jugular venous distension: no JVD Rate: regular rate Rhythm: regular rhythm Heart sounds: S1 normal heart sound present, S2 normal heart sound present, no gallops and no murmurs GI Inspection: Yes normal to inspection and No distended Palpation (GI): Soft to palpation, not firm, nontender and No hepatosplenomegaly present Auscultation: normal bowel sounds Neuro General: patient oriented x3 Gait exam (Neuro): Normal gait present Psych Appearance: grossly normal Mental Status: mental status grossly normal Speech and movement: Normal speech and movement present Affect: normal affect Attitude: cooperative Thought process: Normal thought process present Thought content: Normal thought content present Insight: Good insight present (Psych) Judgement: Good judgement present (Psych) Assessment & Plan Assessment & Plan (1) Colon cancer screening: Comment: Able to located pathology report from 02/10/2020 EGD + colonoscopy. EGD with findings suggestive of PPI effect to gastric fundic-body mucosa + fundic gland poylp, otherwise normal. No colon polyp or pathologic mucosa changes present. Code(s): Z12.11 - Encounter for screening for malignant neoplasm of colon Category: Medical Plan: Last colonoscopy 2018 with reported polypectomy, completed at outside facility. Records not available at time of visit. Due for Polyp surveillance colonoscopy Medications: -prescriptions for laxative tablets and [] sent to pharmacy; instructions for Gatorade purchase and clear liquid diet given. -understands diabetes medications and ASA will need to be held days prior to procedure. Nurse to review med holds per protocol. Diagnostic Tests: Prescriptions for laxative tablets and Miralax sent to pharmacy; instructions for Gatorade purchase and clear liquid diet given. Patient educated on scheduling process, procedure preparation, including avoiding certain foods and ensuring clear liquid intake Advised on necessity for ride post-procedure due to sedation. (2) GERD (gastroesophageal reflux disease): Code(s): K21.9 - Gastro-esophageal reflux disease without esophagitis Category: Medical Qualifiers: Esophagitis presence: esophagitis presence not specified Qualified Code(s): K21.9 - Gastro-esophageal reflux disease without esophagitis Plan: Patient experiences heartburn despite medication. Additional Tests: upper endoscopy scheduled at time of colonoscopy Medications: Continue omeprazole 20mg daily, introduce famotidine (Pepcid) for breakthrough symptoms. Encouraged to take omeprazole as prescribed, taken at least 30-60 minutes before a meal. Education on GERD prevention : -Advised against heavy meals; encouraged small, frequent meals instead of large ones. - Instructed to remain upright for 2?3 hours after eating. - Advised to avoid late-night meals, spicy foods, caffeine, alcohol, known dietary triggers, and tight-fitting clothing. - Emphasis placed on gradual implementation of lifestyle changes to improve adherence and symptom control. Plan follow up after endoscopy or sooner as needed Time: I spent a total of 40 minutes on the date of encounter which includes: Preparing to see the patient (reviewed previous documentation, test results and medical history) Performing a medically appropriate exam and/or evaluation Ordering medications, tests, and procedures Documenting clinical information in the health record Medications: New bisacodyl Take four tablets once for 1 day per colonoscopy instructions 5 mg PO ONCE 1 day 4 tabs 0RF famotidine Take one tablet daily as needed for acid reflux 20 mg PO DAILY PRN 90 tabs 1RF GERD polyethylene glycol 3350 (Miralax) per colonoscopy prep instructions 238 grams PO ONCE 238 grams 0RF Changed From omeprazole 20 mg PO DAILY To omeprazole Take one tablet daily. Best taken 30 minutes before meal 20 mg PO DAILY 90 caps 0RF Coding Level of Care Code New Pt New Pt Level 5 (21968) Patient Type New Diagnoses Colon cancer screening Z12.11 Gastroesophageal reflux disease, unspecified whether esophagitis present K21.9 Esophagitis presence: esophagitis presence not specified
[2024-12-19 11:54] VITALS: BP 167/92; PULSE 77; O2SAT 99; BMI 27.4
--- OUTSIDE RECORDS SUMMARY | 2024-12-19 12:41 | XMS_ITS | Clinical Summary ---
Author Organization [facility] Address [address] [place] [address] Care Team Providers Care Hand Rigger Name Role Phone Antonia Ovalle Primary Care Provider [phone] Allergies Active Allergy Reactions Criticality Noted Date [...] Vaccine: 50+ Years Completed 3, 06/29/2009 Insurance [facility] HSNO/[place] [address] [address] Care Teams Hand Rigger Relationship Specialty Start Date End Date Antonia Ovalle [address] [place] [address] PCP - General Internal Medicine 01/26/21
== END 2024-12-19 12:33 | disposition home or self-care (01) ==
LOC: HO.HGI 11:43
PROVIDERS: PCP Internal Medicine; Visit Provider Nurse Practitioner Family
DX: K21.9 Gastro-esophageal reflux disease without esophagitis (principal); Z12.11 Encounter for screening for malignant neoplasm of colon; Z01.818 Encounter for other preprocedural examination
CPT/HCPCS: 99203

== ENCOUNTER → 2024-12-19 11:43 | Outpatient (BNVA) | payer OTHER, SELFPAY | PROVIDERS: PCP Internal Medicine; Visit Provider Nurse Practitioner Family | DX: Z12.11 Encounter for screening for malignant neoplasm of colon (principal) | CPT/HCPCS: 99202 ==

== ENCOUNTER 2025-03-19 13:12 | Outpatient (REF) | payer OTHER, SELFPAY ==
--- OUTSIDE RECORDS SUMMARY | 2025-03-16 16:00 | XMS_ITS | Encounter Summary ---
Author Organization [email or web address] Address [address] [facility] [address] [place] [address] Care Team Providers Care [employer] Worker Name Role Phone Antonia Ovalle MD Primary Care Provider + Joshua Black PharmD Unavailable [phone] Reason for Referral * Hospital - Outpatient (Routine) - Authorized Specialty Diagnoses / Procedures Referred By Contac t Referred To Contact Diagnoses Obstructive sleep apnea syndrome Procedures Polysomnography Antonia Ovalle MD [address] [place] [address] Phone: tel: fax: [address] Phone: tel: fax: Referral ID Status Reason Start Date Expiration Date V isits Requested Visits Authorized [id number] Authorized 03/16/2025 03/16/2026 1 1 Encounter Details Date Type Department Care Team (Late st Contact Info) Description 03/16/2025 4:00 PM EDT Office Visit [facility] [address] [place], [place] [phone] Antonia Ovalle MD [address] [place], [place] [phone] Tiredness (Primary Dx); Obstructive sleep apnea syndrome; Acute pain of left shoulder; Pain in other joint; Type 2 diabetes mellitus without complication, with long-term current use of insulin (CMS/HCC); Encounter for colorectal cancer screening Social History Tobacco Use Types Packs/Day Years [...] housing situation today? I have [employer] 11/11/[address] you [...] Sign Reading Time Taken Comments Blood Pressure 124/76 03/16/2025 3:48 PM EDT Pulse 75 03/16/2025 3:48 PM EDT Temperature 36.1 C (97 F) 03/16/2025 3:48 PM EDT Respiratory Rate 16 03/16/2025 3:48 PM EDT Oxygen Saturation 98% 03/16/2025 3:48 PM EDT Inhaled Oxygen Concentration - - Weight 70.6 kg (155 lb 9.6 oz) 03/16/2025 3:48 P M EDT Height 157.5 cm (5' 2 ) 03/16/2025 3:48 PM EDT Body Mass Index 28.46 03/16/2025 3:48 PM EDT documented in this encounter Progress Notes * Antonia Ovalle MD - 03/16/2025 4:00 PM EDT Answers submitted by the patient for this visit: Diabetes Questionnaire (Submitted on 03/09/2025) Chief Complaint: Diabetes problem Diabetes type: type 2 MedicAlert ID: No Disease duration: 20 Years blurred vision: Yes foot paresthesias: Yes foot ulcerations: No visual change: Yes weight loss: No Symptom course: stable hunger: No mood changes: Yes sleepiness: Yes sweats: No blackouts: No hospitalization: No nocturnal hypoglycemia: No required assistance: No required glucagon: No CVA: No heart disease: No impotence: Yes nephropathy: No peripheral neuropathy: Yes PVD: No CAD risks: dyslipidemia, hypertension, obesity Current treatments: diet, insulin injections, oral agent (monotherapy) Treatment compliance: all of the time Dose schedule: pre-breakfast Given by: patient Injection sites: abdominal wall Home blood tests: 3-4 x per day Monitoring compliance: adequate Blood glucose trend: increasing rapidly breakfast time: 5-6 am breakfast glucose level: 90-110 lunch time: 10-11 am lunch glucose level: 110-130 dinner time: 5-6 pm dinner glucose level: 90-110 Bedtime: 8-9 pm Bedtime glucose level: 130-140 High score: 180-200 Overall: 140-180 Weight trend: stable Current diet: generally healthy Meal planning: none Exercise: never Dietitian visit: No Eye exam current: Yes Sees lead worker of housekeeping and laundry: Yes SUBJECTIVE: Isaac Bonilla is a 64 y.o. year old male who presents for follow up myalgias. Denies recent illness, injury, or hospitalization. Continues with fatigue, gets tired easily, usually after long day of work. He co bl shoulder and knee pain radiated to both ankles mostly after break. Joint pains are improved with activity. He has hx RAJEEV but insurance hasn't covered CPAP in long time and more recently didn't cover sleep study. Acute Concerns: Social History Social History Narrative Not on file Problem List[1] Family History[2] Review of Systems Constitutional: Positive for fatigue. Negative for fever. HENT: Negative for congestion, ear pain, rhinorrhea and sore throat. Eyes: Negative for pain and discharge. Respiratory: Negative for cough and shortness of breath. Cardiovascular: Negative for chest pain. Gastrointestinal: Negative for abdominal pain, constipation, diarrhea and nausea. Endocrine: Positive for polydipsia. Negative for polyphagia and polyuria. Genitourinary: Negative for dysuria and frequency. Musculoskeletal: Positive for arthralgias. Negative for back pain and neck pain. Skin: Negative for pallor. Neurological: Positive for tremors and weakness. Negative for dizziness, seizures, speech difficulty, numbness and headaches. Psychiatric/Behavioral: Negative for agitation and confusion. The patient is not nervous/anxious. OBJECTIVE: Vitals: 03/16/25 1548 BP: 124/76 Pulse: 75 Resp: 16 Temp: 97 ??F (36.1 ??C) SpO2: 98% Physical Exam Constitutional: Appearance: Normal appearance. HENT: Right Ear: Tympanic membrane and ear canal normal. Left Ear: Tympanic membrane and ear canal normal. Mouth/Throat: Mouth: Mucous membranes are moist. Pharynx: No oropharyngeal exudate or posterior oropharyngeal erythema. Eyes: Pupils: Pupils are equal, round, and reactive to light. Cardiovascular: Rate and Rhythm: Normal rate and regular rhythm. Pulses: Dorsalis pedis pulses are 2+ on the right side and 2+ on the left side. Posterior tibial pulses are 2+ on the right side and 2+ on the left side. Heart sounds: No murmur heard. Pulmonary: Breath sounds: Normal breath sounds. No wheezing. Abdominal: General: Bowel sounds are normal. Palpations: Abdomen is soft. Tenderness: There is no abdominal tenderness. Musculoskeletal: General: No tenderness. Normal range of motion. Cervical back: Normal range of motion. No tenderness. Right foot: No deformity. Left foot: No deformity. Feet: Right foot: Protective Sensation: 7 sites tested. 7 sites sensed. Skin integrity: No ulcer or fissure. Toenail Condition: Right toenails are normal. Left foot: Protective Sensation: 7 sites tested. 7 sites sensed. Skin integrity: No ulcer or fissure. Toenail Condition: Left toenails are normal. Skin: General: Skin is warm. Neurological: General: No focal deficit present. Mental Status: He is alert and oriented to person, place, and time. Psychiatric: Mood and Affect: Mood normal. Office Visit on 03/16/2025 Component Date Value Ref Range Status Glucose Blood, POC 03/16/2025 105 60 - 200 mg/dL Final QC Media Lot # 03/16/2025 [id number] Final Lot# Expiration Date 03/16/2025 113,025 Final Hemoglobin A1C 03/16/2025 7.2 (A) 4.0 - 5.7 % Final QC Media Lot # 03/16/2025 [id number] Final Lot# Expiration Date 03/16/2025 41,627 Final Problem List Items Addressed This Visit Tiredness - Primary Unchanged with holding statin, he is back on Crestor He may be related to untreated RAJEEV (patient has diagnosis many years ago but could not continue with CPAP as it was not covered by insurance) or chronic pain from OA Order arthritis labs and x-ray + sleep study Advised tight control of diabetes, weight reduction Follow-up with me in 2 months Obstructive sleep apnea syndrome Untreated, neither the study or CPAP are covered by insurance. Will order sleep study again and try to appeal to insurance to have this done so that we can properly diagnose and treat to decrease morbidity and mortality. Counseled regarding weight reduction, sleep hygiene Will consider Zepbound if symptoms not improve and test cannot be done, may need to adjust some of the diabetes medications Relevant Orders Polysomnography Acute pain of left shoulder Most likely related to OA, order x-rays Take meloxicam daily and diclofenac as needed, follow-up in 2 months, if no improvement will refer to PT Relevant Medications meloxicam (Mobic) 15 MG tablet Other Relevant Orders ANTONIA Screen,IFA, with Reflex to Titer and Pattern Sed Rate by Modified Westergren C-reactive Protein Rheumatoid Factor Hepatitis Panel, General Creatine Kinase, Total Aldolase Cyclic Citrullinated Peptide (CCP) Antibody (IgG) Anti-DNAse B antibody Vitamin D, 25-Hydroxy, Total, Immunoassay XR Shoulder 2+ Views Left Joint pain Polyarthralgias, probably related to OA. Order labs to rule out inflammatory arthritis Start meloxicam daily x 2 weeks and take Tylenol as needed breakthrough pain Unclear if symptoms are exacerbated due to untreated RAJEEV, see below Relevant Medications meloxicam (Mobic) 15 MG tablet Other Relevant Orders ANTONIA Screen,IFA, with Reflex to Titer and Pattern Sed Rate by Modified Westergren C-reactive Protein Rheumatoid Factor Uric acid CBC auto differential Creatine Kinase, Total Aldolase Cyclic Citrullinated Peptide (CCP) Antibody (IgG) Anti-DNAse B antibody Vitamin D, 25-Hydroxy, Total, Immunoassay Type 2 diabetes mellitus without complication (CMS/HCC) Fairly controlled, A1c is at goal. Continue Lantus 30 units/D+ metformin Check fgstk 2x daily Encouraged physical activity as tolerated. FU in 3 months. Order labs Relevant Orders POCT Glucose (Completed) POCT Hgb A1c (Completed) Encounter for colorectal cancer screening Referral was made earlier this year, patient is awaiting appointment from GI Follow Up: Medications Ordered Prior to Encounter[3] [1] Patient Active Problem List Diagnosis Acquired hypothyroidism Anemia Benign prostatic hyperplasia Essential hypertension Gastroesophageal reflux disease Hypertriglyceridemia Lateral epicondylitis of left elbow Obstructive sleep apnea syndrome 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) Recurrent major depression in partial remission (CMS/HCC) Steatosis of liver Type 2 diabetes mellitus without complication (CMS/HCC) Dental plaque Encounter for preventive health examination Primary open angle glaucoma (POAG) of both eyes, mild stage Incipient cataract Congenital ectropion uveae Plantar ulcer of right foot, limited to breakdown of skin (CMS/HCC) Right foot pain Plantar fasciitis of right foot Myalgia Calcaneal spur Localized gingival recession Missing teeth, acquired Polyp of colon Tiredness Vitamin D deficiency Acute pain of left shoulder Joint pain Encounter for colorectal cancer screening [2] Family History Problem Relation Name Age of Onset Glaucoma Sister [3] Current Outpatient Medications on File Prior to Visit Medication Sig Dispense Refill aspirin 81 MG EC tablet Take 1 tablet (81 mg) by mouth Once per day. 90 tablet 3 buPROPion XL (Wellbutrin XL) 300 MG 24 hr tablet TAKE 1 TABLET BY MOUTH EVERY MORNING 30 tablet 5 carBAMazepine XR (TEGretol XR) 100 MG 12 hr tablet Take 1 tablet (100 mg) by mouth 2 times daily. Do not crush, chew, or split. 60 tablet 5 dilTIAZem SR (Cardizem SR) 120 MG 12 hr capsule TAKE 1 CAPSULE BY MOUTH EVERY EVENING 30 capsule 5 ergocalciferol (Vitamin D2) 1.25 MG (33941 UT) capsule Take 1 capsule (1.25 mg) by mouth 1 (one) time per week. (Patient not taking: Reported on 02/10/2025) 12 capsule 1 FREESTYLE LITE test strip TEST BLOOD SUGAR THREE TIMES DAILY 100 strip 11 glucose (Glutose) 40 % gel oral gel Take 15 g by mouth if needed for low blood sugar. 60 g 3 insulin glargine (Lantus SoloStar) 100 UNIT/ML pen INJECT 30 UNITS SUBCUTANEOUSLY EVERY MORNING 15 mL 11 latanoprost (Xalatan) 0.005 % ophthalmic solution PLACE 1 DROP IN EACH EYE EVERY DAY AT BEDTIME 2.5mL 11 levothyroxine (Synthroid, Levoxyl) 75 MCG tablet TAKE 1 TABLET BY MOUTH EVERY MORNING 30 tablet 5 loratadine (Claritin) 10 MG tablet TAKE 1 TABLET BY MOUTH EVERY MORNING 90 tablet 1 losartan-hydroCHLOROthiazide (Hyzaar) 100-25 MG tablet TAKE 1 TABLET BY MOUTH EVERY MORNING 30 tablet 5 metFORMIN (Glucophage) 850 MG tablet TAKE 1 TABLET BY MOUTH TWICE DAILY IN THE MORNING AND IN THE EVENING WITH FOOD 60 tablet 5 omega-3 (Fish Oil) 1000 MG capsule 2 capsules once daily OTC omeprazole (PriLOSEC) [address] capsule Take 1 capsule (20 mg) by mouth before breakfast. Do not crush or chew. 90 capsule 2 pen needle 33G x 4 mm [facility] Use as instructed 100 each 12 prazosin (Minipress) 2 MG capsule Take 1 capsule (2 mg) by mouth at bedtime. 90 capsule 2 rosuvastatin (Crestor) 10 MG tablet TAKE 1 TABLET BY MOUTH AT BEDTIME 90 tablet 3 [DISCONTINUED] latanoprost (Xalatan) 0.005 % ophthalmic solution Administer 1 drop into both eyes at bedtime. 2.5 mL 11 [DISCONTINUED] rosuvastatin (Crestor) 10 MG tablet Take 1 tablet (10 mg) by mouth at bedtime. 90 tablet 3 No current facility-administered medications on file prior to visit. documented in this encounter Miscellaneous Notes * Assessment & Plan Note - Antonia Ovalle MD - 03/16/2025 5:26 PM EDT Associated Problem(s): Encounter for colorectal cancer screening Referral was made earlier this year, patient is awaiting appointment from GI * Assessment & Plan Note - Antonia Ovalle MD - 03/16/2025 5:25 PM EDT Associated Problem(s): Tiredness Unchanged with holding statin, he is back on Crestor He may be related to untreated RAJEEV (patient has diagnosis many years ago but could not continue with CPAP as it was not covered by insurance) or chronic pain from OA Order arthritis labs and x-ray + sleep study Advised tight control of diabetes, weight reduction Follow-up with me in 2 months * Assessment & Plan Note - Antonia Ovalle MD - 03/16/2025 5:24 PM EDT Associated Problem(s): Obstructive sleep apnea syndrome Untreated, neither the study or CPAP are covered by insurance. Will order sleep study again and try to appeal to insurance to have this done so that we can properly diagnose and treat to decrease morbidity and mortality. Counseled regarding weight reduction, sleep hygiene Will consider Zepbound if symptoms not improve and test cannot be done, may need to adjust some of the diabetes medications * Assessment & Plan Note - Antonia Ovalle MD - 03/16/2025 5:23 PM EDT Associated Problem(s): Acute pain of left shoulder Most likely related to OA, order x-rays Take meloxicam daily and diclofenac as needed, follow-up in 2 months, if no improvement will refer to PT * Assessment & Plan Note - Antonia Ovalle MD - 03/16/2025 5:23 PM EDT Associated Problem(s): Joint pain Polyarthralgias, probably related to OA. Order labs to rule out inflammatory arthritis Start meloxicam daily x 2 weeks and take Tylenol as needed breakthrough pain Unclear if symptoms are exacerbated due to untreated RAJEEV, see below * Assessment & Plan Note - Antonia Ovalle MD - 03/16/2025 5:22 PM EDT Associated Problem(s): Type 2 diabetes mellitus without complication (CMS/HCC) Fairly controlled, A1c is at goal. Continue Lantus 30 units/D+ metformin Check fgstk 2x daily Encouraged physical activity as tolerated. FU in 3 months. Order labs documented in this encounter Plan of Treatment Upcoming Encounters Date Type Department Care Team (Late st Contact Info) Description 06/01/2025 2:00 PM EST Office Visit [facility] [address] [place] [phone] Antonia Ovalle MD [address] [place] [address] 06/22/2025 3:30 PM EST Office Visit [facility] [address] [place] [address] Lorena Scott, OD [address] [place] [address] Scheduled Orders Name Type Priority Associated Diagnoses Orde r Schedule ANTONIA Screen,IFA, with Reflex to Titer and Pattern Lab Routine Acute pain of left shoulder Pain in other joint Expected: 03/16/2025 (Approximate), Expires: 03/16/2026 Sed Rate by Modified Westergren Lab Routine Acute pain of left shoulder Pain in other joint Expected: 03/16/2025 (Approximate), Expires: 03/16/2026 Hepatitis Panel, General Lab Routine Acute pain of left shoulder Expected: 03/16/2025 (Approximate), Expires: 03/16/2026 Aldolase Lab Routine Acute pain of left shoulder Pain in other joint Expected: 03/16/2025 (Approximate), Expires: 03/16/2026 Cyclic Citrullinated Peptide (CCP) Antibody (IgG) Lab Routine Acute pain of left shoulder Pain in other joint Expected: 03/16/2025 (Approximate), Expires: 03/16/2026 Anti-DNAse B antibody Lab Routine Acute pain of left shoulder Pain in other joint Expected: 03/16/2025 (Approximate), Expires: 03/16/2026 [facility] Routine Obstructive sleep apnea syndrome Expected: 03/16/2025 (Approximate), Expires: 03/16/2026 documented as of this encounter Goals Goal Patient Goal Type Associated Problems Recent Progress Patient-Stated? Author Blood Pressure < 140/90 Blood Pressure 124/76( 025 3:48 PM EDT) No Joshua Black, PharmD documented as of this encounter Procedures Procedure Name Priority Date/Time Associated Diagnosis Comments XR SHOULDER 2+ VIEWS LEFT Routine 03/19/2025 3:04 PM EDT Acute pain of left shoulder VITAMIN D,25-OH,TOTAL,IA Routine 03/19/2025 1:52 PM EDT Acute pain of left shoulder Pain in other joint CBC WITH AUTO DIFFERENTIAL Routine 03/19/2025 1:52 PM EDT Pain in other joint RHEUMATOID FACTOR Routine 03/19/2025 1:5 2 PM EDT Acute pain of left shoulder Pain in other joint C-REACTIVE PROTEIN Routine 03/19/2025 1: 52 PM EDT Acute pain of left shoulder Pain in other joint URIC ACID Routine 03/19/2025 1:52 PM EDT Pain in other joint CREATINE KINASE, TOTAL Routine 03/19/2025 1:52 PM EDT Acute pain of left shoulder Pain in other joint POCT GLYCATED HEMOGLOBIN, TOTAL Routine 03/16/2025 4:17 PM EDT Type 2 diabetes mellitus without complication, with long-term current use of insulin ([facility]) POCT GLUCOSE Routine 03/16/2025 4:17 PM EDT Type 2 diabetes mellitus without complication, with long-term current use of insulin ([facility]) documented in this encounter Results * XR Shoulder 2+ Views Left (03/19/2025 3:04 PM EDT) Anatomical Region Laterality Modality Upper Extremities, Shoulder Left Radi ographic Imaging 03/19/2025 3:04 PM EDT Narrative 03/19/2025 3:17 PM EDT [place] [id number] XRay Report Signed Patient: Isaac Bonilla MR#: [id number] 47 : 1960 Acct:[id number] Age/Sex: 64 / M ADM Date: 03/19/25 Loc: [facility] Attending Dr: Antonia Ovalle MD Ordering Physician: Antonia Ovalle MD Date of Service: 03/19/25 Procedure(s): XR shoulder LT min 2V Accession Number(s): [id number] cc: Antonia Ovalle MD Reason for Exam: left shoudler pain/decreased mov EXAMINATION: XR SHOULDER, LEFT CLINICAL INFORMATION: left shoudler pain/decreased mov COMPARISON: None available. TECHNIQUE: AP external rotation, Grashey, scapular Y, and axillary views of the left shoulder. FINDINGS: Minute marginal osteophytes are present in the inferior glenoid and medial humeral head. The AC joint is intact and appears unremarkable otherwise. There is no dislocation. There is no sign of fracture. XR/XR shoulder LT min 2V IMPRESSION: Minimal degenerative change, no acute abnormality. Electronically signed by: Florian Zapata MD 03/19/2025 03:14 PM EDT RP Dictated By: Florian Zapata MD Signed By: <Electronically signed by Florian Zapata MD in OV> 03/19/25 1514 DD/ 1504 TD/TT: 03/19/25 1505 [employer] Certified Network Associate: Procedure Note Donotuseinterpreter, Image - 03/19/[address] [address] XRay Report Signed Patient: Isaac BonillaMR#: [id number] 48 : 1960cct:[id number] Age/Sex: 64 / MADM Date: 03/19/25 Loc: HO.[facility] Attending Dr: Antonia Ovalle MD Ordering Physician: Antonia Ovalle MD Date of Service: 03/19/25 Procedure(s): XR shoulder LT min 2V Accession Number(s): [id number] cc: Antonia Ovalle MD Reason for Exam: left shoudler pain/decreased mov EXAMINATION: XR SHOULDER, LEFT CLINICAL INFORMATION: left shoudler pain/decreased mov COMPARISON: None available. TECHNIQUE: AP external rotation, Grashey, scapular Y, and axillary views of the left shoulder. FINDINGS: Minute marginal osteophytes are present in the inferior glenoid and medial humeral head. The AC joint is intact and appears unremarkable otherwise. There is no dislocation. There is no sign of fracture. XR/XR shoulder LT min 2V IMPRESSION: Minimal degenerative change, no acute abnormality. Electronically signed by: Florian Zapata MD 03/19/2025 03:14 PM EDT Dictated By: Florian Zapata MD Signed By: <Electronically signed by Florian Zapata MD in OV> 03/19/25 1514 DD/ 1504 TD/TT: 03/19/25 150 [employer] Associate: Antonia Ovalle MD IMG XR PROCEDURES Final Result * Vitamin D, 25-Hydroxy, Total, Immunoassay (03/19/2025 1:52 PM EDT) Vitamin D 25-OH Total 66.0 >30 ng/mL [facility] Comment: Health Based Reference Values*< 20 ng/mL Bqrhexung12-32 ng/mL Insufficient> 30 ng/mL Sufficient*Rossi SHEARER. N Engl J Med. 2007;357:266-280There is [...] Vitamin D results fromdifferent laboratories and methodologies. Published datademonstrated that results from patients undergoinghemodialysis may show a negative bias when tested withvarious automated 25-OH vitamin D assays when compared toLC-MS/MS.When testing samples from patients whose predominant form ofVitamin D is Vitamin D2, such as patients receiving VitaminD2 supplementation, results that are subtherapeutic shouldbe confirmed with another method such as LC-MS/MS. Blood 03/19/2025 1:52 PM EDT 03/19/2025 4:03 PM EDT us Antonia Ovalle MD LAB BLOOD ORDERABLES Fin al Result [facility] [address] [place] [phone] * (ABNORMAL) Creatine Kinase, Total (03/19/2025 1:52 PM EDT) Creatine Kinase Total 390(H) 38 - 174 U/L [facility] Blood Venous blood specimen / Unknown 03/19/2025 1:52 PM EDT 03/19/2025 4:03 PM EDT us Antonia Ovalle MD LAB BLOOD ORDERABLES Fin al Result Performing Organization Address City/[facility] [address]/ZIP Co de Phone Number [facility] [address] [place] [phone] * (ABNORMAL) CBC auto differential (03/19/2025 1:52 PM EDT) White Blood Count 6.3 4.8 - 10.8 X10*3/uL [facility] Red Blood Count 4.69 4.60 - 5.80 X10*6/uL [facility] Hemoglobin 13.6(L) 14.0 - 18.0 g/dl [facility] Hematocrit 39.5(L) 42.0 - 52.0 % [facility] Mean Corpuscular Volume 84.2 80.0 - 98.0 fL [facility] Mean Corpuscular Hemoglobin 29.0 27.0 - 33.0 pg [facility] Mean Corpuscular HGB Conc 34.4 31.0 - 36.0 g/dl [facility] Red Cell Distribution Width 13.8 11.0 - 16.0 % [facility] Platelet Count 237 160 - 400 X10*3/uL [facility] Mean Platelet Volume 9.5 9.4 - 12.4 fL [facility] Neutrophils Percent Auto 52.4 45 - 73 % [facility] Imm Gran Pct Auto 0.5(H) 0.0 - 0.4 % [facility] Lymphocytes Percent Auto 33.9 20 - 40 % [facility] Monocytes Percent Auto 9.4 2 - 11 % [facility] Eosinophils Percent Auto 3.2 0 - 4 % [facility] Basophils Percent Auto 0.6 0 - 2 % [facility] NRBC Pct Auto 0.0 0.0 - 0.2 /100WBC [facility] Neutrophils Absolute Auto 3.3 2.0 - 8.3 x10*3/uL [facility] Imm Gran Abs Auto 0.03 0.00 - 0.03 X10*3/uL [facility] Lymphocytes Absolute Auto 2.1 1.2 - 4.9 X10*3/uL [facility] Monocytes Absolute Auto 0.6 0.1 - 1.2 X10*3/uL [facility] Eosinophils Absolute Auto 0.2 0.0 - 0.4 X10*3/uL [facility] Basophils Absolute Auto 0.0 0.0 - 0.2 X10*3/uL [facility] NRBC Abs Auto 0.000 0.0 - 0.012 X10*3/uL [facility] Blood Venous blood specimen / Unknown 03/19/2025 1:52 PM EDT 03/19/2025 4:03 PM EDT Antonia Ovalle MD LAB BLOOD ORDERABLES Fin al Result [facility] [address] [place] [phone] * Uric acid (03/19/2025 1:52 PM EDT) Uric Acid 5.9 3.4 - 7.0 mg/dL [facility] Blood Venous blood specimen / Unknown 03/19/2025 1:52 PM EDT 03/19/2025 4:03 PM EDT Antonia Ovalle MD LAB BLOOD ORDERABLES Fin al Result Performing Organization Address [facility] [address]/[facility] Co de Phone Number [facility] [address] [place] [phone] * Rheumatoid Factor (03/19/2025 1:52 PM EDT) Rheumatoid Factor <13.0 <15.0 IU/mL [facility] [facility] Blood Venous blood specimen / Unknown 03/19/2025 1:52 PM EDT 03/19/2025 4:03 PM EDT Antonia Ovalle MD LAB BLOOD ORDERABLES Fin al Result Performing Organization Address [facility] [address]/[facility] [facility] Co de Phone Number [facility] [address] [place] [phone] * C-reactive Protein (03/19/2025 1:52 PM EDT) C Reactive Protein 0.12 < or = 0.50 mg/dL [facility] Blood Venous blood specimen / Unknown 03/19/2025 1:52 PM EDT 03/19/2025 4:03 PM EDT Antonia Ovalle MD LAB BLOOD ORDERABLES Fin al Result [facility] [address] [place] [phone] * (ABNORMAL) POCT Hgb A1c (03/16/2025 4:17 PM EDT) Pathologist [facility] Hemoglobin A1C 7.2(A) 4.0 - 5.7 % QC Media Lot # [id number] Lot# Expiration Date [id number] Blood 03/16/2025 4:17 PM EDT Antonia Ovalle MD POINT OF CARE TEST ENTER /EDIT ORDERABLES Final Result * POCT Glucose (03/16/2025 4:17 PM EDT) Glucose Blood, POC 105 60 - 200 mg/dL QC Media Lot # [id number] Lot# Expiration Date [id number] Blood Capillary blood specimen / Unknown 03/16/2025 4:17 PM EDT Antonia Ovalle MD POINT OF CARE TEST ENTER /EDIT ORDERABLES Final Result documented in this encounter Visit Diagnoses Diagnosis Tiredness- Primary Other malaise and fatigue Obstructive sleep apnea syndrome Obstructive sleep apnea (adult) (pediatric) Acute pain of left shoulder Pain in other joint Type 2 diabetes mellitus without complication, with long-term current use of insulin ([facility]) Encounter for colorectal cancer screening documented in this encounter Additional Health Concerns Assessment Noted Time PHQ-9 Depression Total Score: 6 02/20/20 23 4:22 PM EDT documented as of this encounter Care Teams [employer] Worker Relationship Specialty Start Date End Date Antonia Ovalle MD [address] [place] [address] PCP - General Family Medicine 02/27/19 Joshua Black, Luisa [address] [place] [address] Pharmacist Internal Medicine 10/16/22 documented as of this encounter
--- NOTE | ~2025-03-19 | XR_ITS ---
EXAMINATION: XR SHOULDER, LEFT CLINICAL INFORMATION: left shoudler pain/decreased mov COMPARISON: None available. TECHNIQUE: AP external rotation, Grashey, scapular Y, and axillary views of the left shoulder. FINDINGS: Minute marginal osteophytes are present in the inferior glenoid and medial humeral head. The AC joint is intact and appears unremarkable otherwise. There is no dislocation. There is no sign of fracture. XR/XR shoulder LT min 2V IMPRESSION: Minimal degenerative change, no acute abnormality. Electronically signed by: Florian Zapata MD 03/19/2025 03:14 PM EDT
--- OUTSIDE RECORDS SUMMARY | 2025-03-19 14:30 | XMS_ITS | Encounter Summary ---
Author Organization [facility] [employer] Address [address] [facility] [address] [place] [address] Care Team Providers Care Lotus Notes Developer Name Role Phone Antonia Ovalle MD Primary Care Provider + Joshua Black PharmD Unavailable [phone] Reason for Referral * Consultation (Routine) - Pending Review Specialty Diagnoses / Procedures Referred By Anna Marie edmond Referred To Contact Ophthalmology Diagnoses Anatomical narrow angle of both eyes Lorena Scott, OD [address] [place] [address] Phone: tel: fax: Vernon Briggs [address] [place] [phone] Phone: tel: Referral ID Status Reason Start Date Expiration Date Visits Requested Visits Authorized [id number] Pending Review Specialty Services Required 03/19/2025 03/19/2026 1 1 Encounter Details Date Type Department Care Team (Late st Contact Info) Description 03/19/2025 2:30 PM EDT Office Visit [facility] OPTOMETRY [address] [place] [address] Lorena Scott OD [address] [place] [address] Anatomical narrow angle of both eyes (Primary Dx); Primary open angle glaucoma (POAG) of both eyes, mild stage Social History Tobacco Use Types Packs/Day Years [...] Description 06/01/2025 2:00 PM EST Office Visit [facility] MEDICINE [address] [place] [address] Antonia Ovalle MD [address] [place] [address] 06/22/2025 3:30 PM EST Office Visit [facility] OPTOMETRY [address] [place], [place] [phone] Lorena Scott, OD [address] [place], [place] [phone] Scheduled Referrals Name Type Priority Associated Diagnoses Order Schedule Referral to Ophthalmology Outpatient Referral Routine Anatomical narrow angle of both eyes Expected: 03/19/2025 (Approximate), Expires: 03/19/2026 documented as of this encounter Goals Goal Patient Goal Type Associated Problems Recent Progress Patient-Stated? Author Blood Pressure < 140/90 Blood Pressure 124/76( 025 3:48 PM EDT) No Joshua Black, PharmD documented as of this encounter Visit Diagnoses Diagnosis Anatomical narrow angle of both eyes- Primary Primary open angle glaucoma (POAG) of both eyes, mild stage documented in this encounter Additional Health Concerns Assessment Noted Time PHQ-9 Depression Total Score: 6 02/20/20 23 4:22 PM EDT documented as of this encounter Care Teams Lotus Notes Developer Relationship Specialty Start Date End Date Antonia Ovalle MD [address] [place], [place] [phone] PCP - General Family Medicine 02/27/19 Joshua Black, PharmD [address] [place] [address] Pharmacist Internal Medicine 10/16/22 documented as of this encounter
[2025-03-19 16:10] LABS: MANUAL DIFF FLAG NO
[2025-03-19 16:32] LABS: Hematocrit 39.5 % (42.0-52.0); Hemoglobin 13.6 g/dl (14.0-18.0); Imm Gran Abs Auto 0.03 X10*3/uL (0.00-0.03); Imm Gran Pct Auto 0.5 % (0.0-0.4); Lymphocytes Absolute Auto 2.1 X10*3/uL (1.2-4.9); Mean Corpuscular HGB Conc 34.4 g/dl (31.0-36.0); Mean Corpuscular Hemoglobin 29.0 pg (27.0-33.0); Mean Corpuscular Volume 84.2 fL (80.0-98.0); NRBC Abs Auto 0.000 X10*3/uL (0.0-0.012); NRBC Pct Auto 0.0 /100WBC (0.0-0.2); Platelet Count 237 X10*3/uL (160-400); Red Blood Count 4.69 X10*6/uL (4.60-5.80); White Blood Count 6.3 X10*3/uL (4.8-10.8)
[2025-03-19 16:37] LABS: Uric Acid 5.9 mg/dL (3.4-7.0)
--- OUTSIDE RECORDS SUMMARY | 2025-03-19 17:14 | XMS_ITS | Encounter Summary ---
Author Organization [facility] Address [address] [place] [address] [place] [phone] Phone Care Team Providers Care Radio Sportscaster Name Role Phone Antonia Ovalle MD Primary Care Provider + Encounter Details Date Type Department Care Team (Late st Contact Info) Description 07/02/2021 Procedure [facility], Ct Scan - [address] [address] Social History Tobacco Use Types Packs/Day Years Used Date Smoking Tobacco: Never Smokeless Tobacco: Never Alcohol Use Standard Drinks/Week Comments Not Currently 0 (1 standard drink = 0.6 oz pur e alcohol) Sex and Gender Information Value Date Recorded Sex Assigned at Male 07/02/2021 3:23 PM EST Legal Sex Male 9:46 PM EDT Gender Identity Male 07/02/2021 3:23 PM EST Sexual Orientation Not on file documented as of this encounter Functional Status * Calculated C-SSRS Risk Score (Lifetime/Recent) Answer Date of Assessment Author No Risk Indicated 07/02/2021 3:23 PM Gay Singleton RN * Hall Suicide Severity Rating Scale (Screener/Recent Self-Report) Question Answer Date of Assessment Author 1. Wish to be (Past 1 Month) No 07/02/2021 3:23 PM Charlotte Edwards RN 2. Non-Specific Active Suicidal Thoughts (Past 1 Month) No 07/02/2021 3:23 PM Charlotte Edwards RN 6. Suicidal Behavior (Lifetime) No 07/02/2021 3:23 PM EST Pablo, Stac ie F, RN documented as of this encounter Plan of Treatment Not on file documented as of this encounter Visit Diagnoses Not on filedocumented in this encounter Care Teams Radio Sportscaster Relationship Specialty Start Date End Date Antonia Ovalle MD [address] [place] [phone] PCP - General Internal Medicine 07/06/21 documented as of this encounter Additional Source Comments The information contained in this document represents components of the legal health record. It is not the complete legal health record.[facility]
--- OUTSIDE RECORDS SUMMARY | 2025-03-19 17:14 | XMS_ITS | Encounter Summary ---
Author Organization [employer] Address [address] [facility] [address] [place] [address] Care Team Providers Care Tube Bender Hand Name Role Phone Antonia Ovalle MD Primary Care Provider + Joshua Black PharmD Unavailable Encounter Details Date Type Department Care Team (Latest Contact Info) Description 01/05/2021 Abstract [facility] CONVERSIONS Dental, Provider, DDS Social History [...] 06/01/2025 2:00 PM EST Office Visit [facility] MEDICINE [address] [place] [address] Antonia Ovalle MD [address] [place] [address] 06/22/2025 3:30 PM EST Office Visit [facility] OPTOMETRY [address] [place] [address] Lorena Scott, OD [address] [place] [address] documented as of this encounter Visit Diagnoses Not on filedocumented in this encounter Care Teams Tube Bender Hand Relationship Specialty Start Date End Date Antonia Ovalle MD [address] [place] [address] PCP - General Family Medicine 02/27/19 Joshua Black, NathalieD [address] [place] [address] Pharmacist Internal Medicine 10/16/22 documented as of this encounter
--- OUTSIDE RECORDS SUMMARY | 2025-03-19 17:14 | XMS_ITS | Clinical Summary ---
Author Organization [employer] Address [address] [place] [address] Care Team Providers Care Front End Ui Developer Name Role Phone Antonia Ovalle MD Primary Care Provider + Joshua Black PharmD Unavailable [phone] Allergies Active Allergy Reactions Criticality Noted Date Comments Gramineae Pollens Itching 01/31/2022 Pork (Porcine) Protein Hives 07/02/2021 Shellfish Allergy 01/25/2023 Medications omega-3 (Fish Oil) 1000 MG capsule 2 capsules once daily OTC Active glucose (Glutose) 40 % gel oral gelIndications:T ype 2 diabetes mellitus without complication, with long-term current use of insulin ([facility]) Take 15 g by mouth if needed for low blood sugar. 60 g 3 023 Active aspirin 81 MG EC tablet Take 1 tablet (81 mg) by mouth Once per day. 90 tablet 3 024 Active omeprazole (PriLOSEC) [address] capsuleIndicatio ns:Gastroesophag eal reflux disease without esophagitis Take 1 capsule (20 mg) by mouth before breakfast. Do not crush or chew. 90 capsule 2 025 Active prazosin (Minipress) 2 MG capsuleIndicatio ns:Benign prostatic hyperplasia without lower urinary tract symptoms Take 1 capsule (2 mg) by mouth at bedtime. 90 capsule 2 025 Active pen needle 33G x 4 mm misc Use as instructed 100 each 12 025 2025 Active ergocalciferol (Vitamin D2) 1.25 MG (72814 UT) capsule Take 1 capsule (1.25 mg) by mouth 1 (one) time per week. 12 capsule 1 025 2024 Active Additional Information Patient not taking.Reason: Pt states not taking, Reported on 02/10/2025 insulin glargine (Lantus SoloStar) 100 UNIT/ML penIndications:T ype 2 diabetes mellitus without complication, with long-term current use of insulin ([facility]) INJECT 30 UNITS SUBCUTANEOUSLY EVERY MORNING 15 mL Active dilTIAZem SR (Cardizem SR) 120 MG 12 hr capsuleIndicatio ns:Primary hypertension TAKE 1 CAPSULE BY MOUTH EVERY EVENING 30 capsule Active losartan-hydroCH LOROthiazide (Hyzaar) 100-25 MG tabletIndication s:Primary hypertension TAKE 1 TABLET BY MOUTH EVERY MORNING 30 tablet Active buPROPion XL (Wellbutrin XL) 300 MG 24 hr tabletIndication s:Anxiety TAKE 1 TABLET BY MOUTH EVERY MORNING 30 tablet 025 Active FREESTYLE LITE test stripIndications :Type 2 diabetes, diet controlled ([facility]) TEST BLOOD SUGAR THREE TIMES DAILY 100 strip 025 Active loratadine (Claritin) 10 MG tabletIndication s:Chronic rhinitis TAKE 1 TABLET BY MOUTH EVERY MORNING 90 tablet 1 025 Active rosuvastatin (Crestor) 10 MG tabletIndication s:Mixed hyperlipidemia TAKE 1 TABLET BY MOUTH AT BEDTIME 90 tablet 3 025 Active carBAMazepine XR (TEGretol XR) 100 MG 12 hr tablet Take 1 tablet (100 mg) by mouth 2 times daily. Do not crush, chew, or split. 60 tablet 025 Active levothyroxine (Synthroid, Levoxyl) 75 MCG tablet TAKE 1 TABLET BY MOUTH EVERY MORNING 30 tablet 025 Active metFORMIN (Glucophage) 850 MG tablet TAKE 1 TABLET BY MOUTH TWICE DAILY IN THE MORNING AND IN THE EVENING WITH FOOD 60 tablet 025 Active latanoprost (Xalatan) 0.005 % ophthalmic solution PLACE 1 DROP IN EACH EYE EVERY DAY AT BEDTIME 2.5 mL 025 Active meloxicam (Mobic) 15 MG tablet Take 1 tablet (15 mg) by mouth Once per day. 30 tablet 025 2025 Active Diclofenac Sodium 1 % gel Apply 1 inch topically if needed in the morning and at bedtime (Pain). 60 g 025 2024 Active latanoprost (Xalatan) 0.005 % ophthalmic solution Administer 1 drop into both eyes at bedtime. 2.5 mL 11 024 2024 Discontinued metFORMIN (Glucophage) 850 MG tablet TAKE 1 TABLET BY MOUTH TWICE DAILY IN THE MORNING AND IN THE EVENING WITH FOOD 60 tablet 5 025 2024 Discontinued rosuvastatin (Crestor) 10 MG tabletIndication s:Mixed hyperlipidemia Take 1 tablet (10 mg) by mouth at bedtime. 90 tablet 3 025 2024 Discontinued(D uplicate order (will not trigger notification to Pharmacy)) Active Problems Problem Noted Date Diagnosed Date Acute pain of left shoulder 03/16/2025 Assessment & Plan (03/16/2025 5:23 PM EDT): Most likely related to OA, order x-rays Take meloxicam daily and diclofenac as needed, follow-up in 2 months, if no improvement will refer to PT Joint pain 03/16/2025 Assessment & Plan (03/16/2025 5:23 PM EDT): Polyarthralgias, probably related to OA. Order labs to rule out inflammatory arthritis Start meloxicam daily x 2 weeks and take Tylenol as needed breakthrough pain Unclear if symptoms are exacerbated due to untreated RAJEEV, see below Encounter for colorectal cancer screening 2024 Assessment & Plan (03/16/2025 5:26 PM EDT): Referral was made earlier this year, patient is awaiting appointment from GI Vitamin D deficiency 10/07/2024 Polyp of colon 10/01/2024 Overview (10/01/2024): Colonoscopy at [facility] on 2018 Assessment & Plan (10/01/2024 7:29 PM EDT): S/p colonoscopy on 2019 at [facility] Tiredness 10/01/2024 Assessment & Plan (03/16/2025 5:25 PM EDT): Unchanged with holding statin, he is back on Crestor He may be related to untreated RAJEEV (patient has diagnosis many years ago but could not continue with CPAP as it was not covered by insurance) or chronic pain from OA Order arthritis labs and x-ray + sleep study Advised tight control of diabetes, weight reduction Follow-up with me in 2 months Assessment & Plan (10/01/2024 7:37 PM EDT): [...] arch support Myalgia 12/06/2023 Assessment & Plan (02/06/2025 2:49 PM EDT): Restart Crestor and recheck CPKs Take Tylenol, advised regarding increasing exercise slowly, it may be deconditioning and patient slowly losing muscle mass due to age. 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 FU with ophthalmology at [facility] for glaucoma FU. CRC screen: Overdue, will [...] due January 2023. FU with ophthalmology at [facility] for glaucoma FU. CRC screen: Up to [...] elbow 08/25/2022 Obstructive sleep apnea syndrome 08/25/2022 Assessment & Plan (03/16/2025 5:24 PM EDT): Untreated, neither the study or CPAP are [...] to adjust some of the diabetes medications Polyneuropathy due to type 2 diabetes mellitus 0 08/25/2022 Recurrent major depression in partial remission 08/25/2022 Steatosis of liver 08/25/2022 Type 2 diabetes mellitus without complication Assessment & Plan (03/16/2025 5:22 PM EDT): Fairly controlled, A1c is at goal. Continue Lantus 30 units/D+ metformin Check fgstk 2x daily Encouraged physical activity as tolerated. FU in 3 months. Order labs Assessment & Plan (02/06/2025 2:49 PM EDT): Controlled, A1c is at goal and no further episodes hypoglycemia. Continue Lantus 30 units/D+ metformin Check fgstk 2x daily Encouraged physical activity as tolerated. FU in 3 months. Order labs Assessment & Plan (10/01/2024 7:33 PM EDT): [...] COMA, WITH LONG-TERM CURRENT USE OF INSULIN ([facility]) WRITTEN ON 11/27/2022 5:33 PM BY PATTI [...] Encounters Date Type Department Care Team Description 03/19/2025 2:30 PM EDT Office Visit [facility] [address] [place] [phone] TarLorena madrid, OD Anatomical narrow angle of both eyes (Primary Dx); Primary open angle glaucoma (POAG) of both eyes, mild stage 03/19/2025 Travel 03/16/2025 4:00 PM EDT Office Visit [facility] [address] [place] [address] Antonia Ovalle MD Tiredness (Primary Dx); Obstructive sleep apnea syndrome; Acute pain of left shoulder; Pain in other joint; Type 2 diabetes mellitus without complication, with long-term current use of insulin ([facility]); Encounter for colorectal cancer screening 03/16/2025 Travel 03/13/2025 Telephone [facility] [address] [place] [address] Antonia Ovalle MD Chart Prep 03/12/2025 Travel 03/09/2025 Travel 03/07/2025 Refill [facility] [address] [place] [address] Saray Shepherd, OD 03/05/2025 Patient Outreach [facility] [address] [place] [address] Antonia Ovalle MD Pre-visit Planning ([facility] screening completed on 11/11/2024) 02/23/2025 Refill [facility] [address] [place] [address] Antonia Ovalle MD 02/12/2025 Refill [facility] [address] [place] [phone] Antonia Ovalle MD 02/10/2025 3:00 PM EDT Office Visit [facility] [address] [place] [address] Russell, Christa Missing teeth, acquired (Primary Dx); Dental plaque 01/22/2025 Refill [facility] [address] [place] [address] Antonia Ovalle MD Mixed hyperlipidemia 01/20/2025 Refill [facility] [address] [place] [address] Antonia Ovalle MD 01/19/2025 Refill [facility] [address] [place] [address] Antonia Ovalle MD Mixed hyperlipidemia 01/11/2025 Refill [facility] [address] [place] [address] Antonia Ovalle MD Chronic rhinitis 12/29/2024 Refill [facility] [address] [place] [address] Antonia Ovalle MD Type 2 diabetes, diet controlled ([facility]) 12/18/2024 Telephone [facility] [address] [place] [address] Antonia Ovalle MD March recall from Last 3 Months Immunizations Immunization Administration Dates Next Due Hep B, adult [...] Family History Medical History Relation Name Comments Diabetes Brother Diabetes Mother Diabetes Sister Glaucoma Sister Relation Name Status Comments Brother Mother Sister Social History Tobacco Use Types Packs/Day [...] Mass Index 28.46 03/16/2025 3:48 PM EDT Plan of Treatment Upcoming Encounters Date Type Department Care Team (Late st Contact Info) Description 06/01/2025 2:00 PM EST Office Visit [facility] [address] [place] [address] Antonia Ovalle MD [address] [place] [address] 06/22/2025 3:30 PM EST Office Visit [facility] [address] [place] [address] Sonia Lorena, OD [address] [place] [address] Health Maintenance Due Date Last Done Comments Anal Pap 1961 CT Colonography 1961 FIT DNA/Cologuard 1961 FIT 1961 FOBT 1960 Sigmoidoscopy 1961 Alcohol/Substance Use Screening 1973 Hepatitis A Vaccines (1 of 2 - Risk 2-dose series) 1980 Colonoscopy 01/31/2024 01/30/2019 Colorectal Cancer Screening 01/31/2024 Depression Screening 02/20/2024 02/19/2023, 02/20/20 23 Influenza Vaccine (#1) 2025 , 04/09/2023, 05/04/2022, Additional history exists Diabetes: Hemoglobin A1C 06/15/2025 025, 09/29/2024, 06/12/2024, Additional history exists Dental X-Ray: Full Mouth 06/16/2025 06/15/2022 Dental Oral Exam 08/14/2025 02/10/2025, , 06/15/2022 Dental Prophylaxis 08/14/2025 02/10/2025, 0 08/11/2024, 02/07/2024, Additional history exists Diabetes: Urine Protein Screening 10/04/2025 10/04/2024, 10/23/2023, 12/15/2021, Additional history exists Lipid Panel 10/04/2025 10/04/2024, 0412/2023, 06/29/2022, Additional history exists SDOH Screening 11/11/2025 11/11/2024 Eye Exam 01/30/2026 03/19/2025, 03/09, 03/19/2025, Additional history exists Dental X-Ray: Bitewings 02/11/2026 02/11/20, 02/07/2024, 06/15/2022 Disability Screening 03/09/2026 03/09/2025 Diabetes: Foot Exam 03/16/2026 03/16/2025, 03/16/2025, 03/16/2025, Additional history exists Tobacco Screening 03/16/2026 03/16/2025 DTaP/Tdap/Td Vaccines (2 - Td or Tdap) 07/19/2030 07/19/2020, 01/17/2010, 01/17/2010 Zoster Vaccines Completed 06/23/2020, 04/21/2020 Hepatitis [...] patient's age to complete this topic Meningococcal B Vaccine Aged Out No l onger eligible based on patient's age to complete [...] 3:48 PM EDT) No Joshua Black, PharmD Procedures Procedure Name Priority Date/Time Associated Diagnosis Comments XR SHOULDER 2+ VIEWS LEFT Routine 03/19/2025 3:04 PM EDT Acute pain of left shoulder VITAMIN D,25-OH,TOTAL,IA Routine 03/19/2025 1:52 PM EDT Acute pain of left shoulder Pain in other joint CREATINE KINASE, TOTAL Routine 03/19/2025 1:52 PM EDT Acute pain of left shoulder Pain in other joint CBC WITH AUTO DIFFERENTIAL Routine 03/19/2025 1:52 PM EDT Pain in other joint URIC ACID Routine [...] complication, with long-term current use of insulin ([facility]) POCT GLUCOSE Routine 03/16/2025 4:17 PM EDT Type 2 diabetes mellitus without complication, with long-term current use of insulin ([facility]) INTRAORAL - PERIAPICAL EACH ADDITIONAL RADIOGRAPHIC IMAGE Routine 02/10/2025 3:00 PM EDT Missing teeth, acquired Dental plaque CASE PRESENTATION, DETAILED AND EXTENSIVE TREATMENT PLANNING Routine 02/10/2025 3:00 PM EDT Missing teeth, acquired Dental plaque PROPHYLAXIS - ADULT Routine 02/10/2025 3 :00 PM EDT Missing teeth, acquired Dental plaque ORAL HYGIENE INSTRUCTIONS Routine 02/10/2025 3:00 PM EDT Missing teeth, acquired Dental plaque INTRAORAL - PERIAPICAL EACH ADDITIONAL RADIOGRAPHIC IMAGE Routine 02/10/2025 3:00 PM EDT Missing teeth, acquired Dental plaque INTRAORAL - PERIAPICAL FIRST RADIOGRAPHIC IMAGE Routine 02/10/2025 3:00 PM EDT Missing teeth, acquired Dental plaque BITEWINGS - 4 RADIOGRAPHIC IMAGES Routine 02/10/2025 3:00 PM EDT Missing teeth, acquired Dental plaque PERIODIC ORAL EVALUATION - ESTABLISHED PATIENT Routine 02/10/2025 3:00 PM EDT HEPATITIS PANEL, GENERAL Routine 10/04/2024 8:54 AM EDT Tiredness HIV 1/2 ANTIGEN/ANTIBODY, FOURTH GENERATION W/RFL Routine 10/04/2024 8:54 AM EDT Tiredness LIPID PANEL WITH REFLEX TO DIRECT LDL Routine 10/04/2024 8:54 AM EDT Type 2 diabetes mellitus without complication, with long-term current use of insulin ([facility]) ALBUMIN, RANDOM URINE W/CREATININE Routine 10/04/2024 8:50 AM EDT Type 2 diabetes mellitus without complication, with long-term current use of insulin ([facility]) INTRAORAL - COMPLETE SERIES OF RADIOGRAPHIC IMAGES Routine 06/15/2022 8:00 AM EST Encounter for dental examination and cleaning with abnormal findings HM COLONOSCOPY Routine 01/30/2019 2:31 PM EDT from Last 3 Months or Most Recently Relevant to Health Maintenance Results * XR Shoulder 2+ Views Left (03/19/2025 3:04 PM EDT) Anatomical Region Laterality Modality Upper Extremities, Shoulder Left Radi ographic Imaging 03/19/2025 3:04 PM EDT Narrative 03/19/2025 3:17 PM EDT [address] [address] XRay Report Signed Patient: Isaac Bonilla MR#: [id number] 47 : 1960 Acct:[id number] Age/Sex: 64 / M ADM Date: 03/19/25 Loc: .[facility] Attending Dr: Antonia Ovalle MD Ordering Physician: Antonia Ovalle MD Date of Service: 03/19/25 Procedure(s): XR shoulder LT min 2V Accession Number(s): [id number] cc: Antonia Ovalle MD Reason for Exam: [...] 03/19/25 1514 DD/ 1504 TD/TT: 03/19/25 1505 Preparation Supervisor Freezing: Procedure Note Donotuseinterpreter, Image - 03/19/2025 [place] [address] XRay Report Signed Patient: Isaac BonillaMR#: [id number] 47 : 1960cct:[id number] Age/Sex: 64 / MADM Date: 03/19/25 Loc: [facility] Attending Dr: Antonia Ovalle MD Ordering Physician: Antonia Ovalle MD Date of Service: 03/19/25 Procedure(s): XR shoulder LT min 2V Accession Number(s): [id number] cc: Antonia Ovalle MD Reason for Exam: [...] 03/19/25 1514 DD/ 1504 TD/TT: 03/19/25 1505 Preparation Supervisor Freezing: us Antonia Ovalle MD IMG XR PROCEDURES Final Result * Vitamin D, 25-Hydroxy, Total, Immunoassay (03/19/2025 1:52 PM EDT) Vitamin D 25-OH Total 66.0 >30 ng/mL [facility] Comment: Health Based Reference Values*< 20 ng/mL [id number] ng/mL Insufficient> 30 ng/mL Sufficient*Rossi SHEARER. N [...] MD LAB BLOOD ORDERABLES Fin al Result [facility] [address] [place], [place] [phone] * (ABNORMAL) CBC auto differential (03/19/2025 1:52 PM EDT) White Blood Count 6.3 4.8 - 10.8 X10*3/uL [facility] Red Blood Count 4.69 4.60 - 5.80 X10*6/uL [facility] Hemoglobin 13.6(L) 14.0 - 18.0 g/dl [facility] Hematocrit 39.5(L) 42.0 - 52.0 % [facility] Mean Corpuscular Volume 84.2 80.0 - 98.0 fL [facility] Mean Corpuscular Hemoglobin 29.0 27.0 - 33.0 pg [facility] Mean Corpuscular HGB Conc 34.4 31.0 - 36.0 g/dl [facility] Red Cell Distribution Width 13.8 11.0 - 16.0 % [facility] Platelet Count 237 160 - 400 X10*3/uL [facility] Mean Platelet Volume 9.5 9.4 - 12.4 fL [facility] Neutrophils Percent Auto 52.4 45 - 73 % [facility] Imm Gran Pct Auto 0.5(H) 0.0 - 0.4 % [facility] Lymphocytes Percent Auto 33.9 20 - 40 % [facility] Monocytes Percent Auto 9.4 2 - 11 % [facility] Eosinophils Percent Auto 3.2 0 - 4 % [facility] Basophils Percent Auto 0.6 0 - 2 % [facility] NRBC Pct Auto 0.0 0.0 - 0.2 /100WBC [facility] Neutrophils Absolute Auto 3.3 2.0 - 8.3 x10*3/uL [facility] Imm Gran Abs Auto 0.03 0.00 - 0.03 X10*3/uL [facility] Lymphocytes Absolute Auto 2.1 1.2 - 4.9 X10*3/uL [facility] Monocytes Absolute Auto 0.6 0.1 - 1.2 X10*3/uL [facility] Eosinophils Absolute Auto 0.2 0.0 - 0.4 X10*3/uL [facility] Basophils Absolute Auto 0.0 0.0 - 0.2 X10*3/uL [facility] NRBC Abs Auto 0.000 0.0 - 0.012 X10*3/uL [facility] Blood Venous blood specimen / Unknown 03/19/2025 1:52 PM EDT 03/19/2025 4:03 PM EDT Antonia Ovalle MD LAB BLOOD ORDERABLES Fin al Result Performing Organization Address [facility] Co de Phone Number [facility] [address] [place] [phone] * Rheumatoid Factor (03/19/2025 1:52 PM EDT) Rheumatoid Factor <13.0 <15.0 IU/mL [facility] Blood Venous blood specimen / Unknown 03/19/2025 1:52 PM EDT 03/19/2025 4:03 PM EDT Antonia Ovalle MD LAB BLOOD ORDERABLES Fin al Result Performing Organization Address [facility] Co de Phone Number [facility] [address] [place] [phone] * C-reactive Protein (03/19/2025 1:52 PM EDT) C Reactive Protein 0.12 < or = 0.50 mg/dL [facility] Blood Venous blood specimen / Unknown 03/19/2025 1:52 PM EDT 03/19/2025 4:03 PM EDT Antonia Ovalle MD LAB BLOOD ORDERABLES Fin al Result Performing Organization Address City/[facility] Co de Phone Number [facility] [address] [place] [phone] * Uric acid (03/19/2025 1:52 PM EDT) Pathologist [facility] Uric Acid 5.9 3.4 - 7.0 mg/dL [facility] Blood Venous blood specimen / Unknown 03/19/2025 1:52 PM EDT 03/19/2025 4:03 PM EDT Antonia Ovalle MD LAB BLOOD ORDERABLES Fin al Result Performing Organization Address City/[facility]/ZIP Co de Phone Number [facility] [address] [place] [phone] * (ABNORMAL) Creatine Kinase, Total (03/19/2025 1:52 PM EDT) Pathologist [facility] Creatine Kinase Total 390(H) 38 - 174 U/L [facility] Blood Venous blood specimen / Unknown 03/19/2025 1:52 PM EDT 03/19/2025 4:03 PM EDT Antonia Ovalle MD LAB BLOOD ORDERABLES Fin al Result Performing Organization Address City/[facility]/ZIP Co de Phone Number [facility] [address] [place] [phone] * (ABNORMAL) POCT Hgb A1c (03/16/2025 4:17 PM EDT) Pathologist [facility] Hemoglobin A1C 7.2(A) 4.0 - 5.7 % QC Media Lot # [id number] Lot# Expiration Date [id number] Blood 03/16/2025 4:17 PM EDT Antonia Ovalle MD POINT OF CARE TEST ENTER /EDIT ORDERABLES Final Result * POCT Glucose (03/16/2025 4:17 PM EDT) Glucose Blood, POC 105 60 - 200 mg/dL QC Media Lot # [id number] Lot# Expiration Date Blood Capillary blood specimen / Unknown 03/16/2025 4:17 PM EDT us Antonia Ovalle MD POINT OF CARE TEST ENTER /EDIT ORDERABLES Final Result * Lipid Panel with Reflex to Direct LDL (10/04/2024 8:54 AM EDT) Pathologist [facility] Triglycerides 138 <150 mg/dL [facility] Comment:Desirable Triglyceri de: less than 150 mg/dLBorderline High Triglyceride 150-199 mg/dLHigh Triglyceride: 200-499 mg/dLVery High Triglyceride: greater than or equal to 5OO mg/dL Cholesterol 170 <200 mg/dL [facility] Comment:Desirable Cholestero l: less than 200 mg/dLBorderline High Cholesterol: 200-239 mg/dLHigh Cholesterol: greater than 239 mg/dL LDL Cholesterol Calculated 96 <100 mg/dL [facility] Comment:Desirable LDL: less than 100 mg/dLNear Optimal/Above Optimal LDL: 110- 129 mg/dLBorderline High LDL: 130-159 mg/dLHigh LDL: 160-189 mg/dLVery High LDL: greater than or equal to 190 mg/dL HDL Cholesterol 47 >40 mg/dL [facility] Comment:Desirable HDL: great er than 40 mg/dL Note: This HDL assay may give artificially low results in patients with liver disease. Blood 10/04/2024 8:54 AM EDT 10/04/2024 8:54 AM EDT us Antonia Ovalle MD LAB BLOOD ORDERABLES Fin al Result [facility] [address] [place] [phone] * Hepatitis Panel, General (10/04/2024 8:54 AM EDT) Pathologist [facility] Hepatitis A IgM Nonreactive Nonreactive [facility] Comment:IgM antibodies to NOYOLA V not detected; does not exclude earlyacute or recovered HAV infection. ~Hepatitis B Surface Antibody NONREACTIVE Nonreactive [facility] Comment:Nonreactive: < 8.00 mIU/mL Hepatitis B Core Antibody Nonreactive Nonreactive [facility] Hepatitis C Antibody Nonreactive Nonreactive [facility] Comment:Antibodies to HCV no t detected; does not exclude early acuteHCV infection. Hepatitis B Surface Ag Negative Negative [facility] Blood 10/04/2024 8:54 AM EDT 10/04/2024 8:54 AM EDT us Antonia Ovalle MD LAB BLOOD ORDERABLES Fin al Result Performing Organization Address [facility] Co de Phone Number [facility] [address] [place] [phone] * HIV-1/2 Antigen and Antibodies, Fourth Generation, with Reflexes (10/04/2024 8:54 AM EDT) [facility] HIV AB/AG Nonreactive Nonreactive [facility] Comment:HIV-1 p24 Ag and/or HIV-1/HIV-2 Ab not detected.A test result that is nonreactive does not exclude thepossibility of exposure to or infection with HIV-1 and/orHIV-2. Nonreactive results in this assay for individualswith prior exposure to HIV-1 and/or HIV-2 may be due toantigen and antibody levels that are below the limit ofdetection of this assay.The [employer] HIV Ag/Ab Combo assay result andsupplemental assay results should be interpreted inconjunction with the patient's clinical presentation,history and other laboratory results. If the results areinconsistent with clinical evidence, additional testing issuggested to confirm the result. Blood Venous blood specimen / Unknown 10/04/2024 8:54 AM EDT 10/04/2024 8:54 AM EDT us Antonia Ovalle MD LAB BLOOD ORDERABLES Fin al Result [facility] [address] [place] [address] [phone] * Albumin, Random Urine W/Creatinine (10/04/2024 8:50 AM EDT) Creatinine, Urine 166.71 mg/dL [facility] Microalbumin Urine 13.0 mg/L [facility] Microalbum Creatinine Ratio Ur 7.7 <30 ug/mg cr [facility] Comment:Albumin/Creatinine R atio Reference Ranges: Normal: < 30 ug/mg creatinine Microalbuminuria: 30 - 300 ug/mg creatinineClinical Albuminuria: > 300 ug/mg creatinine Urine (Urine, Random) 10/04/2024 8:50 AM EDT 10/04/2024 11:03 AM EDT Antonia Ovalle MD LAB URINE ORDERABLES Fin al Result [facility] [address] [place] [address] [phone] * Hm Colonoscopy (01/30/2019 2:31 PM EDT) Colonoscopy Normal Normal Narrative Ashley Kern - 01/30/2019 2:31 PM EDT Recommended 5 year follow up ([facility]) Historical Provider HEALTH MAINTENANCE Edited Result - Final from Last 3 Months or Most Recently Relevant to Health Maintenance Insurance [facility] - HSN PARTIAL (MEDICAID) Care Teams Front End Ui Developer Relationship Specialty Start Date End Date Antonia Ovalle MD [address] [place] [address] PCP - General Family Medicine 02/27/19 Joshua Black, NathalieD [address] [place] [address] Pharmacist Internal Medicine 10/16/22
--- OUTSIDE RECORDS SUMMARY | 2025-03-19 17:14 | XMS_ITS | Encounter Summary ---
Author Organization [employer] Address [address] [facility] [address] 7t [place] [address] Care Team Providers Care Center Lead Consultant Name Role Phone Antonia Ovalle MD Primary Care Provider + Joshua Black PharmD Unavailable [phone] Reason for Visit * Reason Comments Med Refill Encounter Details Date Type Department Care Team (Late st Contact Info) Description 08/06/2023 Refill [facility] [address] [place], [place] [phone] Melisa Sam DO [address] [place], [place] [phone] Anxiety Social History Tobacco Use Types Packs/Day [...] 06/01/2025 2:00 PM EST Office Visit [facility] MEDICINE [address] [place] [address] Antonia Ovalle MD [address] [place] [address] 06/22/2025 3:30 PM EST Office Visit [facility] OPTOMETRY [address] [place] [address] TarkaLorena, OD [address] [place] [address] documented as of this encounter Goals Goal Patient Goal Type Associated Problems Recent Progress Patient-Stated? Author Blood Pressure < 140/90 Blood Pressure 124/76( 025 3:48 PM EDT) No Joshua Black, Luisa documented as of this encounter Visit Diagnoses Diagnosis Anxiety Anxiety state, unspecified documented in this encounter Additional Health Concerns Assessment Noted Time PHQ-9 Depression Total Score: 6 02/20/20 23 4:22 PM EDT documented as of this encounter Care Teams Center Lead Consultant Relationship Specialty Start Date End Date Antonia Ovalle MD [address] [place] [address] PCP - General Family Medicine 02/27/19 Joshua Black, PharmD [address] [place] [address] Pharmacist Internal Medicine 10/16/22 documented as of this encounter
--- OUTSIDE RECORDS SUMMARY | 2025-03-19 17:14 | XMS_ITS | Encounter Summary ---
Author Organization [employer] Address [address] [facility] [address] 7t [place] [address] Care Team Providers Care Obstetrics Specialist Name Role Phone Antonia Ovalle MD Primary Care Provider + Joshua Black PharmD Unavailable [phone] Encounter Details Date Type Department Care Team (Latest Contact Info) Description 03/16/2025 Travel Social History Tobacco Use Types Packs/Day [...] 06/01/2025 2:00 PM EST Office Visit [facility] MEDICINE [address] [place] [address] Antonia Ovalle MD [address] [place] [phone] 06/22/2025 3:30 PM EST Office Visit [facility] OPTOMETRY [address] [place] [address] Lorena Scott, OD [address] [place] [address] documented as of this encounter Goals Goal [...] documented as of this encounter Care Teams Obstetrics Specialist Relationship Specialty Start Date End Date Antonia Ovalle MD [address] [place] [address] PCP - General Family Medicine 02/27/19 Joshua Black, NathalieD [address] [place] [address] Pharmacist Internal Medicine 10/16/22 documented as of this encounter
--- OUTSIDE RECORDS SUMMARY | 2025-03-19 17:14 | XMS_ITS | Clinical Summary ---
Author Organization [facility] Address [address] [place] [address] Care Team Providers Care Leasing Professional Name Role Phone Antonia Ovalle Primary Care Provider [phone] Allergies Active Allergy Reactions Criticality Noted Date [...] / Fit Test 1961 HIV Screening 1960 Sigmoidoscopy 1961 Alcohol/Substance Use Screening 07/09/2024 COVID-19 Vaccine (8 - 2024-2 6 season) 2025 05/04/2022, 11/16/2021, 06/01/2021, Additional history exists Influenza Vaccine (#1) 2025 , 04/12/2021, 04/21/2020, Additional history exists DTaP,Tdap,and Td Vaccines (4 - Td or Tdap) 07/19/2030 07/19/2020, 01/17/2010, 01/17/2010 RSV Vaccine (60+ years old a nd patients) (1 - 1-dose 75+ series) 2036 Zoster Vaccines Completed 06/23/2020, 04/21/2020 Hepatitis B Vaccines Completed 09/06/2021, 06/01/2021, 05/04/2021 Pneumococcal Vaccine: 50+ Years Completed , 06/29/2009 Insurance [facility] HSNO/FREE [facility] Care Teams Leasing Professional Relationship Specialty Start Date End Date Antonia Ovalle [address] [place] [address] PCP - General Internal Medicine 01/26/21
--- OUTSIDE RECORDS SUMMARY | 2025-03-19 17:14 | XMS_ITS | Clinical Summary ---
Author Organization [facility] Address [address] [facility] [address] [place] [address] Phone Care Team Providers Care Mathematician Research Name Role Phone Antonia Ovalle MD Primary Care Provider + Allergies Active Allergy Reactions Criticality Noted Date Comments Pork/Porcine Containing Products Medications atorvastatin (LIPITOR) 40 MG tablet Take 40 mg by mouth daily. Active buPROPion (WELLBUTRIN XL) 300 MG ER 24 hr tablet Take 300 mg by mouth every morning. Active carBAMazepine (TEGRETOL XR) 100 MG 12 hr tablet Take 100 mg by mouth 2 (two) times a day. Active levothyroxine (SYNTHROID, LEVOTHROID) 75 MCG tablet Take 75 mcg by mouth every morning. Active loratadine (CLARITIN) 10 mg tablet Take 10 mg by mouth daily. Active losartan 50 MG Tab 100 mg, hydroCHLOROthiazide 25 MG Tab 25 mg Take by mouth daily. Active metFORMIN (GLUCOPHAGE) 850 MG tablet Take 850 mg by mouth 2 (two) times a day with meals. Active omeprazole (PRILOSEC) 20 mg TbEC Take 20 mg by mouth daily before breakfast. Active prazosin (MINIPRESS) 2 MG capsule Take 2 mg by mouth nightly at bedtime. Active cholecalciferol (VITAMIN D3) 5,000 unit tablet Take 1,000 Units by mouth daily. Active Social History Tobacco Use Types Packs/Day Years Used Date Smoking Tobacco: Never Smokeless Tobacco: Never Alcohol Use Standard Drinks/Week Comments Not Currently 0 (1 standard drink = 0.6 oz pur e alcohol) Education Answer Date Recorded Are you interested in more education? Not on mira e 11/03/2022 Are you concerned about learning? Not on file 11/03/2022 No 11/03/2022 No 11/03/2022 Digital Access Answer Date Recorded No 12/02/2022 No 12/02/2022 No 12/02/2022 Reliable internet access at home? Not on file 12/02/2022 Device with a working camera? Not on file Sex and Gender Information Value Date Recorded Sex Assigned at Male 07/02/2021 3:23 PM EST Legal Sex Male 9:46 PM EDT Gender Identity Male 07/02/2021 3:23 PM EST Sexual Orientation Not on file Last Filed Vital Signs Vital Sign Reading Time Taken Comments Blood Pressure 147/82 07/02/2021 8:30 PM EST Pulse 87 07/02/2021 4:34 PM EST Temperature 37 C (98.6 F) 07/02/2021 4:34 PM EST Respiratory Rate 18 07/02/2021 4:34 PM EST Oxygen Saturation 97% 07/02/2021 9:00 PM EST Inhaled Oxygen Concentration - - Weight 74.8 kg (165 lb) 07/02/2021 3:18 PM EST Height 160 cm (5' 3 ) 07/02/2021 3:18 PM EST Body Mass Index 29.23 07/02/2021 3:18 PM EST Plan of Treatment Health Maintenance Due Date Last Done Comments Adult Td,Tdap Booster 1961 CARBAMAZEPINE (TEGRETOL) LEVEL 1961 LIPID PANEL 1961 TSH LEVEL 1961 DEPRESSION SCREENING 1973 HEPATITIS C SCREENING 1979 HIV ONE-TIME SCREENING (18-65 YEARS) 1979 SMOKING STATUS SCREENING (Once After 26 Yrs) 1987 COLOGUARD 2006 COLONOSCOPY 2006 COLORECTAL CANCER SCREENING 2006 FIT TEST 2006 FOBT 2006 SIGMOIDOSCOPY 2006 VIRTUAL COLONOSCOPY 2006 PNEUMOCOCCAL VACCINES (50+ years) (2 of 2 - PCV) 2011 06/29/2009 CREATININE LEVEL 07/02/2022 07/02/2021 POTASSIUM LEVEL 07/02/2022 07/02/2021 INFLUENZA VACCINE (#1) 2025 0, 05/22/2019, 04/23/2018, Additional history exists COVID-19 VACCINE (2024- season) 2025 11/17/2020, 10/20/2020 RSV VACCINE (1 - 1-dose 75+ series) 2036 ZOSTER VACCINES Completed 06/23/2020, 04/21/2020 HEPATITIS A VACCINES Aged Out No long er eligible based on patient's age to complete this topic HIB VACCINES Aged Out No longer eligi ble based on patient's age to complete this topic MENINGOCOCCAL VACCINES (ACWY) Aged Out No longer eligible based on patient's age to complete this topic MENINGOCOCCAL VACCINES (B) Aged Out N o longer eligible based on patient's age to complete this topic Medical Devices Not on file Procedures Procedure Name Priority Date/Time Associated Diagnosis Comments BASIC METABOLIC PANEL STAT 07/02/2021 3:47 PM EST from Last 3 Months or Most Recently Relevant to Health Maintenance Results * (ABNORMAL) Basic metabolic panel (07/02/2021 3:47 PM EST) SODIUM 137 133 - 146 mmol/L [facility] CHLORIDE 93(L) 96 - 108 mmol/L [facility] POTASSIUM 2.9(L) 3.3 - 5.1 mmol/L [facility] CO2 25 21 - 35 mmol/L [facility] BUN 10 6 - 19 mg/dL [facility] CREATININE 0.90 0.5 - 1.5 mg/dL [facility] GLUCOSE 219(H) 70 - 99 mg/dL [facility] CALCIUM 9.4 8.4 - 10.3 mg/dL [facility] EGFR 98 >59 mL/min/1.7 3m2 [facility] Comment:Estimated glomerular filtration rate calculated using the CKD-EPI refit equation. ANION GAP 22(H) 10 - 20 mmol/L [facility] Blood 07/02/2021 3:47 PM EST 07/02/2021 3:57 PM EST us Eliseo Tran MD LAB BLOOD ORDERABLES Final Re sult [facility] [address] [place] [address] from Last 3 Months or Most Recently Relevant to Health Maintenance Insurance [employer] F[employer] NET FULL [employer] NET FULL [employer] S[employer] NET FULL [facility] LIMITED [facility] NET FULL Care Teams Mathematician Research Relationship Specialty Start Date End Date Antonia Ovalle MD [address] [place] [address] [address] [place] [phone] PCP - General Internal Medicine 07/06/21 Additional Source Comments The information contained in this document represents components of the legal health record. It is not the complete legal health record.[facility]
--- OUTSIDE RECORDS SUMMARY | 2025-03-19 17:14 | XMS_ITS | Encounter Summary ---
Author Organization [employer] Address [address] [facility] [facility] [address] 7t [place] [address] Care Team Providers Care Statement Processor Name Role Phone Antonia Ovalle MD Primary Care Provider + Joshua Black PharmD Unavailable [phone] Reason for Visit * Reason Comments Med Refill Encounter Details Date Type Department Care Team ([facility] st Contact Info) Description 07/06/[address] [facility] MOBILE VACCINE CLINIC [address] [place], [place] [phone] Antonia Ovalle MD [address] [place], [place] [phone] Anxiety Social History Tobacco Use Types Packs/Day [...] 06/01/2025 2:00 PM EST Office Visit [facility] MEDICINE [address] [place] [address] Antonia Ovalle MD [address] [place] [address] 06/22/2025 3:30 PM EST Office Visit [facility] OPTOMETRY [address] [place] [address] TarkaLorena, OD [address] [place] [address] documented as of this encounter Goals Goal [...] documented as of this encounter Care Teams Statement Processor Relationship Specialty Start Date End Date Antonia Ovalle MD [address] [place] [address] PCP - General Family Medicine 02/27/19 Joshua Black, PharmD [address] [place] [address] Pharmacist Internal Medicine 10/16/22 documented as of this encounter
--- OUTSIDE RECORDS SUMMARY | 2025-03-19 17:14 | XMS_ITS | Encounter Summary ---
Author Organization [employer] Address [address] [facility] [address] 7t [place] [address] Care Team Providers Care Sample Preparation Supervisor Name Role Phone Antonia Ovalle MD Primary Care Provider + Joshua Black PharmD Unavailable [phone] Encounter Details Date Type Department Care Team ([facility] Contact Info) Description 08/09/2022 Telephone [facility] MEDICINE [address] [place] [address] [phone] Antonia Ovalle MD [address] [place] [address] [phone] Social History Tobacco Use Types Packs/Day Years [...] Upcoming Encounters Date Type Department Care Team ([facility] Contact Info) Description 06/01/2025 2:00 PM EST Office Visit [facility] [address] [place] [address] [phone] Antonia Ovalle MD [address] [place] [address] 06/22/2025 3:30 PM EST Office Visit [facility] OPTOMETRY [address] [place], [place] [phone] Axeljulius Lorena, OD [address] [place] [address] documented as of this encounter Visit Diagnoses Not on filedocumented in this encounter Care Teams Sample Preparation Supervisor Relationship Specialty Start Date End Date Antonia Ovalle MD [address] [place] [address] [phone] PCP - General Family Medicine 02/27/19 Joshua Black, NathalieD [address] [place] [address] [phone] Pharmacist Internal Medicine 10/16/22 documented as of this encounter
--- OUTSIDE RECORDS SUMMARY | 2025-03-19 17:14 | XMS_ITS | Encounter Summary ---
Author Organization [employer] Address [address] [facility] 7t [place] [address] Care Team Providers Care Motor Winder Name Role Phone Antonia Ovalle MD Primary Care Provider + Joshua Black PharmD Unavailable [phone] Encounter Details Date Type Department Care Team (Latest Contact Info) Description 12/31/2018 Abstract [facility] CONVERSIONS Dental, Provider, DDS Social History [...] Description 06/01/2025 2:00 PM EST Office Visit [facility] MEDICINE [address] [place] [address] Antonia Ovalle MD [address] [place] [address] 06/22/2025 3:30 PM EST Office Visit [facility] OPTOMETRY [address] [place] [address] Lorena Scott, OD [address] [place] [address] documented as of this encounter Visit Diagnoses Not on filedocumented in this encounter Care Teams Motor Winder Relationship Specialty Start Date End Date Antonia Ovalle MD [address] [place], [place] [phone] PCP - General Family Medicine 02/27/19 Joshua Black, NathalieD [address] [place] [address] Pharmacist Internal Medicine 10/16/22 documented as of this encounter
--- OUTSIDE RECORDS SUMMARY | 2025-03-19 17:14 | XMS_ITS | Encounter Summary ---
Author Organization [employer] Address [address] [facility] [address] 7t [place] [address] Care Team Providers Care Cooling Tower Operator Name Role Phone Antonia Ovalle MD Primary Care Provider + Joshua Black PharmD Unavailable Reason for Visit * Reason Comments Med Refill Encounter Details Date Type Department Care Team (Late st Contact Info) Description 09/26/2023 Refill [facility] MEDICINE [address] [place], [place] [phone] Antonia Ovalle MD [address] [place], [place] [phone] Social History Tobacco Use Types Packs/Day Years [...] 06/01/2025 2:00 PM EST Office Visit [facility] MEDICINE [address] [place] [address] Antonia Ovalle MD [address] [place] [address] 06/22/2025 3:30 PM EST Office Visit [facility] OPTOMETRY [address] [place] [address] TarkaLorena, OD [address] [place] [address] documented as of this encounter Goals Goal [...] documented as of this encounter Care Teams Cooling Tower Operator Relationship Specialty Start Date End Date Antonia Ovalle MD [address] [place] [address] PCP - General Family Medicine 02/27/19 Joshua Black PharmD [address] [place] [address] Pharmacist Internal Medicine 10/16/22 documented as of this encounter
--- OUTSIDE RECORDS SUMMARY | 2025-03-19 17:14 | XMS_ITS | Encounter Summary ---
Author Organization [employer] Address [address] [facility] [address] 7t [place] [address] Care Team Providers Care Director Web Name Role Phone Antonia Ovalle MD Primary Care Provider + Joshua Black PharmD Unavailable Encounter Details Date Type Department Care Team (Late st Contact Info) Description 09/06/2022 Orders Only [facility] OPTOMETRY [address] [place] [address] Joao, Saray, OD [address] [place] [address] Primary open angle glaucoma (POAG) of both [...] Department Care Team (Late Contact Info) Description 06/01/2025 2:00 PM EST Office Visit [facility] MEDICINE [address] [place] [address] Antonia Ovalle MD 230 [place], [place] [phone] 06/22/2025 3:30 PM EST Office Visit [facility] OPTOMETRY [address] [place] [address] Axeljulius Lorena, OD [address] [place] [address] documented as of this encounter Visit Diagnoses Diagnosis Primary open angle glaucoma (POAG) of both eyes, mild stage- Primary documented in this encounter Care Teams Director Web Relationship Specialty Start Date End Date Antonia Ovalle MD [address] [place] [address] [phone] PCP - General Family Medicine 02/27/19 Joshua Black, NathalieD [address] [place] [address] [phone] Pharmacist Internal Medicine 10/16/22 documented as of this encounter
--- OUTSIDE RECORDS SUMMARY | 2025-03-19 17:14 | XMS_ITS | Encounter Summary ---
Author Organization [employer] Address [address] [facility] [address] [place] [address] Care Team Providers Care Oil And Gas Principal Name Role Phone Antonia Ovalle MD Primary Care Provider + Joshua Black PharmD Unavailable [phone] Reason for Visit * Reason Comments Med Refill Encounter Details Date Type Department Care Team (Late st Contact Info) Description 01/20/[address] [facility] MEDICINE [address] [place], [place] [phone] Antonia Ovalle MD [address] [place], [place] [phone] Social History Tobacco Use Types Packs/Day Years [...] Description 06/01/2025 2:00 PM EST Office Visit [facility] MEDICINE [address] [place] [address] Antonia Ovalle MD [address] [place] [address] 06/22/2025 3:30 PM EST Office Visit [facility] OPTOMETRY [address] [place] [address] Lorena Scott, OD [address] [place] [address] documented as of this encounter Goals Goal Patient Goal Type Associated Problems Recent Progress Patient-Stated? Author Blood Pressure < 140/90 Blood Pressure 124/76( 025 3:48 PM EDT) No Joshua Black, NathalieD documented as of this encounter Visit Diagnoses Not on filedocumented in this encounter Additional Health Concerns Assessment Noted Time PHQ-9 Depression Total Score: 6 02/20/20 23 4:22 PM EDT documented as of this encounter Care Teams Oil And Gas Principal Relationship Specialty Start Date End Date Antonia Ovalle MD [address] [place] [address] PCP - General Family Medicine 02/27/19 Joshua Black, NathalieD [address] [place] [address] Pharmacist Internal Medicine 10/16/22 documented as of this encounter
--- OUTSIDE RECORDS SUMMARY | 2025-03-19 17:14 | XMS_ITS | Encounter Summary ---
Author Organization [employer] Address [address] [facility] [address] [place] [address] Care Team Providers Care Suit Attendant Name Role Phone Antonia Ovalle MD Primary Care Provider + Joshua Black PharmD Unavailable [phone] Encounter Details Date Type Department Care Team (Latest Contact Info) Description 03/19/2025 Travel Social History Tobacco Use Types Packs/Day [...] Description 06/01/2025 2:00 PM EST Office Visit [facility] MEDICINE [address] [place] [address] Antonia Ovalle MD [address] [place] [address] 06/22/2025 3:30 PM EST Office Visit [facility] OPTOMETRY [address] [place] [address] Lorena Scott, OD [address] [place] [address] documented as of this encounter Goals Goal [...] documented as of this encounter Care Teams Suit Attendant Relationship Specialty Start Date End Date Antonia Ovalle MD [address] [place] [address] PCP - General Family Medicine 02/27/19 Joshua Black, NathalieD [address] [place] [address] Pharmacist Internal Medicine 10/16/22 documented as of this encounter
--- OUTSIDE RECORDS SUMMARY | 2025-03-19 17:14 | XMS_ITS | Encounter Summary ---
Author Organization [employer] Address [address] [facility] [address] [place] [address] Care Team Providers Care Casing Splitter Name Role Phone Antonia Ovalle MD Primary Care Provider + Joshua Black PharmD Unavailable [phone] Reason for Visit * Reason Comments Med Refill Encounter Details Date Type Department Care Team (Late st Contact Info) Description 11/23/2024 Refill [facility] MEDICINE [address] [place], [place] [phone] Antonia Ovalle MD 230 [place], [place] [phone] Primary hypertension Social History Tobacco Use Types Packs/Day Years [...] EST Office Visit [facility] MEDICINE [address] [place] [address] Antonia Ovalle MD [address] [place] [address] 06/22/2025 3:30 PM EST Office Visit [facility] OPTOMETRY [address] [place] [address] Lorena Scott, OD [address] [place] [address] documented as of this encounter Goals Goal Patient Goal Type Associated Problems Recent Progress Patient-Stated? Author Blood Pressure < 140/90 Blood Pressure 124/76( 025 3:48 PM EDT) Joshua Nuno, PharmD documented as of this encounter Visit Diagnoses Diagnosis Primary hypertension Unspecified essential hypertension documented in this encounter Additional Health Concerns Assessment Noted Time PHQ-9 Depression Total Score: 6 02/20/20 23 4:22 PM EDT documented as of this encounter Care Teams Casing Splitter Relationship Specialty Start Date End Date Antonia Ovalle MD 230 [place], [place] [phone] PCP - General Family Medicine 02/27/19 Joshua Black, NathalieD [address] [place] [address] Pharmacist Internal Medicine 10/16/22 documented as of this encounter
--- OUTSIDE RECORDS SUMMARY | 2025-03-19 17:14 | XMS_ITS | Encounter Summary ---
Author Organization [employer] Address [address] [facility] 7t [place] [address] Care Team Providers Care Sugar Sampler Name Role Phone Antonia Ovalle MD Primary Care Provider + Joshua Black PharmD Unavailable [phone] Encounter Details Date Type Department Care Team (Late st Contact Info) Description 12/21/2022 Abstract [facility] [address] [place] [address] [phone] Antonia Ovalle MD [address] [place] [address] [phone] Social History Tobacco Use Types Packs/Day Years [...] Description 06/01/2025 2:00 PM EST Office Visit [facility] [address] [place] [address] [phone] Antonia Ovalle MD [address] [place] [address] 06/22/2025 3:30 PM EST Office Visit [facility] OPT[facility] [address] [place] [address] Lorena Scott, OD [address] [place] [address] documented as of this encounter Goals Goal [...] PM EDT Recommended 5 year follow up ([facility]) us Historical Provider [facility] Edited Result - Final documented in this encounter Visit Diagnoses Not on filedocumented in this encounter Care Teams Sugar Sampler Relationship Specialty Start Date End Date Antonia Ovalle MD [address] [place] [address] PCP - General Family Medicine 02/27/19 Joshua Black, PharmD [address] [place], [place] [phone] Pharmacist Internal Medicine 10/16/22 documented as of this encounter
[2025-03-20 08:25] LABS: HBS Num1 0.00 mIU/mL (0-7.99); HBc Num1 0.07 S/CO (0.00-0.79); HBsAGNum1 0.46 S/CO (0.00-0.99); Hepatitis A Antibody IgM 0.26 Index (0-0.79); Hepatitis B Surface Antigen Negative (Negative); ~HepC Num1 0.08 S/CO (0.00-0.79); ~Hepatitis A Antibody IgM Nonreactive (Nonreactive); ~Hepatitis B Surface Antibody NONREACTIVE (Nonreactive); ~Hepatitis C Antibody Nonreactive (Nonreactive)
[2025-03-24 11:38] LABS: Anti Nuclear Antibody Screen POSITIVE (NEGATIVE); Anti Nuclear Antibody Titer 1:160 titer
[2025-03-27 17:33] LABS: Strep DNASE B Antibody <95 U/mL (<301)
== END 2025-03-19 13:13 | disposition home or self-care (01) ==
LOC: HO.HHCL 13:12
PROVIDERS: PCP Internal Medicine; Visit Provider Internal Medicine
DX: M25.512 Pain in left shoulder (principal); Z01.84 Encounter for antibody response examination; Z11.59 Encounter for screening for other viral diseases
CPT/HCPCS: 36415; 73030; 82085; 82306; 82550; 84550; 85025; 85652; 86038; 86039; 86140; 86200; 86215; 86431; 86704; 86706; 86709; 86803; 87340

== ENCOUNTER → 2025-03-19 13:21 | Outpatient (BNV) | payer OTHER, SELFPAY | PROVIDERS: PCP Internal Medicine; Visit Provider Radiology Diagnostic Radiology | DX: M25.512 Pain in left shoulder (principal) | CPT/HCPCS: 73030 ==

== ENCOUNTER → 2025-05-28 13:23 | Outpatient (REF) | payer OTHER, SELFPAY ==
--- OUTSIDE RECORDS SUMMARY | 2025-05-28 18:52 | XMS_ITS | Encounter Summary ---
Author Organization [employer] Address [address] [facility] [address] 7[address] [place] [address] Care Team Providers Care Special Events Assistant Name Role Phone Antonia Ovalle MD Primary Care Provider + Joshua Black PharmD Unavailable [phone] Encounter Details Date Type Department Care Team (Late st Contact Info) Description 03/23/2025 Telephone [facility] [address] [place], [place] [phone] Antonia Ovalle MD [address] [place], [place] [phone] Social History Tobacco Use Types Packs/Day Years [...] Description 06/01/2025 2:00 PM EST Office Visit [facility] [address] [place] [address] Antonia Ovalle MD [address] [place] [address] 06/22/2025 3:30 PM EST Office Visit [facility] OPT[facility] [address] [place] [address] Lorena Scott, OD [address] [place] [address] documented as of this encounter Goals Goal [...] documented as of this encounter Care Teams Special Events Assistant Relationship Specialty Start Date End Date Antonia Ovalle MD [address] [place] [address] PCP - General Family Medicine 02/27/19 Joshua Black, NathalieD [address] [place] [phone] Pharmacist Internal Medicine 10/16/22 documented as of this encounter
--- OUTSIDE RECORDS SUMMARY | 2025-05-28 18:52 | XMS_ITS | Encounter Summary ---
Author Organization [employer] Address 75 [facility] 7t [place] [address] Care Team Providers Care Pickle Processor Name Role Phone Antonia Ovalle MD Primary Care Provider + Joshua Black PharmD Unavailable [phone] Encounter Details Date Type Department Care Team (Latest Contact Info) Description 01/05/2021 Abstract [facility] CONVERSIONS Dental, Provider, DDS Social History [...] Description 06/01/2025 2:00 PM EST Office Visit [facility] MED[facility] [address] [place] [address] Antonia Ovalle MD [address] [place] [address] 06/22/2025 3:30 PM EST Office Visit [facility] OPTOMETRY [address] [place] [address] Lorena Scott, OD [address] [place] [address] documented as of this encounter Visit Diagnoses Not on filedocumented in this encounter Care Teams Pickle Processor Relationship Specialty Start Date End Date Antonia Ovalle MD [address] [place] [address] PCP - General Family Medicine 02/27/19 Joshua Black, NathalieD [address] [place] [address] Pharmacist Internal Medicine 10/16/22 documented as of this encounter
--- OUTSIDE RECORDS SUMMARY | 2025-05-28 18:52 | XMS_ITS | Encounter Summary ---
Author Organization [employer] Address 75 [facility] 7t [place] [address] Care Team Providers Care Oven Laborer Name Role Phone Antonia Ovalle MD Primary Care Provider + Joshua Black PharmD Unavailable [phone] Encounter Details Date Type Department Care Team (Late st Contact Info) Description 12/21/2022 Abstract [facility] [address] [place] [address] [phone] Antonia Ovalle MD [address] [place] [address] [phone] Social History Tobacco Use Types Packs/Day Years [...] Description 06/01/2025 2:00 PM EST Office Visit [facility] [address] [place] [address] [phone] Anotnia Ovalle MD [address] [place] [address] 06/22/2025 3:30 PM EST Office Visit [facility] OPTOMETRY [address] [place] [address] Lorena Scott, OD [address] [place] [address] documented as of this encounter Goals Goal [...] PM EDT Recommended 5 year follow up ([facility]) us Historical Provider [facility] Edited Result - Final documented in this encounter Visit Diagnoses Not on filedocumented in this encounter Care Teams Oven Laborer Relationship Specialty Start Date End Date Antonia Ovalle MD [address] [place] [address] PCP - General Family Medicine 02/27/19 Joshua Black, PharmD [address] [place], [place] [phone] Pharmacist Internal Medicine 10/16/22 documented as of this encounter
--- OUTSIDE RECORDS SUMMARY | 2025-05-28 18:52 | XMS_ITS | Clinical Summary ---
Author Organization [facility] Address [address] [place] [address] Care Team Providers Care Rig Manager Name Role Phone Antonia Ovalle Primary Care Provider [phone] Allergies Active Allergy Reactions Criticality Noted Date [...] 1960 Sigmoidoscopy 1961 Alcohol/Substance Use Screening 07/09/2024 Influenza Vaccine (#1) 2025 , 04/12/2021, 04/21/2020, Additional history exists COVID-19 Vaccine (2024-2 6 season) 2025 05/04/2022, 11/16/2021, 06/01/2021, Additional history exists DTaP,Tdap,and Td Vaccines (4 - Td or Tdap) 07/19/2030 07/19/2020, 01/17/2010, 01/17/2010 RSV Vaccine (60+ years old a nd patients) (1 - 1-dose 75+ series) 2036 Zoster Vaccines Completed 06/23/2020, 04/21/2020 Hepatitis B Vaccines Completed 09/06/2021, 06/01/2021, 05/04/2021 Pneumococcal Vaccine: 50+ Years Completed , 06/29/2009 Insurance [facility] HSNO/FREE CARE [facility] Care Teams Rig Manager Relationship Specialty Start Date End Date Antonia Ovalle [address] [place] [id number] PCP - General Internal Medicine 01/26/21
--- OUTSIDE RECORDS SUMMARY | 2025-05-28 18:52 | XMS_ITS | Encounter Summary ---
Author Organization [employer] Address [address] [facility] [address] 7[address] [place] [address] Care Team Providers Care Braid Folder Name Role Phone Antonia Ovalle MD Primary Care Provider + Joshua Black PharmD Unavailable [phone] Reason for Visit * Reason Comments Med Refill Encounter Details Date Type Department Care Team ([facility] st Contact Info) Description 07/06/2023 Refill [facility] [address] [place], [place] [phone] Antonia Ovalle MD [address] [place], [place] [phone] Anxiety Social History Tobacco Use Types Packs/Day [...] Description 06/01/2025 2:00 PM EST Office Visit [facility] [address] [place] [address] Antonia Ovalle MD [address] [place] [address] 06/22/2025 3:30 PM EST Office Visit [facility] OPTOMETRY [address] [place] [address] TarkaLorena, OD [address] [place] [address] documented as of this encounter Goals Goal [...] documented as of this encounter Care Teams Braid Folder Relationship Specialty Start Date End Date Antonia Ovalle MD [address] [place] [address] PCP - General Family Medicine 02/27/19 Joshua Black, PharmD [address] [place] [address] Pharmacist Internal Medicine 10/16/22 documented as of this encounter
--- OUTSIDE RECORDS SUMMARY | 2025-05-28 18:52 | XMS_ITS | Encounter Summary ---
Author Organization [employer] Address [address] [facility] [address] 7[address] [place] [address] Care Team Providers Care Owner Manager Name Role Phone Antonia Ovalle MD Primary Care Provider + Joshua Black PharmD Unavailable [phone] Reason for Visit * Reason Comments Med Refill Encounter Details Date Type Department Care Team (Late st Contact Info) Description 08/06/2023 Refill [facility] [address] [place], [place] [phone] Melisa Sam DO [address] [place], [place] [phone] Anxiety Social History Tobacco Use Types Packs/Day [...] 2:00 PM EST Office Visit [facility] [address] [place] [address] Antonia Ovalle MD [address] [place] [address] 06/22/2025 3:30 PM EST Office Visit [facility] OPTOMETRY [address] [place] [address] TarkaLorena, OD [address] [place] [address] documented as of this encounter Goals Goal [...] documented as of this encounter Care Teams Owner Manager Relationship Specialty Start Date End Date Antonia Ovalle MD [address] [place] [address] PCP - General Family Medicine 02/27/19 Joshua Black, PharmD [address] [place] [address] Pharmacist Internal Medicine 10/16/22 documented as of this encounter
--- OUTSIDE RECORDS SUMMARY | 2025-05-28 18:52 | XMS_ITS | Encounter Summary ---
Author Organization [employer] Address [address] [facility] [address] 7[address] [place] [address] Care Team Providers Care Television Program Director Name Role Phone Antonia Ovalle MD Primary Care Provider + Joshua Black PharmD Unavailable [phone] Reason for Visit * Reason Comments Med Refill Encounter Details Date Type Department Care Team (Late st Contact Info) Description 11/23/[address] [facility] [address] [place], [place] [phone] Antonia Ovalle MD [address] [place], [place] [phone] Primary hypertension Social History Tobacco Use Types [...] PM EST Office Visit [facility] [address] [place] [address] Antonia Ovalle MD [address] [place] [address] 06/22/2025 3:30 PM EST Office Visit [facility] OPTOMETRY [address] [place] [address] Lorena Scott, OD [address] [place] [address] documented as of this encounter Goals Goal [...] documented as of this encounter Care Teams Television Program Director Relationship Specialty Start Date End Date Antonia Ovalle MD [address] [place], [place] [phone] PCP - General Family Medicine 02/27/19 Joshua Black, NathalieD [address] [place] [address] Pharmacist Internal Medicine 10/16/22 documented as of this encounter
--- OUTSIDE RECORDS SUMMARY | 2025-05-28 18:52 | XMS_ITS | Encounter Summary ---
Author Organization [employer] Address [address] [facility] 7t [place] [address] Care Team Providers Care Field Service Representative Name Role Phone Antonia Ovalle MD Primary Care Provider + Joshua Black PharmD Unavailable [phone] Encounter Details Date Type Department Care Team (Latest Contact Info) Description 12/31/2018 Abstract [facility] CONVERSIONS Dental, Provider, DDS Social History Tobacco [...] 2:00 PM EST Office Visit [facility] [address] [place] [address] Antonia Ovalle MD [address] [place] [address] 06/22/2025 3:30 PM EST Office Visit [facility] OPT[facility] [address] [place] [address] Lorena Scott, OD [address] [place] [address] documented as of this encounter Visit Diagnoses Not on filedocumented in this encounter Care Teams Field Service Representative Relationship Specialty Start Date End Date Antonia Ovalle MD [address] [place], [place] [phone] PCP - General Family Medicine 02/27/19 Joshua Black, NathalieD [address] [place] [address] Pharmacist Internal Medicine 10/16/22 documented as of this encounter
--- OUTSIDE RECORDS SUMMARY | 2025-05-28 18:52 | XMS_ITS | Clinical Summary ---
Author Organization [employer] Address [address] [facility] [address] [place] [address] Care Team Providers Care Store Group Manager Name Role Phone Melly Ovalle MD Primary Care Provider + Joshua Black PharmD Unavailable [phone] Allergies Active Allergy Reactions Criticality Noted Date Comments Gramineae Pollens Itching 01/31/2022 Porcine (Pork) Protein Hives 07/02/2021 Shellfish Allergy 01/25/2023 Medications omega-3 (Fish Oil) 1000 MG capsule 2 capsules once daily OTC Active glucose (Glutose) 40 % gel oral gelIndications:Ty pe 2 diabetes mellitus without complication, with long-term current use of insulin ([facility]) Take 15 g by mouth if needed for low blood sugar. 60 g 3 023 Active aspirin 81 MG EC tablet Take 1 tablet (81 mg) by mouth Once per day. 90 tablet 3 024 Active omeprazole (PriLOSEC) [address] capsuleIndication s:Gastroesophagea l reflux disease without esophagitis Take 1 capsule (20 mg) by mouth before breakfast. Do not crush or chew. 90 capsule 2 025 Active pen needle 33G x 4 mm misc Use as instructed 100 each 12 025 2025 Active insulin glargine (Lantus SoloStar) 100 UNIT/ML penIndications:Ty pe 2 diabetes mellitus without complication, with long-term current use of insulin ([facility]) INJECT 30 UNITS SUBCUTANEOUSLY EVERY MORNING 15 mL 11 025 Active FREESTYLE LITE test stripIndications: Type 2 diabetes, diet controlled (HCC) TEST BLOOD SUGAR THREE TIMES DAILY 100 strip 11 05/26/20 25 3:33 PM EST Active loratadine (Claritin) 10 MG tabletIndications :Chronic rhinitis TAKE 1 TABLET BY MOUTH EVERY MORNING 90 tablet 1 025 Active rosuvastatin (Crestor) 10 MG tabletIndications :Mixed hyperlipidemia TAKE 1 TABLET BY MOUTH AT BEDTIME 90 tablet 3 Active carBAMazepine XR (TEGretol XR) 100 MG 12 hr tablet Take 1 tablet (100 mg) by mouth 2 times daily. Do not crush, chew, or split. 60 tablet 5 Active levothyroxine (Synthroid, Levoxyl) 75 MCG tablet TAKE 1 TABLET BY MOUTH EVERY MORNING 30 tablet 5 Active metFORMIN (Glucophage) 850 MG tablet TAKE 1 TABLET BY MOUTH TWICE DAILY IN THE MORNING AND IN THE EVENING WITH FOOD 60 tablet Active latanoprost (Xalatan) 0.005 % ophthalmic solution PLACE 1 DROP IN EACH EYE EVERY DAY AT BEDTIME 2.5 mL Active prazosin (Minipress) 2 MG capsuleIndication s:Benign prostatic hyperplasia without lower urinary tract symptoms TAKE 1 CAPSULE BY MOUTH AT BEDTIME 90 capsule 2 Active meloxicam (Mobic) 15 MG tablet TAKE 1 TABLET BY MOUTH ONCE DAILY 30 tablet Active buPROPion XL (Wellbutrin XL) 300 MG 24 hr tabletIndications :Anxiety TAKE 1 TABLET BY MOUTH EVERY MORNING 30 tablet 5 025 Active dilTIAZem SR (Cardizem SR) 120 MG 12 hr capsuleIndication s:Primary hypertension TAKE 1 CAPSULE BY MOUTH EVERY EVENING 30 capsule 5 025 Active losartan-hydroCHL OROthiazide (Hyzaar) 100-25 MG tabletIndications :Primary hypertension TAKE 1 TABLET BY MOUTH EVERY MORNING 30 tablet 5 025 Active dilTIAZem SR (Cardizem SR) 120 MG 12 hr capsuleIndication s:Primary hypertension TAKE 1 CAPSULE BY MOUTH EVERY EVENING 30 capsule 5 025 2024 Discontinued losartan-hydroCHL OROthiazide (Hyzaar) 100-25 MG tabletIndications :Primary hypertension TAKE 1 TABLET BY MOUTH EVERY MORNING 30 tablet 5 2 025 2024 Discontinued buPROPion XL (Wellbutrin XL) 300 MG 24 hr tabletIndications :Anxiety TAKE 1 TABLET BY MOUTH EVERY MORNING 30 tablet 5 025 2024 Discontinued Active Problems Problem Noted Date Diagnosed Date Elevated aldolase level 03/26/2025 Acute pain of left shoulder 03/16/2025 Assessment [...] of colon 10/01/2024 Overview (10/01/2024): Colonoscopy at [facility] on 2019 Assessment & Plan (10/01/2024 7:29 PM EDT): S/p colonoscopy on 2019 at [facility] Localized gingival recession 02/07/2024 Missing teeth, acquired [...] foot, limited to breakdown of skin (CMS/HCC) 05/28/2023 Assessment & Plan (01/18/2024 1:30 PM EDT): On right foot, sec to tinea pedis. Advised to keep area clean and dry, use clotrimazole cream bid FU with me in 3-4w or earlier prn worsening erythema, fever, foot pain Assessment & Plan (05/28/2023 6:13 PM EST): Nothing to be infected Drawer In to use otc Vaseline ointment on affected [...] one due . FU with ophthalmology at [facility] for glaucoma FU. CRC screen: [...] due January 2023. FU with ophthalmology at [facility] for glaucoma FU. 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 [address] [place] [address] Melly Ovalle MD Anxiety; Primary hypertension 04/16/2025 Refill [facility] [address] [place] [address] Melly Ovalle MD 04/13/2025 Refill [facility] [address] [place] [address] Melly Ovalle MD Benign prostatic hyperplasia without lower urinary tract symptoms 03/26/2025 Results Follow-Up [facility] [address] [place] [address] Melly Ovalle MD XR Shoulder 2+ Views Left 03/23/2025 Telephone [facility] [address] [place] [address] Melly Ovalle MD 03/19/2025 2:30 PM EDT Office Visit [facility] [address] [place] [address] Lorena Scott, OD Type 2 diabetes mellitus without ophthalmic manifestations (CMS/HCC) (Primary Dx); Anatomical narrow angle of both eyes; Primary open angle glaucoma (POAG) of both eyes, mild stage; Congenital ectropion of iris; Presbyopia 03/19/2025 Travel 03/16/2025 4:00 PM EDT Office Visit [facility] [address] [place] [address] Melly Ovalle MD Tiredness (Primary Dx); Obstructive sleep apnea syndrome; Acute pain of left shoulder; Pain in other joint; Type 2 diabetes mellitus without complication, with long-term current use of insulin (CMS/HCC); Encounter for colorectal cancer screening 03/16/2025 Travel 03/13/2025 Telephone [facility] [address] [place], [place] [phone] Melly Ovalle MD Chart Prep 03/12/2025 Travel 03/09/2025 Travel 03/07/2025 Refill [facility] [address] [place] [address] Saray Shepherd, OD 03/05/2025 Patient Outreach [facility] [address] [place] [address] Melly Ovalle MD Pre-visit Planning ([facility] screening completed on 11/11/2024) from Last 3 Months Immunizations Immunization Administration [...] Description 06/01/2025 2:00 PM EST Office Visit [facility] [address] [place] [address] Melly Ovalle MD [address] [place] [address] 06/22/2025 3:30 PM EST Office Visit [facility] [address] [place] [address] Lorena Scott, OD [address] [place] [address] Health Maintenance Due Date Last Done Comments Anal Pap 1961 CT Colonography 1961 FIT DNA/Cologuard 1961 FIT 1961 FOBT 1960 Sigmoidoscopy 1961 Alcohol/Substance Use Screening 1973 Hepatitis A Vaccines (1 of 2 - Risk 2-dose series) 1980 Colonoscopy 01/31/2024 01/30/2019 Colorectal Cancer Screening 01/31/2024 Depression Screening 02/20/2024 02/19/2023, 02/20/20 23 COVID-19 Vaccine ( season) 2025 05/16/2024, 09/04/2023, 05/04/2022, Additional history exists Influenza Vaccine (#1) 2025 , 04/09/2023, 05/04/2022, [...] Additional history exists SDOH Screening 11/11/2025 11/11/2024 Dental X-Ray: Bitewings 02/11/2026 02/11/20 25, 02/07/2024, 06/15/2022 Disability Screening 03/09/2026 03/09/2025 Diabetes: Foot Exam 03/16/2026 03/16/2025, 03/16/2025, 03/16/2025, Additional history exists Tobacco Screening 03/24/2026 03/24/2025 Eye Exam 03/19/2027 03/19/2025, 03/09, 03/19/2025, Additional history exists DTaP/Tdap/Td Vaccines (2 - Td or Tdap) 07/19/2030 07/19/2020, 01/17/2010, 01/17/2010 Zoster Vaccines Completed 06/23/2020, 04/21/2020 Hepatitis B Vaccines Completed 09/06/2021, 06/01/2021, 05/04/2021 Pneumococcal Vaccine: 50+ Years Completed 08/30/2022, 06/29/2009 RSV Patients and Patients Aged 60 years or older Completed 06/12/2024 HIV Screening Completed 10/04/2024 Hepatitis C Screening Completed 03/19/2025 , 10/04/2024, 04/27/2021 HIB Vaccines Aged Out No longer eligi [...] 3:48 PM EDT) No Joshua Black, Luisa Procedures Procedure Name Priority Date/Time Associated Diagnosis Comments XR SHOULDER 2+ VIEWS LEFT Routine 03/19/2025 3:04 PM EDT Acute pain of left shoulder VITAMIN D,25-OH,TOTAL,IA Routine 03/19/2025 1:52 PM EDT Acute pain of left shoulder Pain in other joint ANTI-DNASE B ANTIBODY Routine 03/19/2025 1:52 PM EDT Acute pain of left shoulder Pain in other joint CYCLIC CITRULLINATED PEPTIDE (CCP) AB (IGG) Routine 03/19/2025 1:52 PM EDT Acute pain of left shoulder Pain in other joint ALDOLASE Routine 03/19/2025 1:52 PM EDT Acute pain of left shoulder Pain in other joint CREATINE KINASE, TOTAL Routine 1:52 PM EDT Acute pain of left shoulder Pain in other joint HEPATITIS PANEL, GENERAL Routine 03/19/2025 1:52 PM EDT Acute pain of left shoulder CBC WITH AUTO DIFFERENTIAL Routine 03/19/2025 1:52 PM EDT Pain in other joint URIC ACID Routine 03/19/2025 1:52 PM EDT Pain in other joint RHEUMATOID FACTOR Routine 03/19/2025 1:5 2 PM EDT Acute pain of left shoulder Pain in other joint C-REACTIVE PROTEIN Routine 03/19/2025 1: 52 PM EDT Acute pain of left shoulder Pain in other joint SED RATE BY MODIFIED WESTERGREN Routine 03/19/2025 1:52 PM EDT Acute pain of left shoulder Pain in other joint MELLY SCREEN, IFA, W/REFL TITER AND PATTERN Routine 03/19/2025 1:52 PM EDT Acute pain of left shoulder Pain in other joint POCT GLYCATED HEMOGLOBIN, TOTAL Routine 03/16/2025 4:17 PM EDT Type 2 diabetes mellitus without complication, with long-term current use of insulin ([facility]) POCT GLUCOSE Routine 03/16/2025 4:17 PM EDT Type 2 diabetes mellitus without complication, with long-term current use of insulin (CMS/HCC) PROPHYLAXIS - ADULT Routine 02/10/2025 3 :00 PM EDT Missing teeth, acquired Dental plaque BITEWINGS - 4 RADIOGRAPHIC IMAGES Routine 02/10/2025 3:00 PM EDT Missing teeth, acquired Dental plaque PERIODIC ORAL EVALUATION - ESTABLISHED PATIENT Routine 02/10/2025 3:00 PM EDT HIV 1/2 ANTIGEN/ANTIBODY, FOURTH GENERATION W/RFL Routine 10/04/2024 8:54 AM EDT Tiredness LIPID PANEL WITH REFLEX TO DIRECT LDL Routine 10/04/2024 8:54 AM EDT Type 2 diabetes mellitus without complication, with long-term current use of insulin (CMS/HCC) ALBUMIN, RANDOM URINE W/CREATININE Routine 10/04/2024 8:50 AM EDT Type 2 diabetes mellitus without complication, with long-term current use of insulin ([facility]) INTRAORAL - COMPLETE SERIES OF RADIOGRAPHIC IMAGES [...] PM EDT Narrative 03/19/2025 3:17 PM EDT [place] [id number] XRay Report Signed Patient: Isaac Bonilla MR#: [id number] 47 : 1960 Acct:[id number] Age/Sex: 64 / M ADM Date: 03/19/25 Loc: HO.[facility]CL Attending Dr: Melly Ovalle MD Ordering Physician: Melly Ovalle MD Date of Service: 03/19/25 Procedure(s): XR shoulder LT min 2V Accession Number(s): [id number] cc: Melly Ovalle MD Reason for Exam: left shoudler [...] by Florian Zapata MD in OV> 03/19/25 151 DD/ 150 TD/TT: 03/19/25 150 Digital Circuit Designer: Procedure Note Mere, Image - 03/19/2025 [place] [address] XRay Report Signed Patient: Isaac BonillaMR#: [id number] 48 : 1960cct:[id number] Age/Sex: 64 / MADM Date: 03/19/25 Loc: .[facility] Attending Dr: Melly Ovalle MD Ordering Physician: Melly Ovalle MD Date of Service: 03/19/25 Procedure(s): XR shoulder LT min 2V Accession Number(s): [id number] cc: Melly Ovalle MD Reason for Exam: left shoudler [...] by Florian Zapata MD in OV> 03/19/25 151 DD/ 1504 TD/TT: 03/19/25 150 Digital Circuit Designer: Melly Ovalle MD IMG XR PROCEDURES Final Result * Vitamin D, 25-Hydroxy, Total, Immunoassay (03/19/2025 1:52 PM EDT) Vitamin D 25-OH Total 66.0 >30 ng/mL [facility] Comment: Health Based Reference Values*< 20 ng/mL Zyxmeiuoh45-82 ng/mL Insufficient> 30 ng/mL Sufficient*Rossi SHEARER. N [...] PM EDT 03/19/2025 4:03 PM EDT us Melly Ovalle MD LAB BLOOD ORDERABLES Fin al Result [facility] [address] [place] [phone] * Hepatitis Panel, General (03/19/2025 1:52 PM EDT) Pathologist [facility] [place] Hepatitis A IgM Nonreactive Nonreactive [facility] Comment:IgM antibodies to NOYOLA V not detected; does not exclude earlyacute or recovered HAV infection. ~Hepatitis B Surface Antibody NONREACTIVE Nonreactive [facility] Comment:Nonreactive: < 8.00 mIU/mL Hepatitis B Core Antibody Nonreactive Nonreactive [facility] Hepatitis C Antibody Nonreactive Nonreactive [facility] Comment:Antibodies to HCV no t detected; does not exclude early acuteHCV infection. Hepatitis B Surface Ag Negative Negative [facility] Blood 03/19/2025 1:52 PM EDT 03/19/2025 4:03 PM EDT Melly Ovalle MD LAB BLOOD ORDERABLES Fin al Result [facility] [address] [place] [phone] [phone] * (ABNORMAL) CBC auto differential (03/19/2025 1:52 PM EDT) White Blood Count 6.3 4.8 - 10.8 X10*3/uL [facility] Red Blood Count 4.69 4.60 - 5.80 X10*6/uL [facility] Hemoglobin 13.6(L) 14.0 - 18.0 g/dl [facility] Hematocrit 39.5(L) 42.0 - 52.0 % [facility] Mean Corpuscular Volume 84.2 80.0 - 98.0 fL [facility] Mean Corpuscular Hemoglobin 29.0 27.0 - 33.0 pg [facility] Mean Corpuscular HGB Conc 34.4 31.0 - 36.0 g/dl [facility] Red Cell Distribution Width 13.8 11.0 - 16.0 % [facility] Platelet Count 237 160 - 400 X10*3/uL [facility] Mean Platelet Volume 9.5 9.4 - 12.4 fL [facility] Neutrophils Percent Auto 52.4 45 - 73 % [facility] Imm Gran Pct Auto 0.5(H) 0.0 - 0.4 % [facility] Lymphocytes Percent Auto 33.9 20 - 40 % [facility] Monocytes Percent Auto 9.4 2 - 11 % [facility] Eosinophils Percent Auto 3.2 0 - 4 % [facility] Basophils Percent Auto 0.6 0 - 2 % [facility] NRBC Pct Auto 0.0 0.0 - 0.2 /100WBC [facility] Neutrophils Absolute Auto 3.3 2.0 - 8.3 x10*3/uL [facility] Imm Gran Abs Auto 0.03 0.00 - 0.03 X10*3/uL [facility] Lymphocytes Absolute Auto 2.1 1.2 - 4.9 X10*3/uL [facility] Monocytes Absolute Auto 0.6 0.1 - 1.2 X10*3/uL [facility] Eosinophils Absolute Auto 0.2 0.0 - 0.4 X10*3/uL [facility] Basophils Absolute Auto 0.0 0.0 - 0.2 X10*3/uL [facility] NRBC Abs Auto 0.000 0.0 - 0.012 X10*3/uL [facility] Blood Venous blood specimen / Unknown 03/19/2025 1:52 PM EDT 03/19/2025 4:03 PM EDT Melly Ovalle MD LAB BLOOD ORDERABLES Fin al Result Performing Organization Address [facility]/ZIP Co de Phone Number [facility] [address] [place] [phone] * Cyclic Citrullinated Peptide (CCP) Antibody (IgG) (03/19/2025 1:52 PM EDT) Cyclic Citrullinated Peptide <16 UNITS [facility] Comment:Reference RangeNegat ike: <20Weak Positive: 20-39Moderate Positive: 40-59Strong Positive: >59THIS TEST WAS PERFORMED AT:[facility] [address] [id number] PAZ MD Blood Venous blood specimen / Unknown 03/19/2025 1:52 PM EDT 03/19/2025 4:03 PM EDT Melly Ovalle MD LAB BLOOD ORDERABLES Fin al Result Performing Organization Address City/[facility]/ZIP Co de Phone Number [facility] [address] [place] [phone] * (ABNORMAL) Aldolase (03/19/2025 1:52 PM EDT) Pathologist [facility] [place] Aldolase 9.0(A) <=8.1 U/L [facility] Comment:THIS TEST WAS PERFOR MED AT:[id number] [place] [phone] LYLES MD,PHD Blood Venous blood specimen / Unknown 03/19/2025 1:52 PM EDT 03/19/2025 4:03 PM EDT Melly Ovalle MD LAB BLOOD ORDERABLES Fin al Result Performing Organization Address City/[facility]/ZIP Co de Phone Number [facility] [address] [place] [phone] * Sed Rate by Modified Sanjeevergren (03/19/2025 1:52 PM EDT) Pathologist [facility] [place] Erythrocyte Sedimentation Rate 4 0 - 15 MM/HR [facility] Comment:Patients with polycy themia and many hemoglobin abnormalitiesmay have depressed sed rates whereas patients with anemiamay have elevated sed rates. Blood Venous blood specimen / Unknown 03/19/2025 1:52 PM EDT 03/19/2025 4:03 PM EDT us Melly Ovalle MD LAB BLOOD ORDERABLES Fin al Result [facility] [address] [place] [address] [phone] * Anti-DNAse B antibody (03/19/2025 1:52 PM EDT) Pathologist [facility] [place] DNAse B Ab <95 <301 U/mL [facility] Comment:THIS TEST WAS PERFOR MED AT:[id number] [place] [address]FLOIYRAFAEL STERLING MD,PHD,HUBERT Blood Venous blood specimen / Unknown 03/19/2025 1:52 PM EDT 03/19/2025 4:03 PM EDT Melly Ovalle MD LAB BLOOD ORDERABLES Fin al Result Performing Organization Address [facility] Co de Phone Number [facility] [address] [place] [phone] * Rheumatoid Factor (03/19/2025 1:52 PM EDT) Rheumatoid Factor <13.0 <15.0 IU/mL [facility] Blood Venous blood specimen / Unknown 03/19/2025 1:52 PM EDT 03/19/2025 4:03 PM EDT Melly Ovalle MD LAB BLOOD ORDERABLES Fin al Result Performing Organization Address [facility] de Phone Number [facility] [address] [place] [phone] * C-reactive Protein (03/19/2025 1:52 PM EDT) Pathologist [facility] [place] C Reactive Protein 0.12 < or = 0.50 mg/dL [facility] Blood Venous blood specimen / Unknown 03/19/2025 1:52 PM EDT 03/19/2025 4:03 PM EDT Melly Ovalle MD LAB BLOOD ORDERABLES Fin al Result Performing Organization Address [facility] de Phone Number [facility] [address] [place] [phone] * (ABNORMAL) MELLY Screen,IFA, with Reflex to Titer and Pattern (03/19/2025 1:52 PM EDT) Anti Nuclear Antibody Screen POSITIVE (A) NEGATIVE [facility] Comment:MELLY IFA is a first l ine screen for detecting thepresence of up to approximately 150 autoantibodies invarious autoimmune diseases. A positive MELLY IFA resultis suggestive of autoimmune disease and reflexes totiter and pattern. Further laboratory testing may beconsidered if clinically indicated.For additional information, please refer [email or web address]/faq/QMK352(This link is being provided for informational/educational purposes only.) MELLY Titer 1:160(A) titer [facility] Comment:Reference Range <1:4 0 Negative 1:40-1:80 Low Antibody Level >1:80 Elevated Antibody Level MELLY Pattern (A) [facility] Comment:Cytoplasmic, Dense F ine Speckled Abnormal Flag: AThe pattern appears cloudy, almost homogeneousthroughout the cytoplasm (e.g., anti-PL-7, PL-12,ribosomal P proteins). Pattern is associated withanti-synthetase syndrome, polymyositis/dermatomyositis,systemic lupus erythematosus (SLE), juvenile SLE, andneuropsychiatric SLE.AC-19: Dense Fine SpeckledInternational Consensus on MELLY Patterns(https://doi.org/10.1515/iiet-4338-7124)THIS TEST WAS PERFORMED AT:[employer] [place] [phone] PAZ MD MELLY Titer 2 [facility] MELLY Pattern 2 [facility] MELLY TITER 3 [facility] MELLY PATTERN 3 [facility] Blood Venous blood specimen / Unknown 03/19/2025 1:52 PM EDT 03/19/2025 4:03 PM EDT us Melly Ovalle MD LAB BLOOD ORDERABLES Fin al Result [facility] [address] [place] [phone] [phone] * Uric acid (03/19/2025 1:52 PM EDT) Uric Acid 5.9 3.4 - 7.0 mg/dL [facility] Blood Venous blood specimen / Unknown 03/19/2025 1:52 PM EDT 03/19/2025 4:03 PM EDT Melly Ovalle MD LAB BLOOD ORDERABLES Fin al Result Performing Organization Address City/[facility]/ZIP Co de Phone Number [facility] [address] [place] [phone] * (ABNORMAL) Creatine Kinase, Total (03/19/2025 1:52 PM EDT) Creatine Kinase Total 390(H) 38 - 174 U/L [facility] Blood Venous blood specimen / Unknown 03/19/2025 1:52 PM EDT 03/19/2025 4:03 PM EDT Melly Ovalle MD LAB BLOOD ORDERABLES Fin al Result Performing Organization Address [facility] Co de Phone Number [facility] [address] [place] [phone] * (ABNORMAL) POCT Hgb A1c (03/16/2025 4:17 PM EDT) [facility] Hemoglobin A1C 7.2(A) 4.0 - 5.7 % QC Media Lot # [id number] Lot# Expiration Date [id number] Blood 03/16/2025 4:17 PM EDT Result [facility] Melly Ovalle MD POINT OF CARE TEST ENTER /EDIT ORDERABLES Final Result * POCT Glucose (03/16/2025 4:17 PM EDT) Glucose Blood, POC 105 60 - 200 mg/dL QC Media Lot # [id number] Lot# Expiration Date 113,025 Blood Capillary blood specimen / Unknown 03/16/2025 4:17 PM EDT Melly Ovalle MD POINT OF CARE TEST ENTER /EDIT ORDERABLES Final Result * Lipid Panel with Reflex to Direct LDL (10/04/2024 8:54 AM EDT) Triglycerides 138 <150 mg/dL [facility] Comment:Desirable Triglyceri de: less than 150 mg/dLBorderline High Triglyceride 150-199 mg/dLHigh Triglyceride: 200-499 mg/dLVery High Triglyceride: greater than or equal to 5OO mg/dL Cholesterol 170 <200 mg/dL [facility] Comment:Desirable Cholestero l: less than 200 mg/dLBorderline High Cholesterol: 200-239 mg/dLHigh Cholesterol: greater than 239 mg/dL LDL Cholesterol Calculated 96 <100 mg/dL [facility] Comment:Desirable LDL: less than 100 mg/dLNear Optimal/Above Optimal LDL: 110- 129 mg/dLBorderline High LDL: 130-159 mg/dLHigh LDL: 160-189 mg/dLVery High LDL: greater than or equal to 190 mg/dL HDL Cholesterol 47 >40 mg/dL [facility] Comment:Desirable HDL: great er than 40 mg/dL Note: This HDL assay may give artificially low results in patients with liver disease. Blood 10/04/2024 8:54 AM EDT 10/04/2024 8:54 AM EDT us Melly Ovalle MD LAB BLOOD ORDERABLES Fin al Result [facility] [address] [place] [phone] * HIV-1/2 Antigen and Antibodies, Fourth Generation, with Reflexes (10/04/2024 8:54 AM EDT) HIV AB/AG Nonreactive Nonreactive [facility] Comment:HIV-1 p24 Ag and/or HIV-1/HIV-2 Ab not detected.A test result that is nonreactive does not exclude thepossibility of exposure to or infection with HIV-1 and/orHIV-2. Nonreactive results in this assay for individualswith prior exposure to HIV-1 and/or HIV-2 may be due toantigen and antibody levels that are below the limit ofdetection of this assay.The [employer] HIV Ag/Ab Combo assay result andsupplemental assay results should be interpreted inconjunction with the patient's clinical presentation,history and other laboratory results. If the results areinconsistent with clinical evidence, additional testing issuggested to confirm the result. Blood Venous blood specimen / Unknown 10/04/2024 8:54 AM EDT 10/04/2024 8:54 AM EDT Melly Ovalle MD LAB BLOOD ORDERABLES Fin al Result Performing Organization Address [facility] Co de Phone Number [facility] [address] [place] [address] [phone] * Albumin, Random Urine W/Creatinine (10/04/2024 8:50 AM EDT) Creatinine, Urine 166.71 mg/dL [facility] Microalbumin Urine 13.0 mg/L [facility] Microalbum Creatinine Ratio Ur 7.7 <30 ug/mg cr [facility] Comment:Albumin/Creatinine R atio Reference Ranges: Normal: < 30 ug/mg creatinine Microalbuminuria: 30 - 300 ug/mg creatinineClinical Albuminuria: > 300 ug/mg creatinine Urine (Urine, Random) 10/04/2024 8:50 AM EDT 10/04/2024 11:03 AM EDT Melly Ovalle MD LAB URINE ORDERABLES Fin al Result Performing Organization Address [facility] Co de Phone Number [facility] [address] [place] [phone] * Hm Colonoscopy (01/30/2019 2:31 PM EDT) Colonoscopy Normal Normal Narrative Ashley Kern - 01/30/2019 2:31 PM EDT Recommended 5 year follow up ([facility]) Historical Provider HEALTH MAINTENANCE Edited Result - Final from Last 3 Months or Most Recently Relevant to Health Maintenance Insurance [facility] HEALTH PLAN DENTAL - HSN PARTIAL (MEDICAID) * Guarantor: Isaac Bonilla Account Type Relation to Patient Date of Phone Billing Address Personal/Family Self [address] Care Teams Store Group Manager Relationship Specialty Start Date End Date Melly Ovalle MD [address] [place] [address] PCP - General Family Medicine 02/27/19 Joshua Black, NathalieD [address] [place] [address] Pharmacist Internal Medicine 10/16/22
--- OUTSIDE RECORDS SUMMARY | 2025-05-28 18:52 | XMS_ITS | Encounter Summary ---
Author Organization [employer] Address [address] [facility] [address] 7t [place] [address] Care Team Providers Care Privacy Specialist Name Role Phone Antonia Ovalle MD Primary Care Provider + Joshua Black PharmD Unavailable [phone] Reason for Visit * Reason Comments Med Refill Encounter Details Date Type Department Care Team (Late st Contact Info) Description 09/26/[address] [facility] MED[facility]INE [address] [place], [place] [phone] Antonia Ovalle MD [address] [place], [place] [phone] Social History Tobacco Use Types Packs/Day Years [...] [facility] [address] [place] [address] Antonia Ovalle MD [address] [place] [address] 06/22/2025 3:30 PM EST Office Visit [facility] OPTOMETRY [address] [place] [address] TarkaLorena, OD [address] [place] [address] documented as of this encounter Goals Goal [...] documented as of this encounter Care Teams Privacy Specialist Relationship Specialty Start Date End Date Antonia Ovalle MD [address] [place] [phone] PCP - General Family Medicine 02/27/19 Joshua Black PharmD [address] [place] [phone] Pharmacist Internal Medicine 10/16/22 documented as of this encounter
--- OUTSIDE RECORDS SUMMARY | 2025-05-28 18:52 | XMS_ITS | Encounter Summary ---
Author Organization [employer] Address [address] [facility] [address] 7t [place] [address] Care Team Providers Care Pottery Striper Name Role Phone Antonia Ovalle MD Primary Care Provider + Joshua Black PharmD Unavailable [phone] Encounter Details Date Type Department Care Team ([facility] Contact Info) Description 08/09/2022 Telephone [facility] MEDICINE [address] [place] [address] [phone] Antonia Ovalle MD [address] [place] [address] [phone] Social History Tobacco Use Types Packs/Day Years [...] Upcoming Encounters Date Type Department Care Team ([facility] Contact Info) Description 06/01/2025 2:00 PM EST Office Visit [facility] MEDICINE [address] [place] [address] [phone] Antonia Ovalle MD [address] [place] [address] 06/22/2025 3:30 PM EST Office Visit [facility] OPTOMETRY [address] [place], [place] [phone] Axeljulius Lorena, OD [address] [place] [address] documented as of this encounter Visit Diagnoses Not on filedocumented in this encounter Care Teams Pottery Striper Relationship Specialty Start Date End Date Antonia Ovalle MD [address] [place] [address] [phone] PCP - General Family Medicine 02/27/19 Joshua Black, NathalieD [address] [place] [address] [phone] Pharmacist Internal Medicine 10/16/22 documented as of this encounter
--- OUTSIDE RECORDS SUMMARY | 2025-05-28 18:52 | XMS_ITS | Encounter Summary ---
Author Organization [employer] Address [address] [facility] [facility] [facility] [address] [place] [address] Care Team Providers Care Brake Lining Finisher Name Role Phone Antonia Ovalle MD Primary Care Provider + Joshua Black PharmD Unavailable [phone] Encounter Details Date Type Department Care Team (Late st Contact Info) Description 09/06/2022 Orders Only [facility] OPTOMETRY [address] [place] [address] Joao, Saray, OD 230 [place] [address] Primary open angle glaucoma (POAG) of both [...] Description 06/01/2025 2:00 PM EST Office Visit [facility] MEDICINE [address] [place] [address] Antonia Ovalle MD [address] [place], [place] [phone] 06/22/2025 3:30 PM EST Office Visit [facility] OPTOMETRY 267 [place] [address] Axeljulisu Lorena, OD [address] [place] [address] documented as of this encounter Visit Diagnoses Diagnosis Primary open angle glaucoma (POAG) of both eyes, mild stage- Primary documented in this encounter Care Teams Brake Lining Finisher Relationship Specialty Start Date End Date Antonia Ovalle MD [address] [place] [address] [phone] PCP - General Family Medicine 02/27/19 Joshua Black, NathalieD [address] [place] [address] [phone] Pharmacist Internal Medicine 10/16/22 documented as of this encounter
--- OUTSIDE RECORDS SUMMARY | 2025-05-28 18:52 | XMS_ITS | Encounter Summary ---
Author Organization [employer] Address [address] [facility] [address] 7t [place] [address] Care Team Providers Care Assembler Wire Mesh Gate Name Role Phone Antonia Ovalle MD Primary Care Provider + Joshua Black PharmD Unavailable [phone] Reason for Visit * Reason Comments Med Refill Encounter Details Date Type Department Care Team (Late st Contact Info) Description 01/20/2025 Refill [facility] MEDICINE [address] [place], [place] [phone] Antonia Ovalle MD 230 [place], [place] [phone] Social History Tobacco Use Types Packs/Day Years [...] Description 06/01/2025 2:00 PM EST Office Visit [facility] MEDICINE [address] [place] [address] Antonia Ovalle MD 230 [place] [address] 06/22/2025 3:30 PM EST Office Visit [facility] OPTOMETRY [address] [place] [address] Lorena Scott, OD [address] [place] [address] documented as of this encounter Goals Goal [...] documented as of this encounter Care Teams Assembler Wire Mesh Gate Relationship Specialty Start Date End Date Antonia Ovalle MD [address] [place] [address] PCP - General Family Medicine 02/27/19 Joshua Black, NathalieD [address] [place] [address] Pharmacist Internal Medicine 10/16/22 documented as of this encounter
== END ==
LOC: HO.SL 13:23
PROVIDERS: PCP Internal Medicine; Visit Provider Internal Medicine
DX: G47.33 Obstructive sleep apnea (adult) (pediatric) (principal)
CPT/HCPCS: 95806

== ENCOUNTER → 2025-05-28 21:00 | Outpatient (BNV) | payer OTHER, SELFPAY | PROVIDERS: PCP Internal Medicine; Visit Provider Internal Medicine | DX: G47.33 Obstructive sleep apnea (adult) (pediatric) (principal) | CPT/HCPCS: 95806 ==

== ENCOUNTER 2025-06-17 07:40 | Day surgery (SDC) | payer OTHER, SELFPAY ==
--- OUTSIDE RECORDS SUMMARY | 2025-06-12 12:34 | XMS_ITS | Encounter Summary ---
Author Organization [facility] Address [address] [place] [address] [place] [phone] Phone Care Team Providers Care Dethistler Operator Name Role Phone Antonia Ovalle MD Primary Care Provider + Encounter Details Date Type Department Care Team (Late st Contact Info) Description 07/02/2021 Procedure Pass [facility], Ct Scan - [address] [address] Social History Tobacco Use Types Packs/Day Years [...] 07/02/2021 3:23 PM Gay Singleton RN * [place] Suicide Severity Rating Scale (Screener/Recent Self-Report) Question [...] on filedocumented in this encounter Care Teams Dethistler Operator Relationship Specialty Start Date End Date Antonia Ovalle MD [address] [place] [phone] PCP - General Internal Medicine 07/06/21 documented as of this encounter Additional Source Comments The information contained in this document represents components of the legal health record. It is not the complete legal health record.[facility]
--- OUTSIDE RECORDS SUMMARY | 2025-06-12 12:34 | XMS_ITS | Clinical Summary ---
Author Organization [facility] Address [address] [facility] [address] [place] [phone] Phone Care Team Providers Care Hydrogenation Operator Name Role Phone Antonia Ovalle MD [...] Date/Time Associated Diagnosis Comments BASIC METABOLIC PANEL (BMP) STAT 07/02/2021 3:47 PM EST from Last 3 Months or Most Recently Relevant to Health Maintenance Results * (ABNORMAL) Basic metabolic panel (07/02/2021 3:47 PM EST) SODIUM 137 133 - 146 mmol/L [facility] CHLORIDE 93(L) 96 - 108 mmol/L [facility] POTASSIUM 2.9(L) 3.3 - 5.1 mmol/L [facility] CO2 25 21 - 35 mmol/L [facility] BUN 10 6 - 19 mg/dL [facility] CREATININE 0.90 0.5 - 1.5 mg/dL [facility] GLUCOSE 219(H) 70 - 99 mg/dL [facility] CALCIUM 9.4 8.4 - 10.3 mg/dL [facility] EGFR 98 >59 mL/min/1.7 3m2 [facility] Comment:Estimated glomerular filtration rate calculated using the CKD-EPI refit equation. ANION GAP 22(H) 10 - 20 mmol/L [facility] Blood 07/02/2021 3:47 PM EST 07/02/2021 3:57 PM EST us Eliseo Tran MD LAB BLOOD BKR ORDERABLES Avelina l Result [facility] [address] [place] [address] from Last 3 Months or Most Recently Relevant to Health Maintenance Insurance [employer] NET FULL [employer] NET FULL [employer] NET FULL [employer] NET FULL [employer] NET FULL [employer] NET FULL [employer] S[employer] NET FULL [facility] FULL Care Teams Hydrogenation Operator Relationship Specialty Start Date End Date Antonia Ovalle MD [address] [place] [address] [address] [place] [phone] PCP - General Internal Medicine 07/06/21 Additional Source Comments The information contained in this document represents components of the legal health record. It is not the complete legal health record.[facility]
--- OUTSIDE RECORDS SUMMARY | 2025-06-12 12:34 | XMS_ITS | Clinical Summary ---
Author Organization [facility] Address [address] [place] [address] Care Team Providers Care Parcel Post Officer Name Role Phone Antonia Ovalle Primary Care Provider [phone] Allergies Active Allergy Reactions Criticality Noted Date [...] Vaccine: 50+ Years Completed , 06/29/2009 Insurance [facility] HSNO/FREE [facility]ARE [facility] Care Teams Parcel Post Officer Relationship Specialty Start Date End Date Antonia Ovalle [address] [place] [phone] PCP - General Internal Medicine 01/26/21
--- OUTSIDE RECORDS SUMMARY | 2025-06-12 12:35 | XMS_ITS | Encounter Summary ---
Author Organization [employer] Address [address] [facility] [address] 7t [place] [address] Care Team Providers Care Toll Relief Operator Name Role Phone Antonia Ovalle MD Primary Care Provider + Joshua Black PharmD Unavailable [phone] Encounter Details Date Type Department Care Team (Late st Contact Info) Description 03/23/2025 Telephone [facility] MEDICINE [address] [place], [place] [phone] Antonia Ovalle MD [address] [place], [place] [phone] Social History Tobacco Use Types Packs/Day Years [...] Care Team (Late st Contact Info) Description 06/22/2025 3:30 PM EST Office Visit [facility] OPTOMETRY [address] [place] [address] Tarka, Lorena, OD [address] [place] [address] Arrived 08/04/2025 11:45 AM EST Office Visit [facility] MEDICINE [address] [place] [address] Antonia Ovalle MD [address] [place] [address] documented as of this encounter Goals Goal Patient Goal Type Associated Problems Recent Progress Patient-Stated? Author Blood Pressure < 140/90 Blood Pressure 142/66( 025 2:12 PM EST) Joshua Nuno, Luisa documented as of this encounter Visit Diagnoses Not on filedocumented in this encounter Additional Health Concerns Assessment Noted Time PHQ-9 Depression Total Score: 6 02/20/20 23 4:22 PM EDT documented as of this encounter Care Teams Toll Relief Operator Relationship Specialty Start Date End Date Antonia Ovalle MD [address] [place] [address] PCP - General Family Medicine 02/27/19 Joshua Black, NathalieD [address] [place] [address] Pharmacist Internal Medicine 10/16/22 documented as of this encounter
--- OUTSIDE RECORDS SUMMARY | 2025-06-12 12:35 | XMS_ITS | Encounter Summary ---
Author Organization [employer] Address [address] [facility] [address] 7t [place] [address] Care Team Providers Care Manager Systems Name Role Phone Antonia Ovalle MD Primary Care Provider + Joshua Black PharmD Unavailable [phone] Encounter Details Date Type Department Care Team ([facility] Contact Info) Description 08/09/2022 Telephone [facility] MEDICINE 230 [place], [place] [phone] Antonia Ovalle MD [address] [place], [place] [phone] Social History Tobacco Use Types Packs/Day Years [...] Upcoming Encounters Date Type Department Care Team ([facility] Contact Info) Description 06/22/2025 3:30 PM EST Office Visit [facility] OPTOMETRY [address] [place] [address] Lorena Scott OD [address] [place], [place] [phone] Arrived 08/04/2025 11:45 AM EST Office Visit [facility] MEDICINE [address] [place], [place] [phone] Antonia Ovalle MD [address] [place], [place] [phone] documented as of this encounter Visit Diagnoses Not on filedocumented in this encounter Care Teams Manager Systems Relationship Specialty Start Date End Date Antonia Ovalle MD [address] [place] [address] [phone] PCP - General Family Medicine 02/27/19 Joshua Black, NathalieD [address] [place] [address] [phone] Pharmacist Internal Medicine 10/16/22 documented as of this encounter
--- OUTSIDE RECORDS SUMMARY | 2025-06-12 12:35 | XMS_ITS | Encounter Summary ---
Author Organization [employer] Address [address] [facility] [address] 7t [place] [address] Care Team Providers Care Salon Professional Name Role Phone Antonia Ovalle MD Primary Care Provider + Joshua Black PharmD Unavailable [phone] Encounter Details Date Type Department Care Team (Late st Contact Info) Description 09/06/2022 Orders Only [facility] OPTOMETRY [address] [place], [place] [phone] Joao, Saray, OD [address] [place] [address] Primary open angle glaucoma (POAG) of both [...] Description 06/22/2025 3:30 PM EST Office Visit [facility] OPTOMETRY [address] [place], [place] [phone] Lorena Scott, OD [address] [place] [address] Arrived 08/04/2025 11:45 AM EST Office Visit [facility] MEDICINE [address] [place] [address] Antonia Ovalle MD [address] [place] [address] documented as of this encounter Visit Diagnoses Diagnosis Primary open angle glaucoma (POAG) of both eyes, mild stage- Primary documented in this encounter Care Teams Salon Professional Relationship Specialty Start Date End Date Antonia Ovalle MD [address] [place] [address] [phone] PCP - General Family Medicine 02/27/19 Joshua Black, NathalieD [address] [place] [address] [phone] Pharmacist Internal Medicine 10/16/22 documented as of this encounter
--- OUTSIDE RECORDS SUMMARY | 2025-06-12 12:35 | XMS_ITS | Encounter Summary ---
Author Organization [employer] Address [address] [facility] [address] 7t [place] [address] Care Team Providers Care Nailing Machine Operator Name Role Phone Antonia Ovalle MD Primary Care Provider + Joshua Black PharmD Unavailable [phone] Reason for Visit * Reason Comments Med Refill Encounter Details Date Type Department Care Team (Late st Contact Info) Description 08/06/2023 Refill [facility] [address] [place], [place] [phone] Melisa Sam DO 230 [place], [place] [phone] Anxiety Social History Tobacco Use Types Packs/Day [...] Description 06/22/2025 3:30 PM EST Office Visit [facility] OPTOMETRY [address] [place], [place] [phone] TarkaLorena, OD 267 [place] [address] Arrived 08/04/2025 11:45 AM EST Office Visit [facility] MEDICINE [address] [place] [address] Antonia Ovalle MD [address] [place] [address] documented as of this encounter Goals Goal Patient Goal Type Associated Problems Recent Progress Patient-Stated? Author Blood Pressure < 140/90 Blood Pressure 142/66( 025 2:12 PM EST) No Joshua Black, NathalieD documented as of this encounter Visit Diagnoses Diagnosis Anxiety Anxiety state, unspecified documented in this encounter Additional Health Concerns Assessment Noted Time PHQ-9 Depression Total Score: 6 02/20/20 23 4:22 PM EDT documented as of this encounter Care Teams Nailing Machine Operator Relationship Specialty Start Date End Date Antonia Ovalle MD [address] [place] [address] PCP - General Family Medicine 02/27/19 Joshua Black, PharmD [address] [place] [address] Pharmacist Internal Medicine 10/16/22 documented as of this encounter
--- OUTSIDE RECORDS SUMMARY | 2025-06-12 12:35 | XMS_ITS | Encounter Summary ---
Author Organization [employer] Address [address] [facility] 7t [place] [address] Care Team Providers Care Recovery Analyst Name Role Phone Antonia Ovalle MD Primary Care Provider + Joshua Black PharmD Unavailable [phone] Encounter Details Date Type Department Care Team (Latest Contact Info) Description 12/31/2018 Abstract [facility] CONVERSIONS Dental, Provider, DDS Social History Tobacco [...] Description 06/22/2025 3:30 PM EST Office Visit [facility] OPTOMETRY [address] [place] [address] Lorena Scott, OD [address] [place] [address] Arrived 08/04/2025 11:45 AM EST Office Visit [facility] MEDICINE 230 [place] [address] Antonia Ovalle MD [address] [place] [address] documented as of this encounter Visit Diagnoses Not on filedocumented in this encounter Care Teams Recovery Analyst Relationship Specialty Start Date End Date Antonia Ovalle MD [address] [place] [address] PCP - General Family Medicine 02/27/19 Joshua Black, NathalieD [address] [place] [address] Pharmacist Internal Medicine 10/16/22 documented as of this encounter
--- OUTSIDE RECORDS SUMMARY | 2025-06-12 12:35 | XMS_ITS | Encounter Summary ---
Author Organization [employer] Address [address] [facility] 7t [place] [address] Care Team Providers Care Adjunct Teacher Name Role Phone Antonia Ovalle MD Primary Care Provider + Joshua Black PharmD Unavailable [phone] Encounter Details Date Type Department Care Team [...] Description 06/22/2025 3:30 PM EST Office Visit [facility] OPTOMETRY [address] [place] [address] Lorena Scott, OD 267 [place] [address] Arrived 08/04/2025 11:45 AM EST Office Visit [facility] MEDICINE 230 [place] [address] Antonia Ovalle MD [address] [place] [address] documented as of this encounter Visit Diagnoses Not on filedocumented in this encounter Care Teams Adjunct Teacher Relationship Specialty Start Date End Date Antonia Ovalle MD [address] [place] [address] PCP - General Family Medicine 02/27/19 Joshua Black, NathalieD [address] [place] [address] Pharmacist Internal Medicine 10/16/22 documented as of this encounter
--- OUTSIDE RECORDS SUMMARY | 2025-06-12 12:35 | XMS_ITS | Encounter Summary ---
Author Organization [employer] Address [address] [facility] [address] [place] [address] Care Team Providers Care Retirement Specialist Name Role Phone Antonia Ovalle MD Primary Care Provider + Joshua Black PharmD Unavailable [phone] Encounter Details Date Type Department Care Team (Late st Contact Info) Description 06/11/2025 Refill [facility] MEDICINE [address] [place], [place] [phone] Antonia Ovalle MD [address] [place], [place] [phone] Social History Tobacco Use Types Packs/Day Years [...] Description 06/22/2025 3:30 PM EST Office Visit [facility] OPTOMETRY [address] [place] [address] Lorena Scott, OD [address] [place] [address] Arrived 08/04/2025 11:45 AM EST Office Visit [facility] MEDICINE [address] [place] [address] Antonia Ovalle MD [address] [place] [address] documented as of this encounter Goals Goal Patient Goal Type Associated Problems Recent Progress Patient-Stated? Author Blood Pressure < 140/90 Blood Pressure 142/66(2024 2:12 PM EST) No Joshua Black, PharmD Help patients manage their type 2 diabetes Care Plan Help patients manage their type 2 diabetes Oxana Saeed MA Weekly blood pressure task Care Plan Weekly blood pressure task No Oxana Purdy MA Help patients manage their type 2 diabetes Care Plan Help patients manage their type 2 diabetes Oxana Saeed [place] Patient has chronic kidney disease Care Plan Patient has chronic kidney disease No Oxana Purdy [place] Help patients manage their type 2 diabetes Care Plan Help patients manage their type 2 diabetes No Oxana Purdy [place] Patient has diabetic neuropathy Care Plan Patient has diabetic neuropathy No Oxana Purdy [place] Weekly blood pressure task Care Plan Weekly blood pressure task No Oxana Purdy [place] Weekly blood pressure task Care Plan Weekly blood pressure task No Oxana Purdy [place] Patient has chronic kidney disease Care Plan Patient has chronic kidney disease No Oxana Purdy [place] Patient has chronic kidney disease Care Plan Patient has chronic kidney disease No Oxana Purdy [place] Patient has diabetic neuropathy Care Plan Patient has diabetic neuropathy No Oxana Purdy [place] Patient has diabetic neuropathy Care Plan Patient has diabetic neuropathy No Oxana Purdy MA Weekly blood pressure task Care Plan Weekly blood pressure task No Goldie Triana MA Weekly blood pressure task Care Plan Weekly blood pressure task No Goldie Triana MA Weekly blood pressure task Care Plan Weekly blood pressure task No Goldie Triana [place] Patient has chronic kidney disease Care Plan Patient has chronic kidney disease No Goldie Triana [place] Patient has chronic kidney disease Care Plan Patient has chronic kidney disease No Goldie Triana [place] Patient has chronic kidney disease Care Plan Patient has chronic kidney disease No Goldie Triana [place] Patient has diabetic neuropathy Care Plan Patient has diabetic neuropathy No Goldie Triana [place] Patient has diabetic neuropathy Care Plan Patient has diabetic neuropathy No Goldie Triana [place] Patient has diabetic neuropathy Care Plan Patient has diabetic neuropathy No Goldie Triana MA Weekly blood pressure task Care Plan Weekly blood pressure task No Goldie Triana MA Weekly blood pressure task Care Plan Weekly blood pressure task No Goldie Triana MA Weekly blood pressure task Care Plan Weekly blood pressure task No Goldie Triana [place] Patient has chronic kidney disease Care Plan Patient has chronic kidney disease No Goldie Triana [place] Patient has chronic kidney disease Care Plan Patient has chronic kidney disease No Goldie Triana [place] Patient has chronic kidney disease Care Plan Patient has chronic kidney disease No Goldie Triana [place] Patient has diabetic neuropathy Care Plan Patient has diabetic neuropathy No Goldie Triana [place] Patient has diabetic neuropathy Care Plan Patient has diabetic neuropathy No Goldie Triana [place] Patient has diabetic neuropathy Care Plan Patient has diabetic neuropathy No Goldie Triana [place] Weekly blood pressure task Care Plan Weekly blood pressure task No Melisa Liz PharmD Weekly blood pressure task Care Plan Weekly blood pressure task No Melisa Liz PharmD Weekly blood pressure task Care Plan Weekly blood pressure task No Melisa Liz PharmD Patient has chronic kidney disease Care Plan Patient has chronic kidney disease No Melisa Liz PharmD Patient has chronic kidney disease Care Plan Patient has chronic kidney disease No Melisa Liz PharmD Patient has chronic kidney disease Care Plan Patient has chronic kidney disease No Melisa Liz PharmD Patient has diabetic neuropathy Care Plan Patient has diabetic neuropathy No Melisa Liz PharmD Patient has diabetic neuropathy Care Plan Patient has diabetic neuropathy No Melisa Liz PharmD Patient has diabetic neuropathy Care Plan Patient has diabetic neuropathy No Melisa Liz PharmD documented as of this encounter Visit Diagnoses Not on filedocumented in this encounter Additional Health Concerns Active Problems Noted Date Diagnosed Date Help patients manage their type 2 diabetes 05/29 Weekly blood pressure task 05/29/2025 Help patients manage their type 2 diabetes 05/29 Patient has chronic kidney disease 05/29/2025 Help patients manage their type 2 diabetes 05/29 Patient has diabetic neuropathy 05/29/2025 Weekly blood pressure task 05/29/2025 Weekly blood pressure task 05/29/2025 Patient has chronic kidney disease 05/29/2025 Patient has chronic kidney disease 05/29/2025 Patient has diabetic neuropathy 05/29/2025 Patient has diabetic neuropathy 05/29/2025 Weekly blood pressure task 06/01/2025 Weekly blood pressure task 06/01/2025 Weekly blood pressure task 06/01/2025 Patient has chronic kidney disease 06/01/2025 Patient has chronic kidney disease 06/01/2025 Patient has chronic kidney disease 06/01/2025 Patient has diabetic neuropathy 06/01/2025 Patient has diabetic neuropathy 06/01/2025 Patient has diabetic neuropathy 06/01/2025 Weekly blood pressure task 06/09/2025 Weekly blood pressure task 06/09/2025 Weekly blood pressure task 06/09/2025 Patient has chronic kidney disease 06/09/2025 Patient has chronic kidney disease 06/09/2025 Patient has chronic kidney disease 06/09/2025 Patient has diabetic neuropathy 06/09/2025 Patient has diabetic neuropathy 06/09/2025 Patient has diabetic neuropathy 06/09/2025 Weekly blood pressure task 06/11/2025 Weekly blood pressure task 06/11/2025 Weekly blood pressure task 06/11/2025 Patient has chronic kidney disease 06/11/2025 Patient has chronic kidney disease 06/11/2025 Patient has chronic kidney disease 06/11/2025 Patient has diabetic neuropathy 06/11/2025 Patient has diabetic neuropathy 06/11/2025 Patient has diabetic neuropathy 06/11/2025 Assessment Noted Time PHQ-9 Depression Total Score: 6 02/20/20 23 4:22 PM EDT documented as of this encounter Care Teams Retirement Specialist Relationship Specialty Start Date End Date Antonia Ovalle MD [address] [place] [address] PCP - General Family Medicine 02/27/19 Joshua Black, NathalieD [address] [place] [id number] Pharmacist Internal Medicine 10/16/22 documented as of this encounter
--- OUTSIDE RECORDS SUMMARY | 2025-06-12 12:35 | XMS_ITS | Encounter Summary ---
Author Organization [employer] Address [address] [place] [address] Care Team Providers Care Flight Communications Operator Name Role Phone Antonia Ovalle MD Primary Care Provider + Joshua Black PharmD Unavailable [phone] Reason for Visit * Reason Comments Med Refill Encounter Details Date Type Department Care Team ([facility] st Contact Info) Description 07/06/2023 Refill [facility] [address] [place], [place] [phone] Antonia Ovalle MD [address] [place], [place] [phone] Anxiety Social History Tobacco Use Types Packs/Day [...] 3:30 PM EST Office Visit [facility] OPTOMETRY [address] [place], [place] [phone] TarkaLorena, OD [address] [place] [address] Arrived 08/04/2025 11:45 AM EST Office Visit [facility] MEDICINE [address] [place] [phone] Antonia Ovalle MD [address] [place] [phone] documented as of this encounter Goals Goal [...] documented as of this encounter Care Teams Flight Communications Operator Relationship Specialty Start Date End Date Antonia Ovalle MD [address] [place] [id number] PCP - General Family Medicine 02/27/19 Joshua Black, PharmD [address] [place] [address] Pharmacist Internal Medicine 10/16/22 documented as of this encounter
--- OUTSIDE RECORDS SUMMARY | 2025-06-12 12:35 | XMS_ITS | Encounter Summary ---
Author Organization [employer] Address [address] [facility] [address] [place] [address] Care Team Providers Care Housing Manager Name Role Phone Antonia Ovalle MD Primary Care Provider + Joshua Black PharmD Unavailable [phone] Encounter Details Date Type Department Care Team (Late Contact Info) Description 12/21/2022 Abstract [facility] MEDICINE [address] [place], [place] [phone] Antonia Ovalle MD [address] [place], [place] [phone] Social History Tobacco Use Types Packs/Day Years [...] Description 06/22/2025 3:30 PM EST Office Visit [facility] OPTOMETRY [address] [place], [place] [phone] Lorena Scott, OD [address] [place] [address] Arrived 08/04/2025 11:45 AM EST Office Visit [facility] MED[facility] [address] [place] [address] Antonia Ovalle MD [address] [place], [place] [phone] documented as of this encounter Goals Goal Patient Goal Type Associated Problems Recent Progress Patient-Stated? Author Blood Pressure < 140/90 Blood Pressure 142/66( 025 2:12 PM EST) No Joshua Black, Luisa documented as of this encounter Procedures Procedure Name Priority Date/Time Associated Diagnosis Comments COLONOSCOPY Routine 01/30/2019 2:31 PM EDT documented in this encounter Results * Hm Colonoscopy (01/30/2019 2:31 PM EDT) Colonoscopy Normal Normal Narrative Ashley Kern - 01/30/2019 2:31 PM EDT Recommended 5 year follow up ([facility]) us Historical Provider HEALTH MAINTENANCE Edited Result - Final documented in this encounter Visit Diagnoses Not on filedocumented in this encounter Care Teams Housing Manager Relationship Specialty Start Date End Date Antonia Ovalle MD [address] [place] [address] PCP - General Family Medicine 02/27/19 Joshua Black, PharmD [address] [place] [phone] Pharmacist Internal Medicine 10/16/22 documented as of this encounter
--- OUTSIDE RECORDS SUMMARY | 2025-06-12 12:35 | XMS_ITS | Clinical Summary ---
Author Organization [employer] Address [address] [facility] [address] [place] [address] Care Team Providers Care Solar Electric/Photovoltaic Installer Name Role Phone Melly Guevara MD Primary Care Provider + Joshua Black PharmD Unavailable [phone] Allergies Active Allergy Reactions Criticality Noted Date Comments Gramineae Pollens Itching 01/31/2022 Porcine (Pork) Protein Hives 07/02/2021 Porcine (Pork) Protein-Conta ining Drug Products Hives 07/02/2021 Shellfish Allergy 01/25/2023 Medications omega-3 (Fish Oil) 1000 MG capsule 2 capsules once daily OTC Active glucose (Glutose) 40 % gel oral gelIndications:T ype 2 diabetes mellitus without complication, with long-term current use of insulin ([facility]) Take 15 g by mouth if needed for low blood sugar. 60 g 3 023 Active omeprazole (PriLOSEC) [address] capsuleIndicatio ns:Gastroesophag eal reflux disease without esophagitis Take 1 capsule (20 mg) by mouth before breakfast. Do not crush or chew. 90 capsule 2 025 Active pen needle 33G x 4 mm misc Use as instructed 100 each 12 025 2025 Active FREESTYLE LITE test stripIndications :Type 2 diabetes, diet controlled (HCC) TEST BLOOD SUGAR THREE TIMES DAILY 100 strip 11 05/26/20 25 3:33 PM EST 025 Active loratadine (Claritin) 10 MG tabletIndication [...] crush, chew, or split. 60 tablet 5 025 Active levothyroxine (Synthroid, Levoxyl) 75 MCG tablet TAKE 1 TABLET BY MOUTH EVERY MORNING 30 tablet 5 Active metFORMIN (Glucophage) 850 MG tablet TAKE 1 TABLET BY MOUTH TWICE DAILY IN THE MORNING AND IN THE EVENING WITH FOOD 60 tablet 025 Active latanoprost (Xalatan) 0.005 % ophthalmic solution PLACE 1 DROP IN EACH EYE EVERY DAY AT BEDTIME 2.5 mL 06/09/20 25 1:04 PM EST Active prazosin (Minipress) 2 MG capsuleIndicatio ns:Benign prostatic hyperplasia without lower urinary tract symptoms TAKE 1 CAPSULE BY MOUTH AT BEDTIME 90 capsule 2 025 Active meloxicam (Mobic) 15 MG tablet TAKE 1 TABLET BY MOUTH ONCE DAILY 30 tablet 025 Active buPROPion XL (Wellbutrin XL) 300 MG 24 hr tabletIndication s:Anxiety TAKE 1 TABLET BY MOUTH EVERY MORNING 30 tablet 5 025 Active dilTIAZem SR (Cardizem SR) 120 MG 12 hr capsuleIndicatio ns:Primary hypertension TAKE 1 CAPSULE BY MOUTH EVERY EVENING 30 capsule 5 025 Active losartan-hydroCH LOROthiazide (Hyzaar) 100-25 MG tabletIndication s:Primary hypertension TAKE 1 TABLET BY MOUTH EVERY MORNING 30 tablet 5 025 Active insulin glargine (Lantus SoloStar) 100 UNIT/ML penIndications:T ype 2 diabetes mellitus without complication, with long-term current use of insulin (HCC) INJECT 35 UNITS SUBCUTANEOUSLY EVERY MORNING 15 mL 06/09/20 25 1:04 PM EST 025 Active ergocalciferol (Vitamin D2) 1.25 MG (02644 UT) capsule TAKE 1 CAPSULE BY MOUTH ONCE WEEKLY ON Sunday 12 capsule 1 12/04/2 025 Active Diclofenac Sodium 1 % gel APPLY 2 GRAMS TOPICALLY TO AFFECTED AREA(S) TWICE DAILY IN THE MORNING AND AT BEDTIME NEEDED FOR PAIN 100 g 1 Active aspirin 81 MG EC tablet Take 1 tablet (81 mg) by mouth Once per day. 90 tablet 3 Active aspirin 81 MG EC tablet Take 1 tablet (81 mg) by mouth Once per day. 90 tablet 3 024 2024 Discontinued(R eorder (will not trigger notification to Pharmacy)) ergocalciferol (Vitamin D2) 1.25 MG (66300 UT) capsule Take 1 capsule (1.25 mg) by mouth 1 (one) time per week. 12 capsule 1 025 2024 Discontinued insulin glargine (Lantus SoloStar) 100 UNIT/ML penIndications:T ype 2 diabetes mellitus without complication, with long-term current use of insulin (HCC) INJECT 30 UNITS SUBCUTANEOUSLY EVERY MORNING 15 mL 11 025 2024 Discontinued(R eorder (will not trigger notification to Pharmacy)) Diclofenac Sodium 1 % gel Apply 1 inch topically if needed in the morning and at bedtime (Pain). 60 g 025 2024 Discontinued Active Problems Problem Noted Date Diagnosed Date Overweight (BMI 25.0-29.9) 06/01/2025 Assessment & Plan (06/01/2025 2:52 PM EST): Discussed re weight reduction options including exercise, life style modifications, diet. Recommended to decrease soda and sugary beverage consumption, increase protein intake with meals (at least 1 portion of protein with each meal) to assist with satiety, increase dietary fiber Recommended at least 150 min/week of moderate intensity exercise. Elevated aldolase level 03/26/2025 Acute pain of [...] of colon 10/01/2024 Overview (10/01/2024): Colonoscopy at [facility] on 2019 Assessment & Plan (10/01/2024 7:29 PM EDT): S/p colonoscopy on 2019 at [facility] Localized gingival recession 02/07/2024 Missing teeth, acquired 02/07/2024 Calcaneal spur 01/17/2024 Assessment & Plan (06/01/2025 2:53 PM EST): Has recurrent plantar fasciitis, improving with diabetic shoes and inserts Assessment & Plan (10/01/2024 7:31 PM EDT): Doing well with supportive insoles Prescribed new Chooz as needed, patient will call back. Right foot pain 12/06/2023 Assessment & Plan (12/07/2023 2:23 PM EDT): Ro plantar spur, advised to use plantar insole with addt arch support FU with me in , we'll consider podiatry referral. Plantar fasciitis of right foot 12/06/2023 Assessment & Plan (06/01/2025 2:53 PM EST): Patient has a calcaneal spur but seems to be doing well with diabetic shoes and inserts Discussed with patient regarding importance of daily diabetic foot check due to history of diabetic neuropathy (much improved now with better control of DM) Assessment & Plan (12/07/2023 2:22 PM EDT): [...] improve muscle mass, advised re proper hydration. Encounter for preventive health examination 08/10 Assessment & Plan (10/01/2024 7:36 PM EDT): Discussed with patient re increase fresh fruit and vegetable intake. Counseled re moderate exercise as tolerated, up to 20min/d Patient feels safe at home. Eye exam: Up to date. Next one due . FU with ophthalmology at [facility] for glaucoma FU. CRC screen: Overdue, will [...] due January 2023. FU with ophthalmology at [facility] for glaucoma FU. CRC screen: Up to [...] to type 2 diabetes mellitus 0 08/25/2022 Assessment & Plan (06/01/2025 2:54 PM EST): Much improved now, continue tight control of DM We discussed about importance of daily diabetic foot check Recurrent major depression in partial remission 08/25/2022 Steatosis of liver 08/25/2022 Type 2 diabetes mellitus wit hout complication, with long-term current use of insulin 08/25/2022 Assessment & Plan (06/01/2025 2:52 PM EST): >>ASSESSMENT AND PLAN FOR TYPE 2 DIABETES MELLITUS WITHOUT COMPLICATION WRITTEN ON 08/30/2022 11:36 AM BY PATTI CESAR Controlled. A1c is at goal. Continue Metformin 850 BID + Lantus 45 units daily Counseled re more frequent low calorie/carb meals. Check fgstk daily Encouraged physical activity as tolerated. FU at next appointment. Assessment & Plan (06/01/2025 2:52 PM EST): >>ASSESSMENT AND PLAN FOR TYPE 2 DIABETES MELLITUS WITHOUT COMPLICATION WRITTEN ON 12/07/2023 2:17 PM BY MELLY GUEVARA MD >>ASSESSMENT AND PLAN FOR TYPE 2 DIABETES MELLITUS WITH HYPOGLYCEMIA WITHOUT COMA, WITH LONG-TERM CURRENT USE OF INSULIN ([facility]) WRITTEN ON 11/27/2022 5:33 PM BY PATTI CESAR Pt is symptomatic with 3 episodes within the past month. Decrease lantus to 40 units and use glucose gel PRN symptoms. Continue metformin and FU with me in 3 weeks. caution regarding hypoglycemia, to have small and frequent meals. Assessment & Plan (06/01/2025 2:52 PM EST): >>ASSESSMENT AND PLAN FOR TYPE 2 DIABETES MELLITUS WITHOUT COMPLICATION WRITTEN ON 01/02/2023 1:01 PM BY PATTI CESAR No further episode of hypoglycemia. FU in 2 months and check A1C continue metformin 850 BID + Lantus 40 units daily Counseled re more frequent low calorie/carb meals. Encouraged physical activity as tolerated. FU with me in 2 months Assessment & Plan (06/01/2025 2:52 PM EST): >>ASSESSMENT AND PLAN FOR TYPE 2 DIABETES MELLITUS WITHOUT COMPLICATION WRITTEN ON 05/28/2023 6:12 PM BY DEEDEE STAFFORD Controlled Will keep using Lantus 25 units Patient will continue monitoring Hypoglycemia Use glucose gel PRN No change in other medications Assessment & Plan (06/01/2025 2:52 PM EST): >>ASSESSMENT AND PLAN FOR TYPE 2 DIABETES MELLITUS WITHOUT COMPLICATION WRITTEN ON 12/07/2023 2:19 PM BY MELLY GUEVARA MD Controlled. Last A1c on 08/2023 was at goal. Continue on Lantus 25u/d + Metformin Counseled re more frequent low calorie/carb meals. Check fgstk 2x daily Encouraged physical activity as tolerated. FU in 3 months. Assessment & Plan (06/01/2025 2:52 PM EST): >>ASSESSMENT AND PLAN FOR TYPE 2 DIABETES MELLITUS WITHOUT COMPLICATION WRITTEN ON 10/01/2024 7:33 PM BY MELLY GUEVARA MD Controlled, A1c is at goal and no further episodes hypoglycemia. Continue Lantus 25 units/D+ metformin Check fgstk 2x daily Encouraged physical activity as tolerated. FU in 3 months. Order labs Assessment & Plan (06/01/2025 2:52 PM EST): >>ASSESSMENT AND PLAN FOR TYPE 2 DIABETES MELLITUS WITHOUT COMPLICATION WRITTEN ON 02/06/2025 2:49 PM BY MELLY GUEVARA MD Controlled, A1c is at goal and no further episodes hypoglycemia. Continue Lantus 30 units/D+ metformin Check fgstk 2x daily Encouraged physical activity as tolerated. FU in 3 months. Order labs Assessment & Plan (06/01/2025 2:52 PM EST): >>ASSESSMENT AND PLAN FOR TYPE 2 DIABETES MELLITUS WITHOUT COMPLICATION WRITTEN ON 03/16/2025 5:22 PM BY MELLY GUEVARA MD Fairly controlled, A1c is at goal. Continue Lantus 30 units/D+ metformin Check fgstk 2x daily Encouraged physical activity as tolerated. FU in 3 months. Order labs Assessment & Plan (06/01/2025 2:52 PM EST): Probably well controlled, follow-up A1c in 1 month Continue Lantus 35 units/D+ metformin Check fgstk 2x daily Encouraged physical activity as tolerated. FU in 3 months. Ophthalmology evaluation up-to-date, he has glaucoma and following up every 6 months Foot examination is UTD, no DM neuropathy today, advised to continue wearing diabetic shoes and inserts due to history of plantar fasciitis Primary open angle glaucoma (POAG) of both [...] activity as tolerated. FU in 3 months. Plantar ulcer of right foot, limited to breakdown of skin ([facility]) 05/28/2023 06/01/2025 Assessment & Plan (01/18/2024 1:30 PM EDT): On right foot, sec to tinea pedis. 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 Vaseline ointment on affected area and cover with donut type dressing F/u in 3 weeks PRN for complete solution Toenail bruise, left, subsequent encounter 08/30/2022 05/28/2023 [...] Encounters Date Type Department Care Team Description 06/11/2025 Refill [facility] [address] [facility] [place] [address] Melly Guevara MD 06/10/2025 Refill [facility] [address] [facility] [place] [address] Melly Guevara MD 06/09/2025 Telephone [facility] [address] [facility] [place] [address] Melly Guevara MD DME 06/01/2025 2:00 PM EST Office Visit [facility] [address] [facility] [place] [address] Melly Guevara MD Type 2 diabetes mellitus without complication, with long-term current use of insulin (HCC) (Primary Dx); Plantar fasciitis of right foot; Calcaneal spur of right foot; Overweight (BMI 25.0-29.9); Polyneuropathy due to type 2 diabetes mellitus (HCC); Dietary counseling; Exercise counseling; Encounter for immunization 06/01/2025 Travel 05/31/2025 Travel 05/29/2025 Telephone [facility] [address] [facility] [place] [address] Melly Guevara MD chart prep 05/09/2025 Refill [facility] [address] [facility] [place] [address] Melly Guevara MD Anxiety; Primary hypertension 04/16/2025 Refill [facility] [address] [place] [address] Melly Guevara MD 04/13/2025 Refill [facility] [address] [place] [address] Melly Guevara MD Benign prostatic hyperplasia without lower urinary tract symptoms 03/26/2025 Results Follow-Up [facility] [address] [place] [address] Melly Guevara MD XR Shoulder 2+ Views Left 03/23/2025 Telephone [facility] [address] [place] [phone] Melly Guevara MD 03/19/2025 2:30 PM EDT Office Visit [facility] [address] [place] [phone] Lorena Scott OD Type 2 diabetes mellitus without ophthalmic manifestations (CMS/HCC) (Primary Dx); Anatomical narrow angle of both eyes; Primary open angle glaucoma (POAG) of both eyes, mild stage; Congenital ectropion of iris; Presbyopia 03/19/2025 Travel 03/16/2025 4:00 PM EDT Office Visit [facility] [address] [place] [phone] Melly Guevara MD Tiredness (Primary Dx); Obstructive sleep apnea syndrome; Acute pain of left shoulder; Pain in other joint; Type 2 diabetes mellitus without complication, with long-term current use of insulin (CMS/HCC); Encounter for colorectal cancer screening 03/16/2025 Travel 03/13/2025 Telephone [facility] [address] [place] [phone] Melly Guevara MD Chart Prep from Last 3 Months Immunizations Immunization Administration Dates Next Due Hep B, adult 09/06/2021,06/01/2021,05/04/2021 Influenza Injectable Quadriv alant Preservative Free IIV4 MDCK 04/09/2023,05/04/2022,04/12/2021,04/21 Influenza, seasonal, injecta ble, preservative free 06/01/2025,05/16/2024 Moderna Covid-19 Vaccine 12+ 11/16/2021, 06/01/2021,11/17/2020,10/20 Pfizer Covid-19 Vaccine 12+ 06/01/2025,1 07/16/2023,09/04/2023,10/14,09/23/2020 Pfizer Covid-19 Vaccine 12+ Bivalent 05/04/2022 Pneumococcal [...] Sign Reading Time Taken Comments Blood Pressure 142/66 06/01/2025 2:12 PM EST Pulse 78 06/01/2025 2:12 PM EST Temperature 36.2 C (97.2 F) 06/01/2025 2:12 PM EST Respiratory Rate 16 06/01/2025 2:12 PM EST Oxygen Saturation 96% 06/01/2025 2: 12 PM EST Inhaled Oxygen Concentration - - Weight 68.9 kg (151 lb 12.8 oz) 06/01/2025 2:12 PM EST Height 157.5 cm (5' 2 ) 06/01/2025 2:12 PM EST Body Mass Index 27.76 06/01/2025 2:12 PM EST Plan of Treatment Upcoming Encounters Date Type Department Care Team (Late st Contact Info) Description 06/22/2025 3:30 PM EST Office Visit [facility] [address] [place] [address] Tarka, Lorena, OD [address] [place] [address] Arrived 08/04/2025 11:45 AM EST Office Visit [facility] [address] [place] [address] Melly Guevara MD [address] [place] [address] Health Maintenance Due Date Last Done Comments Anal Pap 1961 CT Colonography 1961 FIT DNA/Cologuard 1961 FIT 1961 FOBT 1961 Sigmoidoscopy 1961 Alcohol/Substance Use Screening 1973 Hepatitis A Vaccines (1 of 2 - Risk 2-dose series) 1980 Colonoscopy 01/31/2024 01/30/2019 Colorectal Cancer Screening 01/31/2024 Depression Screening 02/20/2024 02/19/2023, 02/20/20 Diabetes: Hemoglobin A1C 06/15/2025 025, 09/29/2024, 06/12/2024, [...] 25, 02/07/2024, 06/15/2022 Disability Screening 03/09/2026 03/09/2025 Tobacco Screening 03/24/2026 03/24/2025 Diabetes: Foot Exam 06/01/2026 06/01/2025, 06/01/2025, 06/01/2025, Additional history exists Eye Exam 03/19/2027 03/19/2025, 03/09, 03/19/2025, Additional history exists DTaP/Tdap/Td Vaccines (2 - Td or Tdap) 07/19/2030 07/19/2020, 01/17/2010, 01/17/2010 Zoster Vaccines Completed 06/23/2020, 04/21/2020 Hepatitis B Vaccines Completed 09/06/2021, 06/01/2021, 05/04/2021 Pneumococcal Vaccine: 50+ Years Completed 08/30/2022, 06/29/2009 RSV Patients and Patients Aged 60 years or older Completed 06/12/2024 HIV Screening Completed 10/04/2024 Hepatitis C Screening Completed 03/19/2025 , 10/04/2024, 04/27/2021 COVID-19 Vaccine Completed 06/01/2025, 02/2024, 09/04/2023, Additional history exists Influenza Vaccine Completed 06/01/2025, , 04/09/2023, Additional history exists HIB Vaccines Aged Out No longer eligi [...] manage their type 2 diabetes No Oxana Puryd MA Weekly blood pressure task Care Plan Weekly blood pressure task No Oxana Purdy MA Help patients manage their type 2 diabetes Care Plan Help patients manage their type 2 diabetes No Oxana Purdy MA Patient has chronic [...] Care Plan Weekly blood pressure task No Triana, Goldie, MA Weekly blood pressure task Care Plan Weekly blood pressure task No Triana, Goldie, MA Weekly blood pressure task Care Plan Weekly blood pressure task No Triana, Goldie, MA Patient has chronic kidney disease Care Plan Patient has chronic kidney disease No Triana, Goldie, MA Patient has chronic kidney disease Care Plan Patient has chronic kidney disease No Triana, Goldie, MA Patient has chronic kidney disease Care Plan Patient has chronic kidney disease No Triana, Goldie, [place] Patient has diabetic neuropathy Care Plan Patient has diabetic neuropathy No Triana, Goldie, MA Patient has diabetic neuropathy Care Plan Patient has diabetic neuropathy No Triana, Goldie, MA Patient has diabetic neuropathy Care Plan Patient has diabetic neuropathy No Triana, Goldie, MA Weekly blood pressure task Care Plan Weekly blood pressure task No Triana, Goldie, MA Weekly blood pressure task Care Plan Weekly blood pressure task No Triana, Goldie, MA Weekly blood pressure task Care Plan Weekly blood pressure task No Triana, Goldie, MA Patient has chronic kidney disease Care Plan Patient has chronic kidney disease No Triana, Goldie, MA Patient has chronic kidney disease Care Plan Patient has chronic kidney disease No Triana, Goldie, MA Patient has chronic kidney disease Care Plan Patient has chronic kidney disease No Triana, Goldie, MA Patient has diabetic neuropathy Care Plan Patient has diabetic neuropathy No Triana, Goldie, MA Patient has diabetic neuropathy Care Plan Patient has diabetic neuropathy No Triana, Goldie, MA Patient has diabetic neuropathy Care Plan Patient has diabetic neuropathy No Triana, Goldie, MA Weekly blood pressure task Care Plan Weekly blood pressure task No Melisa Liz, PharmD Weekly blood pressure task Care Plan Weekly blood pressure task No LizMelisa rodriguez, PharmD Weekly blood pressure task Care Plan Weekly blood pressure task No LizLesia rodriguezfer, PharmD Patient has chronic kidney disease Care Plan Patient has chronic kidney disease No Lesia Lizfer, PharmD Patient has chronic kidney disease Care Plan Patient has chronic kidney disease No Liz, Melisa, PharmD Patient has chronic kidney disease Care Plan Patient has chronic kidney disease No Liz, Melisa, PharmD Patient has diabetic neuropathy Care Plan Patient has diabetic neuropathy No Lesia Lizfer, PharmD Patient has diabetic neuropathy Care Plan Patient has diabetic neuropathy No Melisa Liz PharmD Patient has diabetic neuropathy Care Plan Patient has diabetic neuropathy No Melisa Liz PharmD Procedures Procedure Name Priority Date/Time Associated Diagnosis Comments POCT GLUCOSE Routine 06/01/2025 2:14 PM EST Type 2 diabetes mellitus without complication, with long-term current use of insulin (HCC) AMB REFERRAL TO RHEUMATOLOGY Routine 05/29/2025 Elevated aldolase level Pain of both shoulder joints XR SHOULDER 2+ VIEWS LEFT Routine 03/19/2025 [...] complication, with long-term current use of insulin ([facility]) POCT GLUCOSE Routine 03/16/2025 4:17 PM EDT Type 2 diabetes mellitus without complication, with long-term current use of insulin ([facility]) PROPHYLAXIS - ADULT Routine 02/10/2025 3 :00 [...] complication, with long-term current use of insulin ([facility]) ALBUMIN, RANDOM URINE W/CREATININE Routine 10/04/2024 8:50 AM EDT Type 2 diabetes mellitus without complication, with long-term current use of insulin ([facility]) INTRAORAL - COMPLETE SERIES OF RADIOGRAPHIC IMAGES Routine 06/15/2022 8:00 AM EST Encounter for dental examination and cleaning with abnormal findings HM COLONOSCOPY Routine 01/30/2019 2:31 PM EDT from Last 3 Months or Most Recently Relevant to Health Maintenance Results * POCT Glucose (06/01/2025 2:14 PM EST) Only the most recent of2 resultswithin the time period is included. Glucose Blood, POC 125 60 - 200 mg/dL QC Media Lot # [id number] Lot# Expiration Date Blood Capillary blood specimen / Unknown 06/01/2025 2:14 PM EST Melly Guevara MD POINT OF CARE TEST ENTER /EDIT ORDERABLES Final Result * Referral to Rheumatology (05/29/2025) Melly Guevara MD OUTPATIENT REFERRAL ORDE RABLES Final Result * XR Shoulder 2+ Views Left (03/19/2025 3:04 PM EDT) Anatomical Region Laterality Modality Upper Extremities, Shoulder Left Radi ographic Imaging 03/19/2025 3:04 PM EDT Narrative 03/19/2025 3:17 PM EDT [place] [address] XRay Report Signed Patient: Isaac Bonilla MR#: [id number] 48 : 1960 Acct:[id number] Age/Sex: 64 / M ADM Date: 03/19/25 Loc: [facility] Attending Dr: Melly Guevara MD Ordering Physician: Melly Guevara MD Date of Service: 03/19/25 Procedure(s): XR shoulder LT min 2V Accession Number(s): [id number] cc: Melly Guevara MD Reason for Exam: left shoudler pain/decreased [...] 03/19/25 1514 DD/ 1504 TD/TT: 03/19/25 1505 Feed Mixer Helper: Procedure Note Donotuseinterpreter, Image - 03/19/[address] [address] XRay Report Signed Patient: Isaac BonillaMR#: [id number] 48 : 1960cct:[id number] Age/Sex: 64 / MADM Date: 03/19/25 Loc: [facility] Attending Dr: Melly Guevara MD Ordering Physician: Melly Guevara MD Date of Service: 03/19/25 Procedure(s): XR shoulder LT min 2V Accession Number(s): [id number] cc: Melly Guevara MD Reason for Exam: left shoudler pain/decreased [...] 03/19/25 1514 DD/ 1504 TD/TT: 03/19/25 1505 Feed Mixer Helper: Melly Guevara MD IMG XR PROCEDURES Final Result * Vitamin D, 25-Hydroxy, Total, Immunoassay (03/19/2025 1:52 PM EDT) Vitamin D 25-OH Total 66.0 >30 ng/mL [facility] Comment: Health Based Reference Values*< 20 ng/mL [id number] ng/mL Insufficient> 30 ng/mL Sufficient*Rossi SHEARER. N [...] EDT 03/19/2025 4:03 PM EDT us Melly Guevara MD LAB BLOOD ORDERABLES Fin al Result [facility] [address] [place] [phone] * Hepatitis Panel, General (03/19/2025 1:52 PM EDT) Hepatitis A IgM Nonreactive Nonreactive [facility] Comment:IgM antibodies to NOYOLA V not detected; does not exclude earlyacute or recovered HAV infection. ~Hepatitis B Surface Antibody NONREACTIVE Nonreactive [facility] Comment:Nonreactive: < 8.00 mIU/mL Hepatitis B Core Antibody Nonreactive Nonreactive [facility] Hepatitis C Antibody Nonreactive Nonreactive [facility] Comment:Antibodies to HCV no t detected; does not exclude early acuteHCV infection. Hepatitis B Surface Ag Negative Negative [facility] Blood 03/19/2025 1:52 PM EDT 03/19/2025 4:03 PM EDT us Melly Guevara MD LAB BLOOD ORDERABLES Fin al Result [facility] [address] [place] [phone] [phone] * (ABNORMAL) CBC auto differential (03/19/2025 1:52 PM EDT) White Blood Count 6.3 4.8 - 10.8 X10*3/uL [facility] Red Blood Count 4.69 4.60 - 5.80 X10*6/uL [facility] Hemoglobin 13.6(L) 14.0 - 18.0 g/dl [facility] Hematocrit 39.5(L) 42.0 - 52.0 % [facility] Mean Corpuscular Volume 84.2 80.0 - 98.0 fL [facility] Mean Corpuscular Hemoglobin 29.0 27.0 - 33.0 pg [facility] Mean Corpuscular HGB Conc 34.4 31.0 - 36.0 g/dl [facility] [facility] Red Cell Distribution Width 13.8 11.0 - 16.0 % [facility] Platelet Count 237 160 - 400 X10*3/uL [facility] Mean Platelet Volume 9.5 9.4 - 12.4 fL [facility] Neutrophils Percent Auto 52.4 45 - 73 % [facility] Imm Gran Pct Auto 0.5(H) 0.0 - 0.4 % [facility] Lymphocytes Percent Auto 33.9 20 - 40 % [facility] Monocytes Percent Auto 9.4 2 - 11 % [facility] Eosinophils Percent Auto 3.2 0 - 4 % [facility] Basophils Percent Auto 0.6 0 - 2 % [facility] NRBC Pct Auto 0.0 0.0 - 0.2 /100WBC [facility] Neutrophils Absolute Auto 3.3 2.0 - 8.3 x10*3/uL [facility] Imm Gran Abs Auto 0.03 0.00 - 0.03 X10*3/uL [facility] Lymphocytes Absolute Auto 2.1 1.2 - 4.9 X10*3/uL [facility] Monocytes Absolute Auto 0.6 0.1 - 1.2 X10*3/uL [facility] Eosinophils Absolute Auto 0.2 0.0 - 0.4 X10*3/uL [facility] Basophils Absolute Auto 0.0 0.0 - 0.2 X10*3/uL [facility] NRBC Abs Auto 0.000 0.0 - 0.012 X10*3/uL [facility] Blood Venous blood specimen / Unknown 03/19/2025 1:52 PM EDT 03/19/2025 4:03 PM EDT Melly Guevara MD LAB BLOOD ORDERABLES Fin al Result [facility] [address] [place] [phone] * Cyclic Citrullinated Peptide (CCP) Antibody (IgG) (03/19/2025 1:52 PM EDT) Cyclic Citrullinated Peptide <16 UNITS [facility] Comment:Reference RangeNegat ike: <20Weak Positive: 20-39Moderate Positive: 40-59Strong Positive: >59THIS TEST WAS PERFORMED AT:[facility] [address] [id number] PAZ MD Blood Venous blood specimen / Unknown 03/19/2025 1:52 PM EDT 03/19/2025 4:03 PM EDT Melly Guevara MD LAB BLOOD ORDERABLES Fin al Result Performing Organization Address [facility]/ZIP Co de Phone Number [facility] [address] [place] [phone] [phone] * (ABNORMAL) Aldolase (03/19/2025 1:52 PM EDT) Aldolase 9.0(A) <=8.1 U/L [facility] Comment:THIS TEST WAS PERFOR MED AT:[facility]/[id number] [place] [address]WIMPECIJAY LYLES MD,PHD Blood Venous blood specimen / Unknown 03/19/2025 1:52 PM EDT 03/19/2025 4:03 PM EDT us Melly Guevara MD LAB BLOOD ORDERABLES Fin al Result Performing Organization Address [facility] Co de Phone Number [facility] [address] [place] [phone] * Sed Rate by Modified Bernyren (03/19/2025 1:52 PM EDT) [facility] Erythrocyte Sedimentation Rate 4 0 - 15 MM/HR [facility] Comment:Patients with polycy themia and many hemoglobin abnormalitiesmay have depressed sed rates whereas patients with anemiamay have elevated sed rates. Blood Venous blood specimen / Unknown 03/19/2025 1:52 PM EDT 03/19/2025 4:03 PM EDT us Melly Guevara MD LAB BLOOD ORDERABLES Fin al Result Performing Organization Address [facility] Co de Phone Number [facility] [address] [place] [address] [phone] * Anti-DNAse B antibody (03/19/2025 1:52 PM EDT) Pathologist [facility] DNAse B Ab <95 <301 U/mL [facility] Comment:THIS TEST WAS PERFOR MED AT:[facility]/[id number] [place] [address]ZRWSFRAFAEL STERLING MD,PHD,HUBERT Blood Venous blood specimen / Unknown 03/19/2025 1:52 PM EDT 03/19/2025 4:03 PM EDT us Melly Guevara MD LAB BLOOD ORDERABLES Fin al Result Performing Organization Address [facility] Co de Phone Number [facility] [address] [place] [phone] * Rheumatoid Factor (03/19/2025 1:52 PM EDT) Rheumatoid Factor <13.0 <15.0 IU/mL [facility] Blood Venous blood specimen / Unknown 03/19/2025 1:52 PM EDT 03/19/2025 4:03 PM EDT us Melly Guevara MD LAB BLOOD ORDERABLES Fin al Result Performing Organization Address [facility] Co de Phone Number [facility] [address] [place] [phone] * C-reactive Protein (03/19/2025 1:52 PM EDT) C Reactive Protein 0.12 < or = 0.50 mg/dL [facility] Blood Venous blood specimen / Unknown 03/19/2025 1:52 PM EDT 03/19/2025 4:03 PM EDT Melly Guevara MD LAB BLOOD ORDERABLES Fin al Result Performing Organization Address [facility] Co de Phone Number [facility] [address] [place] [phone] * (ABNORMAL) MELLY Screen,IFA, with Reflex to Titer and Pattern (03/19/2025 1:52 PM EDT) Anti Nuclear Antibody Screen POSITIVE (A) NEGATIVE [facility] Comment:MELLY IFA is a first l ine screen for detecting thepresence of up to approximately 150 autoantibodies invarious autoimmune diseases. A positive MELLY IFA resultis suggestive of autoimmune disease and reflexes totiter and pattern. Further laboratory testing may beconsidered if clinically indicated.For additional information, please refer [email or web address](This link is being provided for informational/educational purposes only.) MELLY Titer 1:160(A) titer [facility] Comment:Reference Range <1:4 0 Negative 1:40-1:80 Low Antibody Level >1:80 Elevated Antibody Level MELLY Pattern (A) [facility] Comment:Cytoplasmic, Dense F ine Speckled Abnormal Flag: AThe pattern appears cloudy, almost homogeneousthroughout the cytoplasm (e.g., anti-PL-7, PL-12,ribosomal P proteins). Pattern is associated withanti-synthetase syndrome, polymyositis/dermatomyositis,systemic lupus erythematosus (SLE), juvenile SLE, andneuropsychiatric SLE.AC-19: Dense Fine SpeckledInternational Consensus on MELLY Patterns(https://doi.org/10.1515/wmqv-2104-0909)THIS TEST WAS PERFORMED AT:[facility] [address] [place] [id number] PAZ MD MELLY Titer 2 TNP [facility] MELLY Pattern 2 [facility] MELLY TITER 3 [facility] MELLY PATTERN 3 TNP [facility] Blood Venous blood specimen / Unknown 03/19/2025 1:52 PM EDT 03/19/2025 4:03 PM EDT Melly Guevara MD LAB BLOOD ORDERABLES Fin al Result [facility] [address] [place] [phone] * Uric acid (03/19/2025 1:52 PM EDT) Pathologist [facility] Uric Acid 5.9 3.4 - 7.0 mg/dL [facility] Blood Venous blood specimen / Unknown 03/19/2025 1:52 PM EDT 03/19/2025 4:03 PM EDT Melly Guevara MD LAB BLOOD ORDERABLES Fin al Result Performing Organization Address City/[facility]/ZIP Co de Phone Number [facility] [address] [place] [phone] * (ABNORMAL) Creatine Kinase, Total (03/19/2025 1:52 PM EDT) [facility] Creatine Kinase Total 390(H) 38 - 174 U/L [facility] Blood Venous blood specimen / Unknown 03/19/2025 1:52 PM EDT 03/19/2025 4:03 PM EDT Melly Guevara MD LAB BLOOD ORDERABLES Fin al Result Performing Organization Address [facility] Co de Phone Number [facility] [address] [place] [phone] * (ABNORMAL) POCT Hgb A1c (03/16/2025 4:17 PM EDT) [facility] Hemoglobin A1C 7.2(A) 4.0 - 5.7 % QC Media Lot # [id number] Lot# Expiration Date 991 Blood 03/16/2025 4:17 PM EDT Melly Guevara MD POINT OF CARE TEST ENTER /EDIT ORDERABLES Final Result * Lipid Panel with Reflex to Direct LDL (10/04/2024 8:54 AM EDT) Pathologist [facility] Triglycerides 138 <150 mg/dL [facility] Comment:Desirable Triglyceri de: less than 150 mg/dLBorderline High Triglyceride 150-199 mg/dLHigh Triglyceride: 200-499 mg/dLVery High Triglyceride: greater than or equal to 5OO mg/dL Cholesterol 170 <200 mg/dL [facility] Comment:Desirable Cholestero l: less than 200 mg/dLBorderline High Cholesterol: 200-239 mg/dLHigh Cholesterol: greater than 239 mg/dL LDL Cholesterol Calculated 96 <100 mg/dL [facility] Comment:Desirable LDL: less than 100 mg/dLNear Optimal/Above Optimal LDL: 110- 129 mg/dLBorderline High LDL: 130-159 mg/dLHigh LDL: 160-189 mg/dLVery High LDL: greater than or equal to 190 mg/dL HDL Cholesterol 47 >40 mg/dL [facility] Comment:Desirable HDL: great er than 40 mg/dL Note: This HDL assay may give artificially low results in patients with liver disease. Blood 10/04/2024 8:54 AM EDT 10/04/2024 8:54 AM EDT Melly Guevara MD LAB BLOOD ORDERABLES Fin al Result [facility] [address] [place] [phone] * HIV-1/2 Antigen and Antibodies, Fourth Generation, with Reflexes (10/04/2024 8:54 AM EDT) HIV AB/AG Nonreactive Nonreactive [facility] Comment:HIV-1 p24 Ag and/or HIV-1/HIV-2 Ab not detected.A test result that is nonreactive does not exclude thepossibility of exposure to or infection with HIV-1 and/orHIV-2. Nonreactive results in this assay for individualswith prior exposure to HIV-1 and/or HIV-2 may be due toantigen and antibody levels that are below the limit ofdetection of this assay.The [employer] HIV Ag/Ab Combo assay result andsupplemental assay results should be interpreted inconjunction with the patient's clinical presentation,history and other laboratory results. If the results areinconsistent with clinical evidence, additional testing issuggested to confirm the result. Blood Venous blood specimen / Unknown 10/04/2024 8:54 AM EDT 10/04/2024 8:54 AM EDT Melly Guevara MD LAB BLOOD ORDERABLES Fin al Result Performing Organization Address [facility] Co de Phone Number [facility] [address] [place] [phone] * Albumin, Random Urine W/Creatinine (10/04/2024 8:50 AM EDT) Creatinine, Urine 166.71 mg/dL [facility] Microalbumin Urine 13.0 mg/L [facility] Microalbum Creatinine Ratio Ur 7.7 <30 ug/mg cr [facility] Comment:Albumin/Creatinine R atio Reference Ranges: Normal: < 30 ug/mg creatinine Microalbuminuria: 30 - 300 ug/mg creatinineClinical Albuminuria: > 300 ug/mg creatinine Urine (Urine, Random) 10/04/2024 8:50 AM EDT 10/04/2024 11:03 AM EDT Melly Guevara MD LAB URINE ORDERABLES Fin al Result Performing Organization Address [facility] Co de Phone Number [facility] [address] [place] [phone] * Hm Colonoscopy (01/30/2019 2:31 PM EDT) Colonoscopy Normal Normal Narrative Concha Ashley - 01/30/2019 2:31 PM EDT Recommended 5 year follow up ([facility]) us Historical Provider HEALTH MAINTENANCE Edited Result - Final from Last 3 Months or Most Recently Relevant to Health Maintenance Additional Health Concerns Active Problems Noted Date [...] neuropathy 06/11/2025 Patient has diabetic neuropathy 06/11/2025 Insurance [facility] PL[facility]ENT[facility] - HSN PARTIAL (MEDICAID) Care Teams Solar Electric/Photovoltaic Installer Relationship Specialty Start Date End Date Melly Guevara MD [address] [place] [address] PCP - General Family Medicine 02/27/19 Joshua Black, Luisa [address] [place], [place] Pharmacist Internal Medicine 10/16/22
--- OUTSIDE RECORDS SUMMARY | 2025-06-12 12:35 | XMS_ITS | Encounter Summary ---
Author Organization [employer] Address [address] [place] [address] Care Team Providers Care Swine Genetics Researcher Name Role Phone Antonia Ovalle MD Primary Care Provider + Joshua Black PharmD Unavailable [phone] Reason for Visit * Reason Comments Med Refill Encounter Details Date Type Department Care Team (Late st Contact Info) Description 06/10/2025 Refill [facility] [address] [place], [place] [phone] Antonia Ovalle MD [address] [place], [place] [phone] Social History Tobacco Use Types Packs/Day Years [...] [facility] OPTOMETRY [address] [place] [address] Lorena Scott, OD [address] [place] [address] Arrived 08/04/2025 11:45 AM EST Office Visit [facility] [address] [place] [address] Antonia Ovalle MD [address] [place] [address] documented as of this encounter Goals Goal [...] neuropathy Care Plan Patient has diabetic neuropathy Goldie Lucero [place] documented as of this encounter Visit Diagnoses [...] neuropathy 06/09/2025 Patient has diabetic neuropathy 06/09/2025 Assessment Noted Time PHQ-9 Depression Total Score: 6 02/20/20 23 4:22 PM EDT documented as of this encounter Care Teams Swine Genetics Researcher Relationship Specialty Start Date End Date Antonia Ovalle MD [address] [place] [address] PCP - General Family Medicine 02/27/19 Joshua Black, Luisa [address] [place] [address] Pharmacist Internal Medicine 10/16/22 documented as of this encounter
--- OUTSIDE RECORDS SUMMARY | 2025-06-12 12:35 | XMS_ITS | Encounter Summary ---
Author Organization [employer] Address [address] [place] [address] Care Team Providers Care Wheel Worker Name Role Phone Antonia Ovalle MD Primary Care Provider + Joshua Black PharmD Unavailable [phone] Reason for Visit * Reason Comments Med Refill Encounter Details Date Type Department Care Team (Late st Contact Info) Description 01/20/2025 Refill [facility] MEDICINE [address] [place], [place] [phone] Antonia Ovalle MD [address] [place], [place] [phone] Social History Tobacco Use Types Packs/Day Years [...] Description 06/22/2025 3:30 PM EST Office Visit [facility] OPTOMETRY [address] [place] [address] Lorena Scott, OD [address] [place] [address] Arrived 08/04/2025 11:45 AM EST Office Visit [facility] [address] [place] [address] Antonia Ovalle MD [address] [place] [address] documented as of this encounter Goals Goal [...] as of this encounter Care Teams Wheel Worker Relationship Specialty Start Date End Date Antonia Ovalle MD [address] [place] [address] PCP - General Family Medicine 02/27/19 Joshua Black, NathalieD [address] [place] [address] Pharmacist Internal Medicine 10/16/22 documented as of this encounter
--- OUTSIDE RECORDS SUMMARY | 2025-06-12 12:35 | XMS_ITS | Encounter Summary ---
Author Organization [employer] Address [address] [place] [address] Care Team Providers Care Brainer Name Role Phone Antonia Ovalle MD Primary Care Provider + Joshua Black PharmD Unavailable [phone] Reason for Visit * Reason Comments Med Refill Encounter Details Date Type Department Care Team (Late st Contact Info) Description 09/26/2023 Refill [facility] [address] [place], [place] [phone] Antonia Ovalle MD [address] [place], [place] [phone] Social History Tobacco Use Types Packs/Day Years [...] [facility] OPTOMETRY [address] [place] [address] TarkaSharonLorena, OD [address] [place] [address] Arrived 08/04/2025 11:45 AM EST Office Visit [facility] MEDICINE [address] [place] [phone] Antonia Ovalle MD [address] [place] [phone] documented as of this encounter Goals Goal [...] documented as of this encounter Care Teams Brainer Relationship Specialty Start Date End Date Antonia Ovalle MD [address] [place] [phone] PCP - General Family Medicine 02/27/19 Joshua Black PharmD [address] [place] [phone] Pharmacist Internal Medicine 10/16/22 documented as of this encounter
--- OUTSIDE RECORDS SUMMARY | 2025-06-12 12:35 | XMS_ITS | Encounter Summary ---
Author Organization [employer] Address [address] [place] [address] Care Team Providers Care Stonework Tracer Name Role Phone Antonia Ovalle MD Primary Care Provider + Joshua Black PharmD Unavailable [phone] Reason for Visit * Reason Onset Date Comments DME 06/09/2025 Encounter Details Date Type Department Care Team (Late st Contact Info) Description 06/09/2025 Telephone [facility] MEDICINE [address] [place], [place] [phone] Antonia Ovalle MD [address] [place], [place] [phone] DME Social History Tobacco Use Types Packs/Day Years [...] encounter Miscellaneous Notes * Telephone Encounter - Goldie Triana [place] - 06/09/2025 8:40 AM EST DME for diabetic shoes signed and faxed to [facility] . Confirmation received and sent to scan. If patient calls to check status on above, please advise them to contact [facility] at [phone]. documented in this encounter Plan of Treatment Upcoming Encounters Date Type Department Care Team (Late st Contact Info) Description 06/22/2025 3:30 PM EST Office Visit [facility] OPTOMETRY [address] [place] [address] Lorena Scott, OD [address] [place] [address] Arrived 08/04/2025 11:45 AM EST Office Visit [facility] MEDICINE [address] [place] [address] Antonia Ovalle MD [address] [place] [address] documented as of this encounter Goals Goal Patient Goal Type Associated Problems Recent Progress Patient-Stated? Author Blood Pressure < 140/90 Blood Pressure 142/66(2024 2:12 PM EST) Joshua Nuno, Luisa Help patients manage their type 2 diabetes Care Plan Help patients manage their type 2 diabetes No Oxana Purdy [place] Weekly blood pressure [...] Care Plan Patient has diabetic neuropathy No Oxaan Purdy [place] Weekly blood pressure task Care [...] has diabetic neuropathy No Goldie Triana [place] documented as of this encounter Visit [...] documented as of this encounter Care Teams Stonework Tracer Relationship Specialty Start Date End Date Antonia Ovalle MD [address] [place] [address] PCP - General Family Medicine 02/27/19 Joshua Black PharmD [address] [place] [address] Pharmacist Internal Medicine 10/16/22 documented as of this encounter
--- OUTSIDE RECORDS SUMMARY | 2025-06-12 12:35 | XMS_ITS | Encounter Summary ---
Author Organization [employer] Address [address] [place] [address] Care Team Providers Care Pediatric Dietician Name Role Phone Antonia Ovalle MD Primary Care Provider + Joshua Black PharmD Unavailable [phone] Reason for Visit * Reason Comments Med Refill Encounter Details Date Type Department Care Team (Late st Contact Info) Description 11/23/2024 Refill [facility] MEDICINE [address] [place], [place] [phone] Antonia Ovalle MD [address] [place], [place] [phone] Primary hypertension Social History Tobacco Use Types [...] Description 06/22/2025 3:30 PM EST Office Visit [facility] OPTOMETRY [address] [place] [address] Lorena Scott, OD [address] [place] [address] Arrived 08/04/2025 11:45 AM EST Office Visit [facility] MEDICINE [address] [place] [address] Antonia Ovlale MD [address] [place] [address] documented as of this encounter Goals Goal Patient Goal Type Associated Problems Recent Progress Patient-Stated? Author Blood Pressure < 140/90 Blood Pressure 142/66( 025 2:12 PM EST) Joshua Nuno, PharmD documented as of this encounter Visit Diagnoses Diagnosis Primary hypertension Unspecified essential hypertension documented in this encounter Additional Health Concerns Assessment Noted Time PHQ-9 Depression Total Score: 6 02/20/20 23 4:22 PM EDT documented as of this encounter Care Teams Pediatric Dietician Relationship Specialty Start Date End Date Antonia Ovalle MD [address] [place], [place] [phone] PCP - General Family Medicine 02/27/19 Joshua Black, NathalieD [address] [place] [address] Pharmacist Internal Medicine 10/16/22 documented as of this encounter
--- NOTE | 2025-06-15 11:02 | HO.ANESPROP2 ---
Documented by User: Marva Mcintyre NP 06/15/25 11:04 HPI - Anesthesia Eval Consult details Narrative: 64 yr old male for Upper Endoscopy and Colonoscopy ?sleep apnea PMFSH Active Problems Active Problems: All Active Problems (Updated 12/19/24 @ 16:26 by Jacki Vela CNP) GERD (gastroesophageal reflux disease) (Acute) Colon cancer screening (Acute) BPH loc w urin obs/LUTS (Acute) Weak urinary stream (Acute) Incomplete emptying of bladder due to benign prostatic hyperplasia (Acute) Past Medical History Medical History Colon cancer screening Diabetes Thyroid disease GERD (gastroesophageal reflux disease) Lab test negative for COVID-19 virus Sleep apnea Elevated cholesterol HTN (hypertension) Surgical History Surgical History H/O colonoscopy Social History Social History Are you a primary senior care assistant to a significant other at home: No Do you presently have visiting nurse or other home services: No Alcohol intake: never Patient Tobacco Use Status: Never used Tobacco Have you been hit, kicked, punched, or otherwise hurt by someone within the past year? If so, by whom?: No Are you DNR?: No Advance Directives: No Advance Directives Information Provided: Yes Meds Allergies Allergy/AdvReac Type Severity Reaction Status Date / Time pork Allergy Intermediate Hives Uncoded 06/17/25 08:44 Home Medications ?Medication ?Instructions ?Recorded ?Confirmed ?Last Taken ?Type levothyroxine 88 mcg tablet 88 mcg PO DAILY 06/21/20 06/15/25 06/17/25 History metformin 850 mg tablet 850 mg PO BID 06/21/20 06/15/25 Unknown History vitamin W94-xshmzohlx factor 110 1 cap PO DAILY 06/21/20 06/15/25 Unknown History mg-0.5 mg capsule losartan 100 1 tab PO DAILY 02/16/21 06/15/25 Unknown History mg-hydrochlorothiazide 12.5 mg tablet diltiazem HCl 120 mg 120 mg PO QPM 02/15/22 06/15/25 Unknown History tablet,extended release 24 hr (Cardizem LA) lancets 33 gauge (TRUEplus Lancets) #100 ea 02/15/22 12/19/24 Unknown History rosuvastatin 10 mg tablet 10 mg PO BEDTIME 02/15/22 06/15/25 Unknown History aspirin 81 mg tablet 81 mg PO DAILY 12/19/24 06/15/25 Unknown History insulin glargine 100 unit/mL (3 30 unit subcut QAM 12/19/24 06/15/25 Unknown History mL) subcutaneous pen (Lantus Solostar U-100 Insulin) omega 0-wrp-mxe-fish oil 300 2 cap PO DAILY 12/19/24 06/15/25 Unknown History mg-1,000 mg capsule (Fish Oil) Documented by User: Amarilis Cohn MD 06/17/25 09:17 [facility] Past Medical History Medical History Colon cancer screening Diabetes Thyroid disease GERD (gastroesophageal reflux disease) Lab test negative for COVID-19 virus Sleep apnea Elevated cholesterol HTN (hypertension) Family History Family history of problems with anesthesia: No Surgical History Surgical History H/O colonoscopy History of Problems with Anesthesia: No Social History Social History Are you a primary senior care assistant to a significant other at home: No Do you presently have visiting nurse or other home services: No Alcohol intake: never Patient Tobacco Use Status: Never used Tobacco Have you been hit, kicked, punched, or otherwise hurt by someone within the past year? If so, by whom?: No Are you DNR?: No Advance Directives: No Advance Directives Information Provided: Yes Meds Allergies Allergy/AdvReac Type Severity Reaction Status Date / Time pork Allergy Intermediate Hives Uncoded 06/17/25 08:44 Home Medications ?Medication ?Instructions ?Recorded ?Confirmed ?Last Taken ?Type levothyroxine 88 mcg tablet 88 mcg PO DAILY 06/21/20 06/15/25 06/17/25 History metformin 850 mg tablet 850 mg PO BID 06/21/20 06/15/25 Unknown History vitamin G93-xxvaxfbna factor 110 1 cap PO DAILY 06/21/20 06/15/25 Unknown History mg-0.5 mg capsule losartan 100 1 tab PO DAILY 02/16/21 06/15/25 Unknown History mg-hydrochlorothiazide 12.5 mg tablet diltiazem HCl 120 mg 120 mg PO QPM 02/15/22 06/15/25 Unknown History tablet,extended release 24 hr (Cardizem LA) lancets 33 gauge (TRUEplus Lancets) #100 ea 02/15/22 12/19/24 Unknown History rosuvastatin 10 mg tablet 10 mg PO BEDTIME 02/15/22 06/15/25 Unknown History aspirin 81 mg tablet 81 mg PO DAILY 12/19/24 06/15/25 Unknown History insulin glargine 100 unit/mL (3 30 unit subcut QAM 12/19/24 06/15/25 Unknown History mL) subcutaneous pen (Lantus Solostar U-100 Insulin) omega 3-ugg-wyd-fish oil 300 2 cap PO DAILY 12/19/24 06/15/25 Unknown History mg-1,000 mg capsule (Fish Oil) Exam Airway Mallampati Class: II (missing a couple, denies anything loose) TM Dist: >3cm Neck ROM: Full Heart: rrr Lungs: cta Assessment and Plan Assessment Anesthesia Assessment: Anesthesia Plan Discussed and Chart Reviewed Final Anesthetic Review Family History of Problems with Anesthesia: No History of Problems with Anesthesia: No NPO: Yes ASA Class: III Final Preanesthetic Review: No Changes in Pt Med Stat, Meds/Allgs Chart Reviewed and Consent Obtained/Reviewed Patient Risk: Intermediate Procedure Risk: Intermediate Anesthetic Plan Anesthetic Plan: MAC: Disposition: Standard PACU
[2025-06-15 12:55] VITALS: BMI 27.4
[2025-06-17 08:43] VITALS: BMI 27.6
[2025-06-17] MEDS: Lactated Ringers 1,000 ML 100 ML IVCONT (08:56)
[2025-06-17 09:01] VITALS: BP 158/84; PULSE 71; RESP 18; TEMP 36.9; O2SAT 99
[2025-06-17 09:24] LABS: Glucose, Whole Blood 137 mg/dL (60-115)
--- NOTE | 2025-06-17 09:35 | MHC.SHP ---
Pre-Procedural Eval Section A - 24 Hr Update-Section A only Date of Service: 06/17/25 Section B - Complete if H&P > 30 days Chief Complaint: gerd,polyp of colon Relevant Family History (Specify if Yes): No Relevant Social History: None Present Medications: see Short Stay Collaborative assessment Medical History: Significant History (Diabetes Thyroid disease GERD (gastroesophageal reflux disease) Lab test negative for COVID-19 virus Sleep apnea Elevated cholesterol HTN (hypertension)) History of Previous Operations: Relevant previous surgery/procedure and date(s) ( H/O colonoscopy) Allergies: Allergies Allergy/AdvReac Type Severity Reaction Status Date / Time pork Allergy Intermediate Hives Uncoded 06/17/25 08:44 Review of Systems Sugical H&P ROS: Negative: Constitution, Cardiovascular, Respiratory, Neurological, Psychiatric, Hem-Onc, Allergic/Immunologic, Gastrointestinal, Genitourinary, Musculoskeletal, Integumentary, Endocrine and Eyes/Ears/Nose/Throat Exam Surgical H&P Exam: Normal: HEENT, Normal: Heart, Normal: Lungs, Normal: Extremities, Normal: Abdomen, Normal: Skin and Normal: Neurological Plan Diagnosis/Plan: Unchanged I have reviewed the history and physical and performed a pertinent physical examination on my patient. No changes have occurred unless specified. Time Spent With Patient Time: Total time managing care of this patient today ____ minutes.
--- NOTE | 2025-06-17 10:16 | HO.OPN-COLON ---
Colonoscopy Operative Note Operative Note Date of Service: 06/17/25 Narrative: Operative Information Procedure Description: EGD, Colonoscopy Indication: gerd, screening Anesthesia: [] FLEXIBLE TRANSORAL UPPER GASTROINTESTINAL ENDOSCOPY AND COLONOSCOPY PROCEDURE NOTE UPPER ENDOSCOPY Consent: Indications for the procedure and potential complications of bleeding, perforation, reaction to medications and missed diagnosis were discussed with the patient and informed consent was obtained. Instrument: Olympus GIF H 190 J mid size upper endoscope Monitoring: Vital signs and clinical assessment, continuous EKG monitoring, Pulse oximetry, Carbon Dioxide monitoring and blood pressure monitoring were done throughout the procedure. Procedure: The patient was placed in the left lateral decubitis position and pre-procedure medications were administered and a bite block was placed. The endoscope was inserted into the mouth and advanced under direct vision to the third part of duodenum. A careful inspection was made as the upper endoscope was withdrawn including a retroflexed examination of the proximal stomach; Findings and interventions are described below. Findings: Larynx:normal Esophagus: GE junction at 35 cm, diaphragm hiatus at 37 cm, consistent with 2 cm sliding hiatal hernia, small erosion noted with mild esophagitis, bx taken from GEJ and distal esophagus Stomach: patchy erythema. Biopsies were obtained. Grade 2 flap valve on retroflexed examination of the cardia. Duodenum: Normal bulb and descending duodenum, Intervention: Biopsies as noted above, COLONOSCOPY Instrument: Olympus variable stiffness pediatric scope 190L Colonoscopy Monitoring: Vital signs and clinical assessment, continuous EKG monitoring, Pulse oximetry, Carbon Dioxide monitoring and blood pressure monitoring were done throughout the procedure. Colon withdrawal time was 14 minutes. Procedure: The patient was placed in the left lateral decubitis position and pre-procedure medications were administered. After a digital rectal examination of the ano-rectum, the video colonoscope was inserted into the rectum and advanced through the colon to the cecum/TI. The colonoscope was slowly withdrawn in a retrograde panoramic fashion and the colon mucosa was carefully examined including a retroflexed view of the rectum. Findings and interventions are described below. Procedure Difficulty:moderate--pressure applied Findings: Terminal Ileum-normal Cecum:normal Ascending Colon: normal Transverse Colon -normal Descending Colon:normal Sigmoid Colon: mild diverticulosis, 4-5 mm sessile polyp removed with cold forceps Rectum: Retroflexion with small internal hemorrhoids, grade I Anorectum - normal Colon preparation: [place] Bowel Preparation Scale Right colon; 2 Transverse colon: 2 Left colon; 2 (0 = Unprepared colon segment with mucosa not seen due to solid stool that cannot be cleared. 1 = Portion of mucosa of the colon segment seen, but other areas of the colon segment not well seen due to staining, residual stool and/or opaque liquid. 2 = Minor amount of residual staining, small fragments of stool and/or opaque liquid, but mucosa of colon segment seen well. 3 = Entire mucosa of colon segment seen well with no residual staining, small fragments of stool or opaque liquid) Impression and Post Procedure Diagnosis: Endoscopy Findings: esophagitis gastritis hiatal hernia Colonoscopy Findings: diverticulosis colon polyp x 1 internal hemorrhoids Plan: Await Pathology results Repeat Colonoscopy in 5-7 years if adenomatous polyp. 10 yrs if hyperplastic or earlier if clinically indicated High fiber diet leaflet avoid straining at stool, epsom salts and sitz bath, anusol supps or cream GERd precautions if h pylori pos then treat Above findings were reviewed with the patient and relevant handouts were provided if indicated.
[2025-06-17 10:20] VITALS: BP 106/65; PULSE 65; RESP 16; TEMP 36.9; O2SAT 95
[2025-06-17 10:30] VITALS: BP 110/72; PULSE 65; RESP 16; TEMP 36.6; O2SAT 95
== END 2025-06-17 11:11 | disposition home or self-care (01) ==
PROVIDERS: PCP Internal Medicine; Visit Provider Internal Medicine Gastroenterology
PROC: (CPT 45380; principal; 2025-06-17 10:20)
DX: Z12.11 Encounter for screening for malignant neoplasm of colon (principal); Z86.0100 Personal history of colon polyps, unspecified; E11.9 Type 2 diabetes mellitus without complications; K64.0 First degree hemorrhoids; K57.30 Diverticulosis of large intestine without perforation or abscess without bleeding; K21.00 Gastro-esophageal reflux disease with esophagitis, without bleeding; K29.70 Gastritis, unspecified, without bleeding; K44.9 Diaphragmatic hernia without obstruction or gangrene; D12.5 Benign neoplasm of sigmoid colon
CPT/HCPCS: 45380; 43239; 82947; 88305; 88313; 88342; J2704

== ENCOUNTER → 2025-06-17 07:40 | Outpatient (BNV) | payer OTHER, SELFPAY | PROVIDERS: PCP Internal Medicine; Visit Provider Internal Medicine Gastroenterology | DX: Z12.11 Encounter for screening for malignant neoplasm of colon (principal); K63.5 Polyp of colon; K57.30 Diverticulosis of large intestine without perforation or abscess without bleeding; K64.0 First degree hemorrhoids; K21.00 Gastro-esophageal reflux disease with esophagitis, without bleeding; K29.70 Gastritis, unspecified, without bleeding | CPT/HCPCS: 43239; 45380 ==